=== PATIENT | female | born 1965 | race Caucasian/White ===

== ENCOUNTER 2018-06-30 05:01 | Inpatient (IN) ==
--- NOTE | 2018-06-30 05:09 | Emergency Department Note ---
Disposition Clinical Impression: DKA (diabetic ketoacidoses) Qualifiers: Diabetes mellitus type: type 2 Diabetes mellitus complication detail: without coma Qualified Code(s): E11.10 - Type 2 diabetes mellitus with ketoacidosis without coma Leukocytosis Qualifiers: Leukocytosis type: unspecified Qualified Code(s): D72.829 - Elevated white blood cell count, unspecified Altered mental status Qualifiers: Altered mental status type: unspecified Qualified Code(s): R41.82 - Altered mental status, unspecified Disposition: Admitted As Inpatient Condition: Critical Referrals: NONE,PCP [Primary Care Provider] - Forms: ED Satisfaction Letter Time of Disposition: 06:54 General Adult HPI - General Chief complaint: ED Altered Mental Status Stated complaint: altered mental status Time Seen by Provider: 06/30/18 05:06 Source: patient, EMS Mode of arrival: EMS Limitations: no limitations Nursing Notes Reviewed: Yes Vital Signs Reviewed: Yes - History of Present Illness HPI Narrative: Patient is a change, unknown per day and unknown age. She arrives via EMS with concern for altered mental status and DKA. Patient was from home, has a history of developmental delay and diabetes, lives with her elderly mother. Mother stated to EMS that the patient had been altered but unknown for how long. Unknown what her insulin regimen is a home where she has any other comorbidities. EMS states that they performed a blood glucose and it was registered as high. They also state that her initial O2 sat was 84% and the place her on a nonrebreather. They state that she has been combative while in route. They were unable to get any history from her or have her follow any commands. Patient altered, moaning, tachypnic and tachycardic on presentation. Unable to obtain ROS. Unable to follow commands. - Related Data Allergies Allergy/AdvReac Type Severity Reaction Status Date / Time pseudoephedrine Allergy Rash Verified 06/30/18 06:48 [From Sudafed] Limitations: ROS unobtainable due to patients medical condition Past Medical History - Past Medical History Source: unable to obtain Physical Exam - General Limitations: altered mental status General appearance: other (mouth breathing, moaning, lethargic) - Head Head exam: atraumatic, normocephalic, normal inspection - Eye Eye exam: Present: PERRL, EOMI, miosis - ENT ENT exam: mucous membranes dry - Neck Neck exam: Present: normal inspection, full ROM, trachea midline - Chest Chest inspection: Present: normal inspection, symmetric chest wall rise - Respiratory Respiratory exam: Present: normal lung sounds bilaterally - Cardiovascular Cardiovascular exam: Present: normal rhythm, tachycardia, normal heart sounds - Abdominal Exam Abdominal exam: Present: soft, Non-Tender. Absent: tenderness, distention, guarding, rebound, rigidity - Extremities Exam Extremities exam: Present: normal inspection, full ROM. Absent: tenderness, pedal edema - Neurological Exam Neurological exam: Present: other (lethargic, moaning, not following commands, not answering questions. ) - Skin Skin exam: Present: warm, dry, intact, normal color Course Course Narrative: Patient has developmental delay but unsure of her baseline mental status. She is tachycardic and tachypneic on presentation, dry mucous membranes, moaning, in conference was held, not answering any questions or following commands. She had a reported high glucose readings have had a repeated high glucose reading here on arrival. Currently concern for DKA. Patient was initially on a no nrebreather, I transitioned her over to 2 L nasal cannula oxygen as she is still satting in the upper 90s. Did not intubate on arrival due to concern for not being able to keep up with patient's respiratory rate with current concern for DKA. Family is supposed to be arriving shortly but no one is available at bedside to confirm her baseline mental status with history of developmental delay. We will go ahead and perform CT the head, chest x-ray, urinalysis to assess for signs of infection. Also obtain lactic acid and blood cultures. Also obtain DKA labs including beta hydroxybutyric acid, glucose, ABG. We will go ahead and give the patient 2 L normal saline bolus. We will go ahead and prepare insulin drip and then start once we get potassium back. EK06/30/2018 at 05:09. Sinus tachycardia. Heart rate 147. NC 130. QRS 91. QTC 402. Normal axis. No acute ST elevation or depression. Concern for possible peaked T waves in V2, V3. 06:28 labs show leukocytosis, acidosis of 7.18. Glucose of 999. Gap of 36. Bicarbonate less than 4. She also had elevated lactic acid level was 6.3. Elevated beta hydroxybutyric acid level. Urinalysis negative for bacteria. Chest x-ray negative for any acute cardio pulmonary process. Head CT negative for any acute intracranial abnormality. Currently concern DKA. Patient is maintaining her airway. Her blood pressure is 105 systolic. She has ultrasound peripheral line. Good access. Her heart rate is still in the 130s. 2 L normal saline bolus was ordered along with an insulin drip. Potassium 5.3. Waiting for family to arrive at bedside. The bread icer paged for ICU admission. 06:52 no bread icer call back. I talked with hospitalist instead who has accepted the patient to ICU for admission. Patient's heart rate and tachypnea is slowly improving. Still maintaining her airway. Insulin drip was started. Mother is now present and states that the patient was feeling unwell yesterday has not glucose in the 300s and had some nausea and vomiting and then progressively worsened. Patient does not have a source of infection at this time. Think by and Zosyn was started empirically in the beginning of the workup due to little history and patient being a poor historian. I do not feel that patient needs LP or meningitis workup as she has a reasonable source for altered mental status secondary to DKA at this time. Chest X-Ray 06/30/18 05:06 IMPRESSION: Negative low lung volume study D/ / Chapincito Walker MD / Chapincito Walker MD Interpreting Provider: Chapincito Walker MD Head CT 06/30/18 05:08 IMPRESSION: No acute intracranial abnormality. Mild paranasal sinus disease D/ / Chapincito Walker MD / Chapincito Walker MD Interpreting Provider: Chapincito Walker MD Vital Signs Temperature 97.9 F 06/30/18 05:10 Pulse Rate 145 06/30/18 05:10 Respiratory Rate 44 06/30/18 05:10 Blood Pressure 123/57 06/30/18 05:10 O2 Sat by Pulse Oximetry 100 06/30/18 05:10 Temperature 97.9 F 06/30/18 05:10 Pulse Rate 134 06/30/18 06:25 Respiratory Rate 32 06/30/18 06:25 Blood Pressure 102/64 06/30/18 06:25 O2 Sat by Pulse Oximetry 100 06/30/18 06:25 Oxygen Delivery Oxygen Delivery Nasal Cannula Medical Decision Making - [facility] Narrative Medical decision making narrative: Patient has developmental delay but unsure of her baseline mental status. She is tachycardic and tachypneic on presentation, dry mucous membranes, moaning, in conference was held, not answering any questions or following commands. She had a reported high glucose readings have had a repeated high glucose reading here on arrival. Currently concern for DKA. Patient was initially on a nonrebreather, I transitioned her over to 2 L nasal cannula oxygen as she is still satting in the upper 90s. Did not intubate on arrival due to concern for not being able to keep up with patient's respiratory rate with current concern for DKA. Family is supposed to be arriving shortly but no one is available at bedside to confirm her baseline mental status with history of developmental delay. We will go ahead and perform CT the head, chest x-ray, urinalysis to assess for signs of infection. Also obtain lactic acid and blood cultures. A lso obtain DKA labs including beta hydroxybutyric acid, glucose, ABG. We will go ahead and give the patient 2 L normal saline bolus. We will go ahead and prepare insulin drip and then start once we get potassium back. EK06/30/2018 at 05:09. Sinus tachycardia. Heart rate 147. NC 130. QRS 91. QTC 402. Normal axis. No acute ST elevation or depression. Concern for possible peaked T waves in V2, V3. 06:28 labs show leukocytosis, acidosis of 7.18. Glucose of 999. Gap of 36. Bicarbonate less than 4. She also had elevated lactic acid level was 6.3. Elevated beta hydroxybutyric acid level. Urinalysis negative for bacteria. Chest x-ray negative for any acute cardio pulmonary process. Head CT negative for any acute intracranial abnormality. Currently concern DKA. Patient is maintaining her airway. Her blood pressure is 105 systolic. She has ultrasound peripheral line. Good access. Her heart rate is still in the 130s. 2 L normal saline bolus was ordered along with an insulin drip. Potassium 5.3. Waiting for family to arrive at bedside. The bread icer paged for ICU admission. 06:52 no bread icer call back. I talked with hospitalist instead who has accepted the patient to ICU for admission. Patient's heart rate and tachypnea is slowly improving. Still maintaining her airway. Insulin drip was started. Mother is now present and states that the patient was feeling unwell yesterday has not glucose in the 300s and had some nausea and vomiting and then progressively worsened. Patient does not have a source of infection at this time. Think by and Zosyn was started empirically in the beginning of the workup due to little history and patient being a poor historian. I do not feel that patient needs LP or meningitis workup as she has a reasonable source for altered mental status secondary to DKA at this time. - Medical Records Medical records reviewed: Yes I reviewed the patient's medical records. - Lab Data Lab results reviewed: Yes I reviewed the patient's lab results. Result diagrams: 06/30/18 05:15 06/30/18 05:15 Lab Results 06/30/18 06/30/18 06/30/18 Range/Units 05:09 05:15 05:15 WBC 22.2 H (4.3-11.1) K/mcL RBC 3.54 L (3.82-4.97) M/mcL Hgb 12.1 (11.5-15.4) g/dL Hct 39.8 (35.3-44.9) % MCV 112.4 H (83.0-100.0) fL MCH 34.2 H (28.0-33.3) pg MCHC 30.4 L (31.6-35.5) g/dL RDW 12.5 (11.5-14.5) % Plt Count 308 (140-400) K/mcL MPV 11.6 (9.4-12.4) fL Immature Gran % 0.7 (0-4) % Seg Neutrophils % 78.3 % Lymphocytes % 10.8 % Monocytes % 9.9 % Eosinophils % 0.0 % Basophils % 0.3 % Neutrophils # 17.4 H (1.6-8.9) K/mcL Lymphocytes # 2.4 (0.6-4.6) K/mcL Monocytes # 2.2 H (0.0-1.3) K/mcL Eosinophils # 0.0 (0.0-0.6) K/mcL Basophils # 0.1 (0.0-0.2) K/mcL Platelet Estimate Normal (Normal) Macrocytosis Present A (Not Present) Sample Site L Radial ABG pH 7.18 L* (7.32-7.45) pH Units ABG pCO2 < 13 L* (35-45) mmHg ABG pO2 138 H (85-104) mmHg ABG HCO3 TNP ABG Total CO2 TNP ABG O2 Saturation TNP ABG Base Excess TNP Chay Test N/A O2 Delivery Device Cannula Inspired O2 28.0 (1-15=lpm [id number]=%) Sodium 130 L (136-145) mEq/L Potassium 5.3 H (3.5-5.1) mEq/L Chloride 90 L (98-107) mEq/L Carbon Dioxide < 4 L* (23-29) mEq/L BUN 31 H (8-23) mg/dL Creatinine 1.54 H (0.60-1.20) mg/dL Est GFR ( Amer) 36 L (> 60) Est GFR (Non-Af Amer) 30 L (> 60) BUN/Creatinine Ratio 20 (6-26) Glucose 999 H* (70-105) mg/dL Calculated Osmolality 327 H (280-300) Lactic Acid (0.5-2.2) mmol/L Calcium 9.6 (8.6-10.3) mg/dL Phosphorus 7.6 H (2.7-4.5) mg/dL Magnesium 2.2 (1.6-2.6) mg/dL Troponin I < 0.03 (< 0.04) ng/mL Beta-Hydroxybutyric Acd (0.02-0.27) mmol/L Urine Color (Yellow) Urine Clarity (Clear) Urine pH (5.0-8.0) pH Units Ur Specific Joshua (1.010-1.025) Urine Protein (Neg-Trace) mg/dL Urine Glucose (UA) (Normal) mg/dL Urine Ketones (Negative) mg/dL Urine Blood (Negative) Urine Nitrite (Negative) Urine Bilirubin (Negative) Urine Urobilinogen (Normal) mg/dL Ur Leukocyte Esterase (Negative) Urine Microscopic RBC (0-3) per hpf Urine Microscopic WBC (0-3) per hpf Ur Squamous Epith Cells (None-Few) per lpf Urine Bacteria (None-Few) per hpf Hyaline Casts (None-Few) per lpf Ur Culture Indicated? (NO) Salicylates < 2.5 L (15.0-30.0) mg/dL Person Notif of Crit DAPHNE 06/30/18 06/30/18 06/30/18 Range/Units 05:15 05:15 05:43 WBC (4.3-11.1) K/mcL RBC (3.82-4.97) M/mcL Hgb (11.5-15.4) g/dL Hct (35.3-44.9) % MCV (83.0-100.0) fL MCH (28.0-33.3) pg MCHC (31.6-35.5) g/dL RDW (11.5-14.5) % Plt Count (140-400) K/mcL MPV (9.4-12.4) fL Immature Gran % (0-4) % Seg Neutrophils % % Lymphocytes % % Monocytes % % Eosinophils % % Basophils % % Neutrophils # (1.6-8.9) K/mcL Lymphocytes # (0.6-4.6) K/mcL Monocytes # (0.0-1.3) K/mcL Eosinophils # (0.0-0.6) K/mcL Basophils # (0.0-0.2) K/mcL Platelet Estimate (Normal) Macrocytosis (Not Present) Sample Site ABG pH (7.32-7.45) pH Units ABG pCO2 (35-45) mmHg ABG pO2 (85-104) mmHg ABG HCO3 ABG Total CO2 ABG O2 Saturation ABG Base Excess Chay Test O2 Delivery Device Inspired O2 (1-15=lpm [id number]=%) Sodium (136-145) mEq/L Potassium (3.5-5.1) mEq/L Chloride (98-107) mEq/L Carbon Dioxide (23-29) mEq/L BUN (8-23) mg/dL Creatinine (0.60-1.20) mg/dL Est GFR ( Amer) (> 60) Est GFR (Non-Af Amer) (> 60) BUN/Creatinine Ratio (6-26) Glucose (70-105) mg/dL Calculated Osmolality (280-300) Lactic Acid 6.3 H* (0.5-2.2) mmol/L Calcium (8.6-10.3) mg/dL Phosphorus (2.7-4.5) mg/dL Magnesium (1.6-2.6) mg/dL Troponin I (< 0.04) ng/mL Beta-Hydroxybutyric Acd > 2.00 H (0.02-0.27) mmol/L Urine Color Yellow (Yellow) Urine Clarity Clear (Clear) Urine pH 6.0 (5.0-8.0) pH Units Ur Specific Joshua 1.025 (1.010-1.025) Urine Protein 30 H (Neg-Trace) mg/dL Urine Glucose (UA) >=1000 H (Normal) mg/dL Urine Ketones 80 H (Negative) mg/dL Urine Blood Negative (Negative) Urine Nitrite Negative (Negative) Urine Bilirubin Large H (Negative) Urine Urobilinogen Normal (Normal) mg/dL Ur Leukocyte Esterase Negative (Negative) Urine Microscopic RBC 5-15 H (0-3) per hpf Urine Microscopic WBC 3-5 H (0-3) per hpf Ur Squamous Epith Cells Many H (None-Few) per lpf Urine Bacteria None Seen (None-Few) per hpf Hyaline Casts None Seen (None-Few) per lpf Ur Culture Indicated? NO (NO) Salicylates (15.0-30.0) mg/dL Person Notif of Crit - Radiology Data Radiology results reviewed: Yes I reviewed the patient's radiology results. Chest X-Ray 06/30/18 05:06 IMPRESSION: Negative low lung volume study D/ / Chapincito Walker MD / Chapincito Walker MD Interpreting Provider: Chapincito Walker MD Head CT 06/30/18 05:08 IMPRESSION: No acute intracranial abnormality. Mild paranasal sinus disease D/ / Chapincito Walker MD / Chapincito Walker MD Interpreting Provider: Chapincito Walker MD - EKG Data EKG #1 EKG attestation: Yes I reviewed and interpreted this EKG. Paola Bennett.B.A.R. Situation: Demographics, MOA Background: Presenting Complaint, Relevant PMH, Meds, & Allergies Assessment: Vital Signs, Course and respsone to treatment, Exam Concerns, Patient/Family Expectation, Pertinant Lab Results Recommendation: Barrier(s) to disposition, Recommendation based on pending studies, treatments, or consults Paola Report Given to: Dr. Milana Guevara Repor Time: 06:54 Attestation Statement - Attestation Attestation: I have seen this patient with the resident physician, I have personally evaluated this patient. I had reviewed the chart and document dictation by the resident physician and aM in agreement with the information documented by the resident physician. Please see documentation by the resident physician for complete chart including past medical history, family medical history, review of systems, current history and physical and laboratory and imaging studies. I was present for all procedures, provided direct supervision for all procedures, was present for the entirety of all procedures and provided direct guidance during the procedures. Please see documentation by the resident physician for any procedures performed.
[2018-06-30] MEDS ORDERED: *HR* Dextrose 50 % in Water (Syg) 50 ML SYRINGE IVP PRN ×3 (05:12→17:08)
[2018-06-30 05:14] LABS: ABG PCO2 < 13 mmHg (35-45); ABG PH 7.18 pH Units (7.32-7.45); ABG PO2 138 mmHg (85-104)
[2018-06-30] MEDS ORDERED: 0.9 % Sodium Chloride 1,000 ML ONE ×2 (05:14→05:54)
[2018-06-30] MEDS ORDERED: Insulin Human Regular 100 UNIT in 0.9 % Sodium Chloride 100 ML IVC SCH ×2 (05:15→17:15)
[2018-06-30 05:30] LABS: Basophils # 0.1 K/mcL (0.0-0.2); Basophils % 0.3 %; Hematocrit 39.8 % (35.3-44.9); Hemoglobin 12.1 g/dL (11.5-15.4); Immature Granulocytes % 0.7 % (0-4); Lymphocytes # 2.4 K/mcL (0.6-4.6); Lymphocytes % 10.8 %; Mean Corpuscular HGB Conc 30.4 g/dL (31.6-35.5); Mean Corpuscular Hemoglobin 34.2 pg (28.0-33.3); Mean Corpuscular Volume 112.4 fL (83.0-100.0); Mean Platelet Volume 11.6 fL (9.4-12.4); Monocytes # 2.2 K/mcL (0.0-1.3); Monocytes % 9.9 %; Neutrophils # 17.4 K/mcL (1.6-8.9); Platelet Count 308 K/mcL (140-400); Red Blood Count 3.54 M/mcL (3.82-4.97); Red Cell Distribution Width 12.5 % (11.5-14.5); Segmented Neutrophils % 78.3 %
[2018-06-30] MEDS: 0.9 % Sodium Chloride 1,000 ML IVC SCH ×20 (05:45→20:47)
[2018-06-30 05:56] LABS: Macrocytosis Present (Not Present)
[2018-06-30 05:57] LABS: Bilirubin,Urine Large (Negative); Blood,Urine Negative (Negative); Clarity,Urine Clear (Clear); Color,Urine Yellow (Yellow); Glucose,Urine (UA) >=1000 mg/dL (Normal); Ketones,Urine 80 mg/dL (Negative); Leukocyte Esterase,Urine Negative (Negative); Nitrite,Urine Negative (Negative); Protein,Urine 30 mg/dL (Neg-Trace); Specific Gravity,Urine 1.025 (1.010-1.025); Urobilinogen,Urine Normal (Normal)
[2018-06-30 05:57] LABS: Platelet Estimate Normal (Normal)
[2018-06-30 05:58] LABS: Bacteria,Urine None Seen per hpf (None-Few); Hyaline Casts,Urine None Seen per lpf (None-Few); Squamous Epithelial Cell,Urine Many per lpf (None-Few)
[2018-06-30 06:01] LABS: BUN/Creatinine Ratio 20 (6-26); Blood Urea Nitrogen 31 mg/dL (8-23); Calcium 9.6 mg/dL (8.6-10.3); Chloride 90 mEq/L (98-107); Magnesium 2.2 mg/dL (1.6-2.6); Phosphorous 7.6 mg/dL (2.7-4.5); Potassium 5.3 mEq/L (3.5-5.1); Sodium 130 mEq/L (136-145); Troponin I < 0.03 ng/mL (< 0.04); eGFR For Non-African Americans 30 (> 60)
[2018-06-30] MEDS ORDERED: Piperacillin/Tazobactam 3.375 GM in 0.9 % Sodium Chloride Mini Bag 100 ML IVPB ONE (06:06)
[2018-06-30 06:08] LABS: Glucose 999 mg/dL (70-105); Osmolality,Calculated 327 (280-300)
[2018-06-30 06:22] LABS: Carbon Dioxide < 4 mEq/L (23-29)
--- NOTE | 2018-06-30 06:42 | Emergency Department Note ---
Disposition Clinical Impression: DKA (diabetic ketoacidoses) Qualifiers: Diabetes mellitus type: type 2 Diabetes mellitus complication detail: without coma Qualified Code(s): E11.10 - Type 2 diabetes mellitus with ketoacidosis without coma Leukocytosis Qualifiers: Leukocytosis type: unspecified Qualified Code(s): D72.829 - Elevated white blood cell count, unspecified Altered mental status Qualifiers: Altered mental status type: unspecified Qualified Code(s): R41.82 - Altered mental status, unspecified Disposition: Admitted As Inpatient Condition: Critical Forms: ED Satisfaction Letter General Adult HPI - General Chief complaint: ED Altered Mental Status Stated complaint: altered mental status Time Seen by Provider: 06/30/18 05:06 Source: patient, EMS Mode of arrival: EMS Limitations: altered mental status - History of Present Illness Pain Scale: 0 - Related Data Allergies Allergy/AdvReac Type Severity Reaction Status Date / Time Unable to Assess Allergy Unverified 06/30/18 05:44 Past Medical History - Past Medical History Medical history: Reports: no medical history - Social History Smoking Status: Unknown if ever smoked Physical Exam - General Limitations: altered mental status General appearance: other (mouth breathing, moaning, lethargic) Course Vital Signs Temperature 97.9 F 06/30/18 05:10 Pulse Rate 145 06/30/18 05:10 Respiratory Rate 44 06/30/18 05:10 Blood Pressure 123/57 06/30/18 05:10 O2 Sat by Pulse Oximetry 100 06/30/18 05:10 Temperature 97.9 F 06/30/18 05:10 Pulse Rate 134 06/30/18 06:25 Respiratory Rate 32 06/30/18 06:25 Blood Pressure 102/64 06/30/18 06:25 O2 Sat by Pulse Oximetry 100 06/30/18 06:25 Oxygen Delivery Oxygen Delivery Nasal Cannula Medical Decision Making - Lab Data Result diagrams: 06/30/18 05:15 06/30/18 05:15 Lab Results 06/30/18 06/30/18 06/30/18 Range/Units 05:09 05:15 05:15 WBC 22.2 H (4.3-11.1) K/mcL RBC 3.54 L (3.82-4.97) M/mcL Hgb 12.1 (11.5-15.4) g/dL Hct 39.8 (35.3-44.9) % MCV 112.4 H (83.0-100.0) fL MCH 34.2 H (28.0-33.3) pg MCHC 30.4 L (31.6-35.5) g/dL RDW 12.5 (11.5-14.5) % Plt Count 308 (140-400) K/mcL MPV 11.6 (9.4-12.4) fL Immature Gran % 0.7 (0-4) % Seg Neutrophils % 78.3 % Lymphocytes % 10.8 % Monocytes % 9.9 % Eosinophils % 0.0 % Basophils % 0.3 % Neutrophils # 17.4 H (1.6-8.9) K/mcL Lymphocytes # 2.4 (0.6-4.6) K/mcL Monocytes # 2.2 H (0.0-1.3) K/mcL Eosinophils # 0.0 (0.0-0.6) K/mcL Basophils # 0.1 (0.0-0.2) K/mcL Platelet Estimate Normal (Normal) Macrocytosis Present A (Not Present) Sample Site L Radial ABG pH 7.18 L* (7.32-7.45) pH Units ABG pCO2 < 13 L* (35-45) mmHg ABG pO2 138 H (85-104) mmHg ABG HCO3 TNP ABG Total CO2 TNP ABG O2 Saturation TNP ABG Base Excess TNP Chay Test N/A O2 Delivery Device Cannula Inspired O2 28.0 (1-15=lpm [id number]=%) Sodium 130 L (136-145) mEq/L Potassium 5.3 H (3.5-5.1) mEq/L Chloride 90 L (98-107) mEq/L Carbon Dioxide < 4 L* (23-29) mEq/L BUN 31 H (8-23) mg/dL Creatinine 1.54 H (0.60-1.20) mg/dL Est GFR ( Amer) 36 L (> 60) Est GFR (Non-Af Amer) 30 L (> 60) BUN/Creatinine Ratio 20 (6-26) Glucose 999 H* (70-105) mg/dL Calculated Osmolality 327 H (280-300) Lactic Acid (0.5-2.2) mmol/L Calcium 9.6 (8.6-10.3) mg/dL Phosphorus 7.6 H (2.7-4.5) mg/dL Magnesium 2.2 (1.6-2.6) mg/dL Troponin I < 0.03 (< 0.04) ng/mL Beta-Hydroxybutyric Acd (0.02-0.27) mmol/L Urine Color (Yellow) Urine Clarity (Clear) Urine pH (5.0-8.0) pH Units Ur Specific [place] (1.010-1.025) Urine Protein (Neg-Trace) mg/dL Urine Glucose (UA) (Normal) mg/dL Urine Ketones (Negative) mg/dL Urine Blood (Negative) Urine Nitrite (Negative) Urine Bilirubin (Negative) Urine Urobilinogen (Normal) mg/dL Ur Leukocyte Esterase (Negative) Urine Microscopic RBC (0-3) per hpf Urine Microscopic WBC (0-3) per hpf Ur Squamous Epith Cells (None-Few) per lpf Urine Bacteria (None-Few) per hpf Hyaline Casts (None-Few) per lpf Ur Culture Indicated? (NO) Person Notif of Crit DAPHNE 06/30/18 06/30/18 06/30/18 Range/Units 05:15 05:15 05:43 WBC (4.3-11.1) K/mcL RBC (3.82-4.97) M/mcL Hgb (11.5-15.4) g/dL Hct (35.3-44.9) % MCV (83.0-100.0) fL MCH (28.0-33.3) pg MCHC (31.6-35.5) g/dL RDW (11.5-14.5) % Plt Count (140-400) K/mcL MPV (9.4-12.4) fL Immature Gran % (0-4) % Seg Neutrophils % % Lymphocytes % % Monocytes % % Eosinophils % % Basophils % % Neutrophils # (1.6-8.9) K/mcL Lymphocytes # (0.6-4.6) K/mcL Monocytes # (0.0-1.3) K/mcL Eosinophils # (0.0-0.6) K/mcL Basophils # (0.0-0.2) K/mcL Platelet Estimate (Normal) Macrocytosis (Not Present) Sample Site ABG pH (7.32-7.45) pH Units ABG pCO2 (35-45) mmHg ABG pO2 (85-104) mmHg ABG HCO3 ABG Total CO2 ABG O2 Saturation ABG Base Excess Chay Test O2 Delivery Device Inspired O2 (1-15=lpm [id number]=%) Sodium (136-145) mEq/L Potassium (3.5-5.1) mEq/L Chloride (98-107) mEq/L Carbon Dioxide (23-29) mEq/L BUN (8-23) mg/dL Creatinine (0.60-1.20) mg/dL Est GFR ( Amer) (> 60) Est GFR (Non-Af Amer) (> 60) BUN/Creatinine Ratio (6-26) Glucose (70-105) mg/dL Calculated Osmolality (280-300) Lactic Acid 6.3 H* (0.5-2.2) mmol/L Calcium (8.6-10.3) mg/dL Phosphorus (2.7-4.5) mg/dL Magnesium (1.6-2.6) mg/dL Troponin I (< 0.04) ng/mL Beta-Hydroxybutyric Acd > 2.00 H (0.02-0.27) mmol/L Urine Color Yellow (Yellow) Urine Clarity Clear (Clear) Urine pH 6.0 (5.0-8.0) pH Units Ur Specific [place] 1.025 (1.010-1.025) Urine Protein 30 H (Neg-Trace) mg/dL Urine Glucose (UA) >=1000 H (Normal) mg/dL Urine Ketones 80 H (Negative) mg/dL Urine Blood Negative (Negative) Urine Nitrite Negative (Negative) Urine Bilirubin Large H (Negative) Urine Urobilinogen Normal (Normal) mg/dL Ur Leukocyte Esterase Negative (Negative) Urine Microscopic RBC 5-15 H (0-3) per hpf Urine Microscopic WBC 3-5 H (0-3) per hpf Ur Squamous Epith Cells Many H (None-Few) per lpf Urine Bacteria None Seen (None-Few) per hpf Hyaline Casts None Seen (None-Few) per lpf Ur Culture Indicated? NO (NO) Person Notif of Crit Attestation Statement - Attestation Attestation: I have seen this patient with the resident physician, I have personally evaluated this patient. I had reviewed the chart and document dictation by the resident physician and aM in agreement with the information documented by the resident physician. Please see documentation by the resident physician for complete chart including past medical history, family medical history, review of systems, current history and physical and laboratory and imaging studies. I was present for all procedures, provided direct supervision for all procedures, was present for the entirety of all procedures and provided direct guidance during the procedures. Please see documentation by the resident physician for any procedures performed. Patient was brought in for altered mental status and high blood sugar from the paramedics. No further history was really available upon arrival the paramedics and they were called for altered mental status and elevated blood sugar, they report upon their arrival patient was breathing very fast, low sugar was critical high in the transported the patient to the emergency department. Eventually the patient's mother was able to make it to the emergency department was able to provide further history although at the beginning history was not available. The mother states that the patient was not feeling well starting Thursday night just feeling tired and all throughout the day yesterday was not feeling well generally weak with some intermittent nausea vomiting with some fluctuations in her blood sugar but the highest they got was in the 300s. When the mother came home from work at the patient seemed tired but was talking and asked for water, she gave her a glass of water then went back to check on her about half an hour later she requested more water but then patient started becoming less responsive. The mother states that the patient has been in DKA multiple times in the past, and in fact has been much worse than today and has required intubation. Upon arrival the patient the patient had a decreased level of consciousness, she was without purposeful response apart from withdrawal to pain she did make incomprehensible sounds spontaneously and her eyes worse but his open although she was not talking, was unable to follow any commands. Blood sugar was found to be critical high. Pupils were slightly small and reactive, oropharynx was very dry appearing lungs were clear heart was tachycardic but regular, significant tachypnea was noted rectal temp was normal. Abdomen was soft and nondistended. No rash or petechiae. Patient was moving her neck spontaneously without difficulty but unable to assess for true meningeal sign, as she is unable to cooperate with exam. IVs were established, large bolus of IV fluids was initiated, insulin drip per DKA was initiated. A ABG was obtained, which demonstrated a pH of 7.18, PCO2 was less than 13 saturation within acceptable limits. This was on nasal cannula oxygen of 2 L. CBC showed leukocytosis of 22,000 no other acute findings. Renal panel showed slightly elevated creatinine of 1.5 blood sugar of 999 bicarbonate was less than 4 potassium was 5.3. Lactate elevated at 6.3. Urinalysis within acceptable limits. Significant elevated ketones. Elevated phosphorus magnesium within acceptable limits. Chest x-ray as interpreted by radiology showed no acute abnormality. Head CT showed no acute findings as interpreted by radiology as were for altered mental status, with no history available upon arrival the patient. Patient did have persistent significant tachypnea, improvement of heart rate. EKG was a sinus rhythm sinus tachycardia no acute ischemia no other acute findings as interpreted by myself. Secondary to patient with significant compensation for her metabolic acidosis with significant tachypnea, was felt that intubation was not indicated, as she is maintaining her airway, pH is greater than 7.1, and she is compensating for her profound metabolic acidosis with a respiratory alkalosis, but we will continue to monitor very closely for need for respiratory support but maintaining respiratory rates as fast as this patient is breathing would be very difficult to maintain with mechanical ventilation, and she continues to maintain her airway. The mother states that she is actually way more responsive now than she was at home and that she has seen the patient much worse in the past. Secondary to tachypnea or tachycardia elevated lactate and leukocytosis blood cultures were ordered and patient was given IV antibiotics, however I am highly suspicious that this is all related to diabetic ketoacidosis at this time. The mother states that she had not complaining of any headache or neck pain over the last day or so, and was talking to her before this all started, I am not suspicious of meningitis at this time. Patient will be admitted to the ICU for further management. Total critical care time as provided by myself excluding any procedures performed was 65 minutes.
[2018-06-30 06:43] LABS: Salicylate < 2.5 mg/dL (15.0-30.0)
[2018-06-30] MEDS ORDERED: D5% in 0.45% NACL w KCl 20 MEQ/1,000 ML MLS IVC PRN (07:13)
[2018-06-30] MEDS ORDERED: Insulin Regular, Human 100 UNIT/ML IV PRN (07:13)
[2018-06-30] MEDS ORDERED: Naloxone 0.4 MG/ML INJ IVP PRN (07:13)
[2018-06-30] MEDS ORDERED: D5% in 0.45% NACL 1,000 ML IVC PRN (07:13)
[2018-06-30] MEDS ORDERED: Aminoglycoside Consult 1 EACH MC ONE (07:28)
[2018-06-30 07:47] LABS: VBG HCO3 4 mEq/L (21-27); VBG PCO2 24 mmHg (41-51); VBG PH 6.85 pH Units (7.32-7.42); VBG PO2 100 mmHg (25-50)
[2018-06-30 08:03] LABS: Amphetamine Screen,Urine Negative ng/mL (Cutoff=1000); Barbiturate Screen,Urine Negative ng/mL (Cutoff=200); Benzodiazepines Screen,Urine Negative ng/mL (Cutoff=200); Cannabinoid Screen,Urine Negative ng/mL (Cutoff = 50); Cocaine Screen,Urine Negative ng/mL (Cutoff= 300); Opiate Screen,Urine Negative ng/mL (Cutoff=300); Phencyclidine Screen,Urine Negative ng/mL (Cutoff=25)
[2018-06-30 08:10] LABS: Mean Corpuscular HGB Conc 29.8 g/dL (31.6-35.5)
[2018-06-30 08:11] LABS: Hematocrit 41.6 % (35.3-44.9); Hemoglobin 12.4 g/dL (11.5-15.4); Mean Corpuscular Hemoglobin 34.5 pg (28.0-33.3); Mean Corpuscular Volume 115.9 fL (83.0-100.0); Mean Platelet Volume 11.4 fL (9.4-12.4); Platelet Count 282 K/mcL (140-400); Red Blood Count 3.59 M/mcL (3.82-4.97); Red Cell Distribution Width 12.4 % (11.5-14.5)
[2018-06-30 08:12] LABS: Nucleated Red Blood Cells 0.1 /100 WBC (0)
[2018-06-30] MEDS ORDERED: Sodium Bicarbonate 50 MEQ/50 ML VIAL IVP ONE (08:31)
[2018-06-30 08:35] LABS: Calcium 9.1 mg/dL (8.6-10.3); Magnesium 2.1 mg/dL (1.6-2.6); Phosphorous 7.7 mg/dL (2.7-4.5); Potassium 4.7 mEq/L (3.5-5.1)
--- NOTE | 2018-06-30 08:38 | Internal Med History&Physical ---
Date of Encounter: 06/30/18 Time of Encounter: 07:00 Internal Medicine - H&P: HPI Admitted From: Home Plans for Post Hospital Care: Home History of present illness: Ms. Shay is a 52 year old female with history of insulin-dependent diabetes and multiple DKA admissions, hypothyroidism and hyperlipidemia presented to the emergency department with altered mental status and elevated blood glucose. History is limited as patient is unable to provide much history. As per patient his mother she does administer her own insulin when asked from the patient had much insulin if she administers long-acting insulin to herself she is unsure. She reports that she covers her glucose levels with sliding scale insulin. When asked to recall her medication list she is unable to name her medications however her mother provided us with her medication list. As per her mother she had multiple episodes of DKA's they were unable to recall them was the last time she had DKA. As per patient her blood glucose has been running high for a few days and she is been trying to covered with her insulin at home. Her mother insisted that she will come to the emergency department for further evaluation and management of her elevated blood glucose levels. Patient denies dysuria, cough, fever, chills, nausea, vomiting or diarrhea. Has had no chest pain, no palpitations or shortness of breath. Past Med Surg Social Fam HX - Past Medical History Medical history: diabetes, thyroid disease, other Additional medical history: "something about her heart" - Social History Smoking Status: Unknown if ever smoked Smokeless Tobacco Status: No Alcohol use: none - Family History Mother Living Status: Still Living Brother Living Status: Still Living Hx Family Genitourinary Disorders: Yes (dialysis) Hx Family Endocrine Disorder: Yes (diabetes) Internal Medicine - H&P: Meds Aspirin 03/26/17 [History] Cholestyramine 03/26/17 [History] Cyclobenzaprine [Flexeril] 10 mg PO TID #20 tablet 03/26/17 [Rx] Ferrous Gluconate 03/26/17 [History] Furosemide 03/26/17 [History] Gabapentin 03/26/17 [History] Gabapentin [Neurontin] 300 mg PO TID #20 capsule 03/26/17 [Rx] Hydrocodone/Acetaminophen 03/26/17 [History] Levothyroxine 03/26/17 [History] Lisinopril 03/26/17 [History] Meloxicam 15 mg PO DAILY #10 tablet 03/26/17 [Rx] Multivitamins 03/26/17 [History] Novolog 03/26/17 [History] Rosuvastatin 03/26/17 [History] Sertraline 03/26/17 [History] Tresiba Flextouch U-100 03/26/17 [History] Dicyclomine 05/11/18 [History] Meclizine 05/11/18 [History] Naproxen [Naprosyn] 500 mg PO BID PRN #20 tablet 05/11/18 [Rx] Ranitidine HCl 05/11/18 [History] Simvastatin 05/11/18 [History] Allergy/AdvReac Type Severity Reaction Status Date / Time pseudoephedrine Allergy Rash Verified 06/30/18 07:59 [From [facility]] All Systems PM: A 10-system review of systems was performed and is negative for pertinent findings except as documented above in the HPI. - Constitutional Vitals: Temp Pulse Resp BP Pulse Ox 97.9 F 135 26 140/83 100 06/30/18 05:10 06/30/18 08:10 06/30/18 08:10 06/30/18 08:10 06/30/18 08:10 Exam: General: Patient is alert, oriented, in moderate distress, tachypneic, Head: atraumatic, normocephalic, Eye: normal appearance, PERRL, no scleral icterus, no conjunctival injection ENT: mucous membranes extremely dry, normal external ear exam Neck: normal inspection, trachea midline, full ROM, Chest: normal inspection, symmetric chest rise Respiratory: Good respiratory effort. Tachypneic, Bilateral breath sounds are clear without wheezing, crackles, or rhonchi. Cardiovascular: Tachycardic s1 and s2 No clicks, rubs, gallops, or murmors. Abdomen: Bowel sounds present normoactive x-4 quadrants. Abdomen is soft, no ndistended. no Epigastric tenderness. No guarding or rebound. No organomegaly noted, obese musculoskeletal: Spontaneously moving all extremities. no edema, no calf tenderness, no ulcers bilateral feet Skin: warm, dry, intact. Neuro: Alert and oriented x3, no focal deficits Psych: Patient's affect is normal Internal Med - H&P Results - Labs CBC & Chem 7: 06/30/18 07:57 06/30/18 09:34 Labs: Short CBC 06/30/18 06/30/18 Range/Units 05:15 07:57 WBC 22.2 H 25.7 H (4.3-11.1) K/mcL Hgb 12.1 12.4 (11.5-15.4) g/dL Hct 39.8 41.6 (35.3-44.9) % Plt Count 308 282 (140-400) K/mcL Neutrophils # 17.4 H (1.6-8.9) K/mcL BMP 06/30/18 05:15 Sodium 130 L Potassium 5.3 H Chloride 90 L Carbon Dioxide < 4 L* BUN 31 H Creatinine 1.54 H Glucose 999 H* Calcium 9.6 Cardiac Enzymes 06/30/18 Range/Units 05:15 Troponin I < 0.03 (< 0.04) ng/mL Urine 06/30/18 Range/Units 05:43 Urine Color Yellow (Yellow) Urine Clarity Clear (Clear) Urine pH 6.0 (5.0-8.0) pH Units Ur Specific [place] 1.025 (1.010-1.025) Urine Protein 30 H (Neg-Trace) mg/dL Urine Glucose (UA) >=1000 H (Normal) mg/dL - ABG Interpretation ABG results: 06/30/18 06/30/18 05:09 07:40 ABG pH 7.18 L* ABG pCO2 < 13 L* ABG pO2 138 H ABG HCO3 TNP ABG Total CO2 TNP ABG O2 Saturation TNP ABG Base Excess TNP VBG pH 6.85 L* VBG pCO2 24 L VBG pO2 100 H VBG HCO3 4 L - EKG Data -: EKG Interpreted by Myself (Sinus tachycardia, QTC of 432) - EKG Data Prior EKG available for review: no - Impressions ITS Impressions Chest X-Ray 06/30/18 05:06 IMPRESSION: Negative low lung volume study D/ / Chapincito Walker MD / Chapincito aWlker MD Interpreting Provider: Chapincito Walker MD Head CT 05/01/19 05:08 IMPRESSION: No acute intracranial abnormality. Mild paranasal sinus disease D/ / Chap[place]ito Walker MD / Chap[place]ito Walker MD Interpreting Provider: Chap[place]ito Walker MD - Assessment and Plan (1) DKA (diabetic ketoacidoses) Current Visit: Yes Status: Acute Assessment and plan: Diabetic ketoacidosis most likely secondary to poor compliance to insulin rule out infection DKA protocol- admit to ICU ( follow labs if she continues to worsen will consult ICU team and consider further imaging) Beta hydroxybutyrate > 2 BMP/VBG q4h [place] Q1H, call MD if FS less than 250, can start D5 1/2 NS Start Insulin drip stat at 0.1 unit/kg/hr then taper accordingly recieved 1 L of fluid bolus in the ED start IVF NS 2000 bolus stat and continue then with 200 ml/ hr Add potassium to IVF once below 5.2 as per protocol follow magnesium and phosphorus Zofran for Nausea and vomiting prn bicarb 50 meq once UTOX, A1c IV accesss team consulted for midline placement as she had poor IV access in the ED and requires aggressive IV hydration Vitals as nursing protocol Activity: Strict Bed Rest Standard precaution Prognosis: Guarded. Diet NPO x now DVT prophylaxis heparin subcutaneous Qualifiers: Diabetes mellitus type: type 2 Diabetes mellitus complication detail: without coma Qualified Code(s): E11.10 - Type 2 diabetes mellitus with ketoacidosis without coma (2) DM w/ hyperosmolarity Current Visit: Yes Status: Acute Assessment and plan: hyperosmolar state secondary to DKA serum osmolality of 343 management as above (3) Acute encephalopathy Current Visit: Yes Status: Acute Assessment and plan: acute metabolic encephalopathy secondary to DKA rule out other etiologies CT head: IMPRESSION:No acute intracranial abnormality.Mild paranasal sinus disease neurochecks Q4H fall,seizure and aspiration precautions (4) Leukocytosis Current Visit: Yes Status: Acute Assessment and plan: Most likely secondary to DKA and severe dehydration doubt infectious etiology but will rule out Chest x-ray negative low lung volume study UA: Negative for UTI Was started on vancomycin and Zosyn empirically we will continue however we will consider discontinuing once infection has been ruled out. Pro-calcitonin Continue to follow lactic acid Blood cultures ordered Qualifiers: Leukocytosis type: unspecified Qualified Code(s): D72.829 - Elevated white blood cell count, unspecified (5) Lactic acidosis Current Visit: Yes Status: Acute Assessment and plan: Most likely secondary to severe dehydration CPK and drug screen stat Continue to follow lactic acid every 3 hours Continue with IV fluids Antibiotics as above (6) Acute renal failure (ARF) Current Visit: Yes Status: Acute Assessment and plan: Most likely secondary to severe dehydration unsure as to what baseline creatinine/kidney function is- suspect has CKD due to uncontrolled DM also hyperphosphatemia on labs. Continue with IV fluids Renal ultrasound to rule out hydronephrosis Strict intake and output Qualifiers: Acute renal failure type: unspecified Qualified Code(s): N17.9 - Acute kidney failure, unspecified (7) Hypothyroidism Current Visit: Yes Status: Acute Assessment and plan: continue home medications TSH in AM Qualifiers: Hypothyroidism type: acquired Qualified Code(s): E03.9 - Hypothyroidism, unspecified (8) DVT prophylaxis Current Visit: Yes Status: Acute Assessment and plan: heparin sc - Time Spent With Patient Total time spent is greater than 50% in coordination of care (as documented) at patient's floor/unit and/or counseling patient:
[2018-06-30 08:54] LABS: Macrocytosis Present (Not Present); Monocytes # 2.1 K/mcL (0.0-1.3); Neutrophils # 22.6 K/mcL (1.6-8.9); Platelet Estimate Normal (Normal)
[2018-06-30] MEDS: 0.9 % Sodium Chloride w KCl 20 MEQ/1,000 ML MLS IVC SCH ×10 (09:42→20:46)
[2018-06-30] MEDS: *HR* Heparin 5,000 UNIT/ML VIAL SQ SCH ×3 (09:47→20:17)
[2018-06-30 09:54] LABS: Estimated Average Glucose 232 mg/dl; Hemoglobin A1C 9.7 %
[2018-06-30 09:59] LABS: VBG HCO3 5 mEq/L (21-27); VBG PCO2 19 mmHg (41-51); VBG PH 7.03 pH Units (7.32-7.42); VBG PO2 159 mmHg (25-50)
[2018-06-30 10:09] LABS: Calcium 9.1 mg/dL (8.6-10.3); Magnesium 2.1 mg/dL (1.6-2.6); Phosphorous 5.9 mg/dL (2.7-4.5); Potassium 4.3 mEq/L (3.5-5.1)
[2018-06-30] MEDS ORDERED: *HR* HYDROcodone/Acet 5/325 mg TABLET PO PRN (12:32)
[2018-06-30 13:18] LABS: VBG HCO3 13 mEq/L (21-27); VBG PCO2 25 mmHg (41-51); VBG PO2 107 mmHg (25-50)
[2018-06-30] MEDS ORDERED: Ondansetron 4 MG/2 ML VIAL IVP PRN (13:39)
[2018-06-30 13:47] LABS: Calcium 7.9 mg/dL (8.6-10.3)
--- NOTE | 2018-06-30 14:19 | Electrocardiograph Report ---
[address] [place], [place] [address] Test Date: 2018-06-30 Pat Name: Sujata Shay Department: [id number] Room: [facility] Gender: F [employer] Chief: : 1965 Requested By: Lazaro Epperson Order Number: [id number] Reading MD: Jovani Alvarado Measurements Intervals [place] Rate: 147 P: 73 IN: 130 QRS: 49 QRSD: 91 T: 23 QT: 276 QTc: 432 Interpretive Statements Supraventricular tachycardia Electronically Signed On 06-30-2018 14:17:16 EDT by Jovani Alvarado
[2018-06-30] MEDS: Piperacillin/Tazobactam 3.375 GM in 0.9 % Sodium Chloride Mini Bag 100 ML IVPB SCH ×2 (15:17→23:05)
[2018-06-30] MEDS: Gabapentin 400 MG CAPSULE PO SCH ×2 (15:18→20:17)
[2018-06-30 15:50] LABS: VBG HCO3 8 mEq/L (21-27); VBG PCO2 21 mmHg (41-51); VBG PH 7.19 pH Units (7.32-7.42); VBG PO2 98 mmHg (25-50)
[2018-06-30 15:59] LABS: Calcium 7.9 mg/dL (8.6-10.3); Magnesium 1.7 mg/dL (1.6-2.6); Phosphorous 2.1 mg/dL (2.7-4.5); Potassium 4.2 mEq/L (3.5-5.1)
[2018-06-30] MEDS: 0.45 % Sodium Chloride w/KCl 20 MEQ/1,000 ML MLS IVC SCH ×15 (17:38→20:47)
[2018-06-30] MEDS: D5% in 0.45% NACL w KCl 20 MEQ/1,000 ML MLS IVC PRN ×2 (17:44→21:30)
[2018-06-30] MEDS: Famotidine 20 MG TABLET PO SCH (20:17)
[2018-06-30 20:26] LABS: VBG HCO3 12 mEq/L (21-27); VBG PCO2 28 mmHg (41-51); VBG PH 7.25 pH Units (7.32-7.42); VBG PO2 105 mmHg (25-50)
[2018-06-30 20:49] LABS: Calcium 7.8 mg/dL (8.6-10.3); Magnesium 1.7 mg/dL (1.6-2.6); Phosphorous 1.6 mg/dL (2.7-4.5)
[2018-06-30] MEDS ORDERED: Thiamine (B-1) 100 MG in D5% in Water 50 ML IVPB ONE (22:13)
[2018-07-01 00:08] LABS: ABG Base Excess -7 mEq/L (-2 to 3); ABG HCO3 17 mEq/L (21-27); ABG Oxygen Saturation 98 % (95-98); ABG PCO2 30 mmHg (35-45); ABG PH 7.36 pH Units (7.32-7.45); ABG PO2 99 mmHg (85-104); ABG TCO2 18 mEq/L (20-26)
[2018-07-01 00:24] LABS: BUN/Creatinine Ratio 22 (6-26); Blood Urea Nitrogen 22 mg/dL (6-20); Calcium 7.4 mg/dL (8.6-10.3); Carbon Dioxide 17 mEq/L (23-29); Chloride 119 mEq/L (98-107); Glucose 108 mg/dL (70-105); Osmolality,Calculated 302 (280-300); Potassium 3.6 mEq/L (3.5-5.1); Sodium 144 mEq/L (136-145); eGFR For Non-African Americans 59 (> 60)
[2018-07-01] MEDS ORDERED: Dextrose Gel 15 GM/37.5 ML TUBE PO PRN ×4 (00:59→16:57)
[2018-07-01] MEDS ORDERED: *HR* Dextrose 50 % in Water (Syg) 50 ML SYRINGE IVP PRN ×2 (00:59→16:57)
[2018-07-01] MEDS ORDERED: D5% in Water 1,000 ML IVC PRN ×2 (00:59→16:57)
[2018-07-01] MEDS: 0.9 % Sodium Chloride w KCl 20 MEQ/1,000 ML MLS IVC SCH ×2 (01:23→05:37)
[2018-07-01 01:43] LABS: Magnesium 1.6 mg/dL (1.6-2.6)
[2018-07-01 04:46] LABS: Albumin 2.7 g/dL (3.5-5.7); Albumin/Globulin Ratio 1.1 (1.1-2.2); Bilirubin,Direct 0.1 mg/dL (0.0-0.2); Bilirubin,Indirect 0.2 mg/dL (0.0-1.2); Bilirubin,Total 0.3 mg/dL (0.3-1.0); Chol/HDL Ratio 3.9 (0-4.9); Globulin 2.4 g/dL (2.4-3.5); Total Protein 5.1 g/dL (6.4-8.9)
[2018-07-01 04:52] LABS: Estimated Average Glucose 229 mg/dl; Hemoglobin A1C 9.6 %
[2018-07-01 04:59] LABS: Thyroid Stimulating Hormone 0.264 mcIU/mL (0.340-5.600)
[2018-07-01 05:01] LABS: Triiodothyronine (T3) Free 3.04 pg/mL (2.50-3.90)
[2018-07-01 05:10] LABS: Hemoglobin 9.9 g/dL (11.5-15.4); Mean Corpuscular Hemoglobin 34.3 pg (28.0-33.3); Mean Corpuscular Volume 103.8 fL (83.0-100.0); Mean Platelet Volume 11.2 fL (9.4-12.4); Platelet Count 154 K/mcL (140-400); Red Blood Count 2.89 M/mcL (3.82-4.97); Red Cell Distribution Width 12.2 % (11.5-14.5)
[2018-07-01 05:24] LABS: BUN/Creatinine Ratio 22 (6-26); Blood Urea Nitrogen 20 mg/dL (6-20); Calcium 7.5 mg/dL (8.6-10.3); Carbon Dioxide 15 mEq/L (23-29); Chloride 118 mEq/L (98-107); Glucose 358 mg/dL (70-105); Magnesium 1.6 mg/dL (1.6-2.6); Osmolality,Calculated 313 (280-300); Phosphorous 2.9 mg/dL (2.7-4.5); Sodium 143 mEq/L (136-145); eGFR For Non-African Americans > 60 (> 60)
[2018-07-01] MEDS: Insulin LISPRO 300 UNITS/3 ML VIAL SQ SCH ×6 (05:31→23:52)
[2018-07-01] MEDS: *HR* Heparin 5,000 UNIT/ML VIAL SQ SCH ×3 (05:36→20:39)
--- NOTE | 2018-07-01 07:24 | Internal Med Progress Note ---
<Mendez Mohamud S - Last Filed: 07/01/18 11:55> Hospitalist Progress Note - Encounter Date of Encounter: 07/01/18 Time of Encounter: 09:45 - Subjective Interval History: Pt is seen at bedside. She was admitted yesterday for DKA. She is very sleepy this morning. No acute complaints or concerns. - Exam Vitals: Temp Pulse Resp BP Pulse Ox 98.6 F 90 18 135/90 100 07/01/18 04:00 07/01/18 06:00 07/01/18 06:00 07/01/18 06:00 07/01/18 06:00 Exam: General: Patient is alert, oriented, in no distress, Head: atraumatic, normocephalic, Eye: normal appearance, PERRL, no scleral icterus, no conjunctival injection ENT: mucous membranes extremely dry, Neck: normal inspection, trachea midline, full ROM, Chest: normal inspection, symmetric chest rise Respiratory: Good respiratory effort. Bilateral breath sounds are clear without wheezing, crackles, or rhonchi. Cardiovascular: Tachycardic s1 and s2 No clicks, rubs, gallops, or murmors. Abdomen: Bowel sounds present normoactive x-4 quadrants. Abdomen is soft, nondistended. no Epigastric tenderness. No guarding or rebound. No organomegaly noted, obese musculoskeletal: Spontaneously moving all extremities. no edema, no calf tenderness, no ulcers bilateral feet Skin: warm, dry, intact. Neuro: Alert and oriented x3, no focal deficits Psych: Patient's affect is normal - Assessment and Plan (1) DKA (diabetic ketoacidoses) Current Visit: Yes Status: Acute Assessment and Plan: DKA most likely secondary to compliance vs infectious vs pancreatitis - pt was admitted to the ICU on 06/30/18, has had multiple episodes of DKA - pt takes 20 U lantus at home in AM and follows ISS for meals Beta hydroxybutyrate >2 Procalcitonoin 7 UDS negative UA negative, did show >1000 glucose with large bilirubin HbA1c 9.6% Last BG 142 Plan: - fluids per DKA protocol have been dc received fluid bolus of 1 L in the ER and was given 50mEq of bicarb once IVF NS 200cc/hr K added to fluid once K<5.2 per protocol D5 1/2 NS when BG<250 - maintenance fluids 150cc/hr D5 in 0.45 NS - VS per nursing protocol - continue telemetry [facility] - continue to check bmp q4h - insulin drip d/c, given 20U SQ levemir this AM - plan to add 15 U levemir BID starting tonight - zofran prn nausea - FEN: NPO, IV fluids per protocol - dispo: close gap, move off floor, stabilize BG, to be d/c home after next BMP, will move to [address] [place] [address] floor if labs are ok, gap is closed, HCO3>18 (2) Pancreatitis Current Visit: Yes Status: Acute Assessment and Plan: Lipase 280 with evidence of pancreatitis on CT scan from admission - pt denies epigastric pain and tenderness Plan: - continue IVF - NPO (3) CARL (acute kidney injury) Current Visit: Yes Status: Resolved Assessment and Plan: Resolved. Was likely pre-renal in the setting of DKA and dehydration. Admission creatinine 1.23, improved to 0.96 with IVF. Renal ultrasound pending. CT scan negative for hydronephrosis. (4) Acute encephalopathy Current Visit: Yes Status: Acute Assessment and Plan: Likely secondary to DKA and hyperosmolality. CT head negative. Fall, seizure, aspiration precautions. (5) Lactic acidosis Current Visit: Yes Status: Resolved Assessment and Plan: Elevated on admission, now 1.8, was likely secondary to severe dehydration and DKA. (6) Hypothyroidism Current Visit: Yes Status: Acute Assessment and Plan: con't synthroid (7) DVT prophylaxis Current Visit: Yes Status: Acute Assessment and Plan: sq heparin (8) Leukocytosis Current Visit: Yes Status: Acute Assessment and Plan: Most likely secondary to DKA and severe dehydration vs pancreatitis - Chest x-ray negative low lung volume study - UA: Negative for UTI - CT chestabd+pelvis negative for PNA (+) for inflammatory changes around pancreatitis; colonic wall thickening - pro-calcitonin 7.51 Plan: - d/c vancomycin - continuezosyn day 2 - blood cx pending - stool panel pending (9) Colitis Current Visit: Yes Status: Suspected Assessment and Plan: Suspected. See above for leukocytosis. DVT Prophylaxis: sq heparin - Time Spent with Patient Total time spent is greater than 50% in coordination of care (as documented) at patient's floor/unit and/or counseling patient: less than 15 minutes Plan of Care Discussed with: nurse Internal Medicine: Result - Labs CBC & Chem 7: 07/01/18 04:00 07/01/18 08:32 Labs: Short CBC 06/30/18 07/01/18 Range/Units 07:57 04:00 WBC 25.7 H 7.9 D (4.3-11.1) K/mcL Hgb 12.4 9.9 L D (11.5-15.4) g/dL Hct 41.6 30.0 L (35.3-44.9) % Plt Count 282 154 (140-400) K/mcL Neutrophils # 22.6 H (1.6-8.9) K/mcL BMP 06/30/18 06/30/18 06/30/18 07:26 09:34 12:55 Sodium 135 L 136 139 Potassium 4.7 4.3 5.0 Chloride 97 L 103 110 H Carbon Dioxide 4 L* 5 L* 13 L BUN 32 H 30 H 27 H Creatinine 1.58 H 1.64 H 1.23 H Glucose 839 H* 518 H* 377 H Calcium 9.1 9.1 7.9 L 06/30/18 06/30/18 06/30/18 15:23 20:15 23:14 Sodium 141 142 144 Potassium 4.2 4.0 3.6 Chloride 110 H 116 H 119 H Carbon Dioxide 9 L* 13 L 17 L BUN 29 H 25 H 22 H Creatinine 1.27 H 1.16 1.00 Glucose 359 H 288 H 108 H Calcium 7.9 L 7.8 L 7.4 L 07/01/18 04:00 Sodium 143 Potassium 4.0 Chloride 118 H Carbon Dioxide 15 L BUN 20 Creatinine 0.91 Glucose 358 H Calcium 7.5 L Liver Function 07/01/18 Range/Units 04:00 Total Bilirubin 0.3 (0.3-1.0) mg/dL Direct Bilirubin 0.1 (0.0-0.2) mg/dL AST 54 H (13-39) Units/L ALT 32 (7-52) Units/L Alkaline Phosphatase 151 H (34-104) Units/L Albumin 2.7 L (3.5-5.7) g/dL - ABG Interpretation ABG results: ABG ABG pH 7.36 pH Units (7.32-7.45) 07/01/18 00:04 ABG pCO2 30 mmHg (35-45) L 07/01/18 00:04 ABG pO2 99 mmHg (85-104) 07/01/18 00:04 ABG O2 Saturation 98 % (95-98) 07/01/18 00:04 - Impressions Impressions Chest X-Ray 06/30/18 05:06 IMPRESSION: Negative low lung volume study D/ / Chapincito Walker MD / Chapincito Walker MD Interpreting Provider: Chapincito Walker MD Head CT 06/30/18 05:08 IMPRESSION: No acute intracranial abnormality. Mild paranasal sinus disease D/ / Chapincito Walker MD / Chapincito Walker MD Interpreting Provider: Chapincito Walekr MD Abdomen/Pelvis CT 06/30/18 21:00 IMPRESSION: Mild mosaic attenuation at the lung bases suggesting small airways disease or air trapping. No pneumonia. Inflammatory changes seen surrounding the pancreas suggesting pancreatitis. Scattered areas of colonic wall thickening are seen, likely due to the contracted state of the colon in the absence of clinical signs of colitis. Trace free fluid in the pelvis. D/ / Chapincito Walker MD / Chapincito Walker MD Interpreting Provider: Chapincito Walker MD Chest CT 06/30/18 21:00 IMPRESSION: Mild mosaic attenuation at the lung bases suggesting small airways disease or air trapping. No pneumonia. Inflammatory changes seen surrounding the pancreas suggesting pancreatitis. Scattered areas of colonic wall thickening are seen, likely due to the contracted state of the colon in the absence of clinical signs of colitis. Trace free fluid in the pelvis. D/ / Chapincito Walker MD / Chapincito Walker MD Interpreting Provider: Chapincito Walker MD Consult Discharge Plan - Plan Referrals: NONE,PCP [Primary Care Provider] - <Christine Echavarria - Last Filed: 07/01/18 13:18> Hospitalist Progress Note - Encounter Date of Encounter: 07/01/18 - Exam Vitals: Temp Pulse Resp BP Pulse Ox 98.6 F 97 19 120/60 97 07/01/18 11:30 07/01/18 12:00 07/01/18 12:00 07/01/18 12:00 07/01/18 12:00 - Assessment and Plan (1) DKA (diabetic ketoacidoses) Current Visit: Yes Status: Acute (2) Leukocytosis Current Visit: Yes Status: Acute (3) Acute encephalopathy Current Visit: Yes Status: Acute (4) DM w/ hyperosmolarity Current Visit: Yes Status: Acute (5) Lactic acidosis Current Visit: Yes Status: Resolved (6) Hypothyroidism Current Visit: Yes Status: Acute (7) DVT prophylaxis Current Visit: Yes Status: Acute (8) Acute renal failure (ARF) Current Visit: Yes Status: Acute - Time Spent with Patient Total time spent is greater than 50% in coordination of care (as documented) at patient's floor/unit and/or counseling patient: Internal Medicine: Result - Labs CBC & Chem 7: 07/01/18 04:00 07/01/18 12:34 Labs: Short CBC 07/01/18 Range/Units 04:00 WBC 7.9 D (4.3-11.1) K/mcL Hgb 9.9 L D (11.5-15.4) g/dL Hct 30.0 L (35.3-44.9) % Plt Count 154 (140-400) K/mcL BMP 06/30/18 06/30/18 06/30/18 12:55 15:23 20:15 Sodium 139 141 142 Potassium 5.0 4.2 4.0 Chloride 110 H 110 H 116 H Carbon Dioxide 13 L 9 L* 13 L BUN 27 H 29 H 25 H Creatinine 1.23 H 1.27 H 1.16 Glucose 377 H 359 H 288 H Calcium 7.9 L 7.9 L 7.8 L 06/30/18 07/01/18 07/01/18 23:14 04:00 08:32 Sodium 144 143 148 H Potassium 3.6 4.0 3.3 L Chloride 119 H 118 H 119 H Carbon Dioxide 17 L 15 L 15 L BUN 22 H 20 20 Creatinine 1.00 0.91 0.96 Glucose 108 H 358 H 158 H Calcium 7.4 L 7.5 L 7.5 L Liver Function 07/01/18 Range/Units 04:00 Total Bilirubin 0.3 (0.3-1.0) mg/dL Direct Bilirubin 0.1 (0.0-0.2) mg/dL AST 54 H (13-39) Units/L ALT 32 (7-52) Units/L Alkaline Phosphatase 151 H (34-104) Units/L Albumin 2.7 L (3.5-5.7) g/dL - ABG Interpretation ABG results: ABG ABG pH 7.36 pH Units (7.32-7.45) 07/01/18 00:04 ABG pCO2 30 mmHg (35-45) L 07/01/18 00:04 ABG pO2 99 mmHg (85-104) 07/01/18 00:04 ABG O2 Saturation 98 % (95-98) 07/01/18 00:04 - Impressions Impressions Abdomen/Pelvis CT 06/30/18 21:00 IMPRESSION: Mild mosaic attenuation at the lung bases suggesting small airways disease or air trapping. No pneumonia. Inflammatory changes seen surrounding the pancreas suggesting pancreatitis. Scattered areas of colonic wall thickening are seen, likely due to the contracted state of the colon in the absence of clinical signs of colitis. Trace free fluid in the pelvis. D/ / Chapincito Walker MD / Chapincito Walker MD Interpreting Provider: Chapincito Walker MD Chest CT 06/30/18 21:00 IMPRESSION: Mild mosaic attenuation at the lung bases suggesting small airways disease or air trapping. No pneumonia. Inflammatory changes seen surrounding the pancreas suggesting pancreatitis. Scattered areas of colonic wall thickening are seen, likely due to the contracted state of the colon in the absence of clinical signs of colitis. Trace free fluid in the pelvis. D/ / Chapincito Walker MD / Chapincito Walker MD Interpreting Provider: Chapincito Walker MD - Attending Attestation I examined this patient and my medical decision-making was reviewed with the Resident Physician Dr Mohamud. I agree with the documented findings, disposition and treatment plan as described except to the extent set forth below. Ms Shay is admitted for DKA. awake, pleasant, no confusion or lethargy today. she denies fevers, though notes chills. no abd pain, continued diarrhea. She believes she first noted it yesterday morning. no associated n/v. No blood in diarrhea. Denies any cough, congestion, sob. No rashes. Denies dysuria, or change in freq of urination and denies bladder pain. Insists she is always compliant with her insulin regimen. gen- alert, awake,appears stated age eyes- pupils equal round cv- reg rate and rhythm, normal s1,s2, no murmurs appreciated, no le edema lungs- ctabl, no wheezing, rhonchi or crackles, normal resp effort on room air abd- soft, non tender, non distended, + bs, rectal tube with about 200cc brown loose neuro- AAOx3, CN grossly intact, no focal deficits DKA Possible non compliance, cannot rule out infectious precipitating factor Uncontrolled DM, A1C 9.6 Gap closed early this morning and she was started on sliding scale but no basal insulin given Morning BMP with gap 14, blood sugars upper 300s by morning when our team came on -cont IVFs, npo, serial bmps, levemir 20 units given based off insulin gtt requirements, will monitor bmps and glucose throughout day, tentative plan to begin BID levemir this evening Sepsis with HR >90, elevated lactate and WBC in 20s Elevated procalcitonin While some of these findings were likely related to DKA infectious work up shows CT evidence of pancreatitis and possible colitis -cont IVFs, lactate now normal, dc vanc and cont zosyn given suspected gi source -c diff neg, send full stool culture Colitis- treatment/ work up as above Pancreatitis- npo, IVFs, trend lipase CARL prerenal 2/2 dehydration- resolved with ivfs Hypothyroidism- tsh low but free t3 and t4 wnl-cont home med, and rec for outpt repeat level when not in acutely ill setting for possible dosing adjustment further diagnoses and plan as noted by resident <Mendez Mohamud S - Last Filed: 07/01/18 11:55> (1) DKA (diabetic ketoacidoses) Qualifiers: Diabetes mellitus type: type 2 Diabetes mellitus complication detail: without coma Qualified Code(s): E11.10 - Type 2 diabetes mellitus with ketoacidosis without coma (2) Pancreatitis Qualifiers: Chronicity: acute Pancreatitis type: unspecified pancreatitis type Acute pancreatitis complication: unspecified Qualified Code(s): K85.90 - Acute pancreatitis without necrosis or infection, unspecified (6) Hypothyroidism Qualifiers: Hypothyroidism type: acquired Qualified Code(s): E03.9 - Hypothyroidism, unspecified (8) Leukocytosis Qualifiers: Leukocytosis type: unspecified Qualified Code(s): D72.829 - Elevated white blood cell count, unspecified <Christine Echavarria M - Last Filed: 07/01/18 13:18> (1) DKA (diabetic ketoacidoses) Qualifiers: Diabetes mellitus type: type 2 Diabetes mellitus complication detail: without coma Qualified Code(s): E11.10 - Type 2 diabetes mellitus with ketoacidosis without coma (2) Leukocytosis Qualifiers: Leukocytosis type: unspecified Qualified Code(s): D72.829 - Elevated white blood cell count, unspecified (6) Hypothyroidism Qualifiers: Hypothyroidism type: acquired Qualified Code(s): E03.9 - Hypothyroidism, unspecified (8) Acute renal failure (ARF) Qualifiers: Acute renal failure type: unspecified Qualified Code(s): N17.9 - Acute kidney failure, unspecified
[2018-07-01] MEDS ORDERED: Insulin DETEMIR 100 UNIT/ML X5UNITS SQ ONE (07:37)
[2018-07-01] MEDS ORDERED: Insulin LISPRO 300 UNITS/3 ML VIAL SQ SCH (07:38)
[2018-07-01] MEDS: Piperacillin/Tazobactam 3.375 GM in 0.9 % Sodium Chloride Mini Bag 100 ML IVPB SCH ×3 (08:34→22:57)
[2018-07-01] MEDS: Gabapentin 400 MG CAPSULE PO SCH ×3 (08:38→20:39)
[2018-07-01] MEDS: Famotidine 20 MG TABLET PO SCH ×2 (08:38→20:39)
[2018-07-01] MEDS ORDERED: D5% in 0.45% NACL 1,000 ML IVC SCH (08:45)
[2018-07-01] MEDS ORDERED: Folic Acid 1 MG TABLET PO SCH (09:00)
[2018-07-01] MEDS ORDERED: Aspirin 81 MG TAB.CHEW PO SCH (09:00)
[2018-07-01 09:05] LABS: BUN/Creatinine Ratio 21 (6-26); Blood Urea Nitrogen 20 mg/dL (6-20); Calcium 7.5 mg/dL (8.6-10.3); Carbon Dioxide 15 mEq/L (23-29); Chloride 119 mEq/L (98-107); Glucose 158 mg/dL (70-105); Magnesium 1.6 mg/dL (1.6-2.6); Osmolality,Calculated 312 (280-300); Potassium 3.3 mEq/L (3.5-5.1); Sodium 148 mEq/L (136-145); eGFR For Non-African Americans > 60 (> 60)
[2018-07-01] MEDS ORDERED: D5% in 0.45% NACL 1,000 ML IVC PRN (09:39)
[2018-07-01] MEDS ORDERED: D5% in 0.45% NACL w KCl 20 MEQ/1,000 ML MLS IVC PRN (09:39)
[2018-07-01] MEDS ORDERED: 0.45 % Sodium Chloride w/KCl 20 MEQ/1,000 ML MLS IVC SCH (09:45)
[2018-07-01] MEDS ORDERED: Potassium Chloride Elixir 20 MEQ/15 ML UDC PO ONE (10:07)
[2018-07-01] MEDS: D5% in 0.45% NACL 1,000 ML IVC SCH ×4 (11:25→23:52)
[2018-07-01 13:15] LABS: BUN/Creatinine Ratio 20 (6-26); Blood Urea Nitrogen 17 mg/dL (6-20); Calcium 7.3 mg/dL (8.6-10.3); Carbon Dioxide 17 mEq/L (23-29); Chloride 120 mEq/L (98-107); Glucose 203 mg/dL (70-105); Magnesium 1.6 mg/dL (1.6-2.6); Osmolality,Calculated 307 (280-300); Phosphorous 2.2 mg/dL (2.7-4.5); Potassium 4.1 mEq/L (3.5-5.1); Sodium 145 mEq/L (136-145); eGFR For Non-African Americans > 60 (> 60)
[2018-07-01] MEDS ORDERED: *HR* LORazepam 2 MG/ML VIAL IVP PRN ×6 (14:07→16:57)
[2018-07-01] MEDS ORDERED: Potassium Phosphate 44 MEQ in 0.9 % Sodium Chloride 250 ML IVPB ONE (14:09)
[2018-07-01 16:00] LABS: VBG HCO3 17 mEq/L (21-27); VBG PCO2 35 mmHg (41-51); VBG PO2 110 mmHg (25-50)
[2018-07-01 16:14] LABS: Adenovirus F 40/41 PCR Not detected (Not detect); Astrovirus PCR Not detected (Not detect); C.difficile Toxin A/B Gene PCR Not detected (Not detect); Campylobacter by PCR Not detected (Not detect); Cryptosporidium by PCR Not detected (Not detect); Cyclospora cayetanensis PCR Not detected (Not detect); E. coli O157 by PCR Not detected (Not detect); Entamoeba histolytica PCR Not detected (Not detect); Enteroaggregative E.coli(EAEC) Not detected (Not detect); Enteropathogenic E.coli(EPEC) Not detected (Not detect); Enterotoxigenic E.coli (ETEC) Not detected (Not detect); Giardia lamblia PCR Not detected (Not detect); Norovirus GI/GII PCR Not detected (Not detect); Plesiomonas shigelloides PCR Not detected (Not detect); Rotavirus A PCR Not detected (Not detect); Salmonella PCR Not detected (Not detect); Sapovirus PCR Not detected (Not detect); Shig/EnteroinvasiveE coli EIEC Not detected (Not detect); Shigalike tox-prod E coli STEC Not detected (Not detect); Vibrio PCR Not detected (Not detect); Vibrio cholerae PCR Not detected (Not detect); Yersinia enterocolitica PCR Not detected (Not detect)
[2018-07-01 16:14] LABS: BUN/Creatinine Ratio 19 (6-26); Blood Urea Nitrogen 15 mg/dL (6-20); Calcium 7.5 mg/dL (8.6-10.3); Carbon Dioxide 20 mEq/L (23-29); Chloride 119 mEq/L (98-107); Glucose 129 mg/dL (70-105); Osmolality,Calculated 307 (280-300); Potassium 3.7 mEq/L (3.5-5.1); Sodium 147 mEq/L (136-145); eGFR For Non-African Americans > 60 (> 60)
[2018-07-01] MEDS ORDERED: *HR* HYDROcodone/Acet 5/325 mg TABLET PO PRN (16:57)
[2018-07-01] MEDS ORDERED: Naloxone 0.4 MG/ML INJ IVP PRN (16:57)
[2018-07-01] MEDS ORDERED: Ondansetron 4 MG/2 ML VIAL IVP PRN (16:57)
[2018-07-01 20:52] LABS: BUN/Creatinine Ratio 17 (6-26); Blood Urea Nitrogen 13 mg/dL (6-20); Calcium 7.6 mg/dL (8.6-10.3); Carbon Dioxide 20 mEq/L (23-29); Chloride 117 mEq/L (98-107); Glucose 118 mg/dL (70-105); Osmolality,Calculated 301 (280-300); Potassium 3.8 mEq/L (3.5-5.1); Sodium 145 mEq/L (136-145); eGFR For Non-African Americans > 60 (> 60)
[2018-07-01] MEDS ORDERED: Insulin DETEMIR 100 UNIT/ML X5UNITS SQ SCH (21:00)
[2018-07-01] MEDS: Insulin DETEMIR 100 UNIT/ML X5UNITS SQ SCH (21:17)
[2018-07-02] MEDS: Insulin LISPRO 300 UNITS/3 ML VIAL SQ SCH ×5 (04:47→19:49)
[2018-07-02] MEDS: D5% in 0.45% NACL 1,000 ML IVC SCH ×3 (05:44→13:46)
[2018-07-02] MEDS: *HR* Heparin 5,000 UNIT/ML VIAL SQ SCH ×3 (05:49→20:24)
--- NOTE | 2018-07-02 07:58 | Internal Med Progress Note ---
<Christine Echavarria - Last Filed: 07/02/18 10:09> Hospitalist Progress Note - Encounter Date of Encounter: 07/02/18 - Exam Vitals: Temp Pulse Resp BP Pulse Ox 98.1 F 70 18 138/88 99 07/02/18 07:18 07/02/18 08:00 07/02/18 07:18 07/02/18 07:18 07/02/18 07:18 - Assessment and Plan (1) DKA (diabetic ketoacidoses) Current Visit: Yes Status: Acute (2) Leukocytosis Current Visit: Yes Status: Acute (3) Acute encephalopathy Current Visit: Yes Status: Resolved (4) DM w/ hyperosmolarity Current Visit: Yes Status: Acute (5) Lactic acidosis Current Visit: Yes Status: Resolved (6) Hypothyroidism Current Visit: Yes Status: Acute (7) DVT prophylaxis Current Visit: Yes Status: Acute (8) Acute renal failure (ARF) Current Visit: Yes Status: Acute - Time Spent with Patient Total time spent is greater than 50% in coordination of care (as documented) at patient's floor/unit and/or counseling patient: Internal Medicine: Result - Labs CBC & Chem 7: 07/02/18 08:39 07/02/18 07:29 Labs: Short CBC 07/02/18 Range/Units 08:39 WBC 4.5 (4.3-11.1) K/mcL Hgb 9.6 L (11.5-15.4) g/dL Hct 29.3 L (35.3-44.9) % Plt Count 123 L (140-400) K/mcL Neutrophils # 2.3 (1.6-8.9) K/mcL BMP 07/01/18 07/01/18 07/01/18 12:34 15:40 20:13 Sodium 145 147 H 145 Potassium 4.1 3.7 3.8 Chloride 120 H 119 H 117 H Carbon Dioxide 17 L 20 L 20 L BUN 17 15 13 Creatinine 0.87 0.79 0.76 Glucose 203 H 129 H 118 H Calcium 7.3 L 7.5 L 7.6 L 07/02/18 07:29 Sodium 141 Potassium 3.3 L Chloride 117 H Carbon Dioxide 18 L BUN 11 Creatinine 0.60 Glucose 103 Calcium 7.7 L - ABG Interpretation ABG results: ABG ABG pH 7.36 pH Units (7.32-7.45) 07/01/18 00:04 ABG pCO2 30 mmHg (35-45) L 07/01/18 00:04 ABG pO2 99 mmHg (85-104) 07/01/18 00:04 ABG O2 Saturation 98 % (95-98) 07/01/18 00:04 Consult Discharge Plan - Plan Referrals: Sunday Mcneil MD [Non-Partnered Physician] - 07/14/18 1:45 pm - Attending Attestation I examined this patient and my medical decision-making was reviewed with the Resident Physician Dr Mohamud. I agree with the documented findings, disposition and treatment plan as described except to the extent set forth below. Ms Shay is admitted for DKA. awake, pleasant, feeling muc h better. improved energy. no fevers, chills, abd pain, n/v. hungry. diarrhea slowing down. gen- alert, awake,appears stated age cv- reg rate and rhythm, normal s1,s2, lungs- ctabl, no wheezing, rhonchi or crackles, normal resp effort on room air abd- soft, non tender, non distended, + bs, neuro- AAOx3 DKA Possible non compliance, have not identified infection Uncontrolled DM, A1C 9.6 Gap remains closed hypoglycemia 5/3 am, resolved with oral intake -advance diet to clears pending lipase result, BID levemir and will adjust HS dose for tonight, prn hypoglycemics Sepsis with HR >90, elevated lactate and WBC in 20s, now suspected to have been related to DKA, and pancreatitis, and possible colitis resolved CT evidence of pancreatitis and possible colitis -decrease IVFs pending lipase result, cont zosyn given suspected gi source -c diff neg,stool cx negative Colitis- treatment/ work up as above Pancreatitis- advance to clears and decrease IVFs, pending am lipase result, trend lipase Hypothyroidism- tsh low but free t3 and t4 wnl-cont home med T3, home synthroid dose 400 mcg?, will confirm with pharmacy, and rec for outpt repeat level when not in acutely ill setting for possible dosing adjustment further diagnoses and plan as noted by resident <Mendez Mohamud - Last Filed: 07/02/18 11:30> Hospitalist Progress Note - Encounter Date of Encounter: 07/02/18 Time of Encounter: 09:55 - Subjective Interval History: Pt seen at bedside. She is without complaint or concern. She denies epigastric abdominal pain, chest pain, N/V/D or SOB. - Exam Vitals: Temp Pulse Resp BP Pulse Ox 98.1 F 70 18 138/88 99 07/02/18 07:18 07/02/18 07:18 07/02/18 07:18 07/02/18 07:18 07/02/18 07:18 Exam: General: Patient is alert, oriented, in no distress, Head: atraumatic, normocephalic, Eye: normal appearance, PERRL, no scleral icterus, no conjunctival injection ENT: mucous membranes extremely dry, Neck: normal inspection, trachea midline, full ROM, Chest: normal inspection, symmetric chest rise Respiratory: Good respiratory effort. Bilateral breath sounds are clear without wheezing, crackles, or rhonchi. Cardiovascular: Tachycardic s1 and s2 No clicks, rubs, gallops, or murmors. Abdomen: Bowel sounds present normoactive x-4 quadrants. Abdomen is soft, nondistended. no Epigastric tenderness. No guarding or rebound. No organomeg love noted, obese musculoskeletal: Spontaneously moving all extremities. no edema, no calf tenderness, no ulcers bilateral feet Skin: warm, dry, intact. Neuro: Alert and oriented x3, no focal deficits Psych: Patient's affect is normal - Assessment and Plan (1) DKA (diabetic ketoacidoses) Current Visit: Yes Status: Acute Assessment and Plan: DKA most likely secondary to compliance vs infectious vs pancreatitis - pt was admitted to the ICU on 06/30/18, has had multiple episodes of DKA - pt takes 20 U lantus at home in AM and follows ISS for meals Beta hydroxybutyrate >2 Procalcitonoin 7 UDS negative UA negative, did show >1000 glucose with large bilirubin HbA1c 9.6% Plan: - fluids per DKA protocol have been dc - maintenance fluids 200cc/hr D5 in 0.45 NS decreased to 125cc - VS per nursing protocol - continue telemetry montiroing - 15U levemir given this AM, will plan to calculate sliding scale dose for insulin AM hold levemir tonight , pt had hypoglycemic event overnight - zofran prn nausea - FEN: NPO, IV fluids as above - dispo: improvement of pancreatitis, continue IVF, correction of electrolyte abnomralities; will be home-going (2) Pancreatitis Current Visit: Yes Status: Acute Assessment and Plan: Lipase 280 with evidence of pancreatitis on CT scan from admission - pt denies epigastric pain and tenderness Plan: - continue IVF decreased to 125cc as above - NPO, plan to CLD today (3) CARL (acute kidney injury) Current Visit: Yes Status: Resolved Assessment and Plan: Resolved. Was likely pre-renal in the setting of DKA and dehydration. Admission creatinine 1.23, improved to 0.[address] scan negative for hydronephrosis. (4) Acute encephalopathy Current Visit: Yes Status: Resolved Assessment and Plan: Resolved. Likely secondary to DKA and hyperosmolality. CT head negative. Fall, seizure, aspiration precautions. (5) Lactic acidosis Current Visit: Yes Status: Resolved Assessment and Plan: Elevated on admission, now 1.8, was likely secondary to severe dehydration and DKA. (6) Hypothyroidism Current Visit: Yes Status: Acute Assessment and Plan: con't synthroid (7) DVT prophylaxis Current Visit: Yes Status: Acute Assessment and Plan: sq heparin (8) Leukocytosis Current Visit: Yes Status: Acute Assessment and Plan: Most likely secondary to DKA and severe dehydration vs pancreatitis - Chest x-ray negative low lung volume study - UA: Negative for UTI - CT chestabd+pelvis negative for PNA (+) for inflammatory changes around pancreatitis; colonic wall thickening - pro-calcitonin 7.51 - stool panel negative Plan: - d/c vancomycin - continuezosyn day 3 - blood cx pending (9) Colitis Current Visit: Yes Status: Suspected Assessment and Plan: Suspected. See above for leukocytosis. DVT Prophylaxis: sq heparin - Time Spent with Patient Total time spent is greater than 50% in coordination of care (as documented) at patient's floor/unit and/or counseling patient: less than 15 minutes Plan of Care Discussed with: patient Internal Medicine: Result - Labs CBC & Chem 7: 07/02/18 08:39 07/02/18 07:29 Labs: BMP 07/01/18 07/01/18 07/01/18 08:32 12:34 15:40 Sodium 148 H 145 147 H Potassium 3.3 L 4.1 3.7 Chloride 119 H 120 H 119 H Carbon Dioxide 15 L 17 L 20 L BUN 20 17 15 Creatinine 0.96 0.87 0.79 Glucose 158 H 203 H 129 H Calcium 7.5 L 7.3 L 7.5 L 07/01/18 20:13 Sodium 145 Potassium 3.8 Chloride 117 H Carbon Dioxide 20 L BUN 13 Creatinine 0.76 Glucose 118 H Calcium 7.6 L - ABG Interpretation ABG results: ABG ABG pH 7.36 pH Units (7.32-7.45) 07/01/18 00:04 ABG pCO2 30 mmHg (35-45) L 07/01/18 00:04 ABG pO2 99 mmHg (85-104) 07/01/18 00:04 ABG O2 Saturation 98 % (95-98) 07/01/18 00:04 <Christine Echavarria M - Last Filed: 07/02/18 10:09> (1) DKA (diabetic ketoacidoses) Qualifiers: Diabetes mellitus type: type 2 Diabetes mellitus complication detail: without coma Qualified Code(s): E11.10 - Type 2 diabetes mellitus with ketoacidosis without coma (2) Leukocytosis Qualifiers: Leukocytosis type: unspecified Qualified Code(s): D72.829 - Elevated white blood cell count, unspecified (6) Hypothyroidism Qualifiers: Hypothyroidism type: acquired Qualified Code(s): E03.9 - Hypothyroidism, unspecified (8) Acute renal failure (ARF) Qualifiers: Acute renal failure type: unspecified Qualified Code(s): N17.9 - Acute kidney failure, unspecified <Mendez Mohamud S - Last Filed: 07/02/18 11:30> (1) DKA (diabetic ketoacidoses) Qualifiers: Diabetes mellitus type: type 2 Diabetes mellitus complication detail: without coma Qualified Code(s): E11.10 - Type 2 diabetes mellitus with ketoacidosis without coma (2) Pancreatitis Qualifiers: Chronicity: acute Pancreatitis type: unspecified pancreatitis type Acute pancreatitis complication: unspecified Qualified Code(s): K85.90 - Acute pancreatitis without necrosis or infection, unspecified (6) Hypothyroidism Qualifiers: Hypothyroidism type: acquired Qualified Code(s): E03.9 - Hypothyroidism, unspecified (8) Leukocytosis Qualifiers: Leukocytosis type: unspecified Qualified Code(s): D72.829 - Elevated white blood cell count, unspecified
[2018-07-02 08:05] LABS: BUN/Creatinine Ratio 18 (6-26); Blood Urea Nitrogen 11 mg/dL (6-20); Calcium 7.7 mg/dL (8.6-10.3); Carbon Dioxide 18 mEq/L (23-29); Chloride 117 mEq/L (98-107); Glucose 103 mg/dL (70-105); Osmolality,Calculated 292 (280-300); Potassium 3.3 mEq/L (3.5-5.1); Sodium 141 mEq/L (136-145); eGFR For Non-African Americans > 60 (> 60)
[2018-07-02 08:22] LABS: Phosphorous 2.6 mg/dL (2.7-4.5)
[2018-07-02] MEDS: Gabapentin 400 MG CAPSULE PO SCH ×3 (08:24→20:24)
[2018-07-02] MEDS: Famotidine 20 MG TABLET PO SCH ×2 (08:24→20:24)
[2018-07-02] MEDS: Aspirin 81 MG TAB.CHEW PO SCH (08:25)
[2018-07-02] MEDS: Piperacillin/Tazobactam 3.375 GM in 0.9 % Sodium Chloride Mini Bag 100 ML IVPB SCH ×2 (08:25→16:57)
[2018-07-02] MEDS: Folic Acid 1 MG TABLET PO SCH (08:25)
[2018-07-02] MEDS: Insulin DETEMIR 100 UNIT/ML X5UNITS SQ SCH (08:40)
[2018-07-02] MEDS ORDERED: Potassium Phosphate 44 MEQ in 0.9 % Sodium Chloride 250 ML IVPB ONE (08:42)
[2018-07-02] MEDS ORDERED: Potassium Chloride Elixir 20 MEQ/15 ML UDC PO ONE (08:42)
[2018-07-02 08:52] LABS: Basophils % 0.7 %; Eosinophils # 0.2 K/mcL (0.0-0.6); Eosinophils % 3.3 %; Hematocrit 29.3 % (35.3-44.9); Hemoglobin 9.6 g/dL (11.5-15.4); Immature Granulocytes % 0.2 % (0-4); Lymphocytes # 1.7 K/mcL (0.6-4.6); Lymphocytes % 36.7 %; Mean Corpuscular HGB Conc 32.8 g/dL (31.6-35.5); Mean Corpuscular Volume 103.9 fL (83.0-100.0); Mean Platelet Volume 10.8 fL (9.4-12.4); Monocytes # 0.4 K/mcL (0.0-1.3); Monocytes % 8.4 %; Neutrophils # 2.3 K/mcL (1.6-8.9); Platelet Count 123 K/mcL (140-400); Red Blood Count 2.82 M/mcL (3.82-4.97); Red Cell Distribution Width 12.5 % (11.5-14.5); Segmented Neutrophils % 50.7 %
[2018-07-02] MEDS ORDERED: LEVOTHYROXINE SODIUM PO SCH (09:00)
[2018-07-02 18:39] LABS: BUN/Creatinine Ratio 14 (6-26); Blood Urea Nitrogen 8 mg/dL (6-20); Calcium 8.1 mg/dL (8.6-10.3); Carbon Dioxide 18 mEq/L (23-29); Chloride 115 mEq/L (98-107); Glucose 65 mg/dL (70-105); Osmolality,Calculated 286 (280-300); Potassium 4.1 mEq/L (3.5-5.1); Sodium 140 mEq/L (136-145); eGFR For Non-African Americans > 60 (> 60)
[2018-07-02 22:25] LABS: Hematocrit RBC Folate 28.8 %
[2018-07-03] MEDS: Insulin LISPRO 300 UNITS/3 ML VIAL SQ SCH ×7 (00:32→23:48)
[2018-07-03] MEDS: Piperacillin/Tazobactam 3.375 GM in 0.9 % Sodium Chloride Mini Bag 100 ML IVPB SCH ×4 (00:32→23:32)
[2018-07-03] MEDS: *HR* Heparin 5,000 UNIT/ML VIAL SQ SCH (05:39)
[2018-07-03] MEDS: D5% in 0.45% NACL 1,000 ML IVC SCH ×3 (07:01→20:43)
[2018-07-03] MEDS: Gabapentin 400 MG CAPSULE PO SCH ×3 (08:42→20:42)
[2018-07-03] MEDS: Famotidine 20 MG TABLET PO SCH ×2 (08:42→20:42)
[2018-07-03] MEDS: Folic Acid 1 MG TABLET PO SCH (08:43)
[2018-07-03] MEDS: Aspirin 81 MG TAB.CHEW PO SCH (08:43)
--- NOTE | 2018-07-03 08:49 | Internal Med Progress Note ---
<Mendez Mohamud S - Last Filed: 07/03/18 11:22> Hospitalist Progress Note - Encounter Date of Encounter: 07/03/18 Time of Encounter: 08:47 - Subjective Interval History: Pt seen at bedside. She is feeling much better. She is tolerating CLD. No acute complaints or concerns. - Exam Vitals: Temp Pulse Resp BP Pulse Ox 97.8 F 67 18 148/85 99 07/03/18 07:24 07/03/18 07:24 07/03/18 07:24 07/03/18 07:24 07/03/18 07:24 Exam: General: Patient is alert, oriented, in no distress, Head: atraumatic, normocephalic, Eye: normal appearance, PERRL, no scleral icterus, no conjunctival injection Neck: normal inspection, trachea midline, full ROM, Chest: normal inspection, symmetric chest rise Respiratory: Good respiratory effort. Bilateral breath sounds are clear without wheezing, crackles, or rhonchi. Cardiovascular: RRR s1 and s2 No clicks, rubs, gallops, or murmors. Abdomen: Bowel sounds present normoactive x-4 quadrants. Abdomen is soft, nondistended. no Epigastric tenderness. No guarding or rebound. No organomegaly noted, obese musculoskeletal: Spontaneously moving all extremities. no edema, no calf tenderness, no ulcers bilateral feet Skin: warm, dry, intact. Neuro: Alert and oriented x3, no focal deficits Psych: Patient's affect is normal - Assessment and Plan (1) DKA (diabetic ketoacidoses) Current Visit: Yes Status: Acute Assessment and Plan: DKA most likely secondary to compliance vs infectious vs pancreatitis - pt was admitted to the ICU on 06/30/18, has had multiple episodes of DKA - pt takes 20 U lantus at home in AM and follows ISS for meals Beta hydroxybutyrate >2 Procalcitonoin 7 UDS negative UA negative, did show >1000 glucose with large bilirubin HbA1c 9.6% Plan: - fluids per DKA protocol have been dc - maintenance fluids 75cc D5 in 1/2 NS - VS per nursing protocol - continue telemetry montiroing - 15 U levemir this AM, plan to calculate how much the pt needs for tomorrow this afternoon - zofran prn nausea - pt is on zosyn day 4 as detailed below; will plan on sending the pt on PO abx when discharged to complete for suspected colitis - FEN: advance to full liquid diet - dispo: advance diet, continue IVF, likely to be d/c in 1-2 days; will be home- going diabetic education will be set up for the pt on an outpatient basis (2) Pancreatitis Current Visit: Yes Status: Acute Assessment and Plan: Lipase 280 with evidence of pancreatitis on CT scan from admission ---> repeat lipase 58 - pt denies epigastric pain and tenderness Plan: - continue IVF 75cc as above - advance to full liquid diet (3) CARL (acute kidney injury) Current Visit: Yes Status: Resolved Assessment and Plan: Resolved. Was likely pre-renal in the setting of DKA and dehydration. Admission creatinine 1.23, improved to 0.[address] scan negative for hydronephrosis. (4) Acute encephalopathy Current Visit: Yes Status: Resolved Assessment and Plan: Resolved. Likely secondary to DKA and hyperosmolality. CT head negative. Fall, seizure, aspiration precautions. (5) Lactic acidosis Current Visit: Yes Status: Resolved Assessment and Plan: Elevated on admission, now 1.8, was likely secondary to severe dehydration and DKA. (6) Hypothyroidism Current Visit: Yes Status: Acute Assessment and Plan: con't synthroid (7) DVT prophylaxis Current Visit: Yes Status: Acute Assessment and Plan: sq heparin (8) Leukocytosis Current Visit: Yes Status: Acute Assessment and Plan: Most likely secondary to DKA and severe dehydration vs pancreatitis - Chest x-ray negative low lung volume study - UA: Negative for UTI - CT chestabd+pelvis negative for PNA (+) for inflammatory changes around pancreatitis; colonic wall thickening - pro-calcitonin 7.51 - stool panel negative Plan: - d/c vancomycin - continuezosyn day 4, plan to de-escalate and send home on oral abx - blood cx pending ngtd (9) Colitis Current Visit: Yes Status: Suspected Assessment and Plan: Suspected. See above for leukocytosis. DVT Prophylaxis: sq heparin - Time Spent with Patient Total time spent is greater than 50% in coordination of care (as documented) at patient's floor/unit and/or counseling patient: less than 15 minutes Plan of Care Discussed with: patient Internal Medicine: Result - Labs CBC & Chem 7: 07/03/18 09:02 07/03/18 09:02 Labs: Short CBC 07/02/18 Range/Units 08:39 WBC 4.5 (4.3-11.1) K/mcL Hgb 9.6 L (11.5-15.4) g/dL Hct 29.3 L (35.3-44.9) % Plt Count 123 L (140-400) K/mcL Neutrophils # 2.3 (1.6-8.9) K/mcL BMP 07/02/18 17:21 Sodium 140 Potassium 4.1 Chloride 115 H Carbon Dioxide 18 L BUN 8 Creatinine 0.56 L Glucose 65 L Calcium 8.1 L - ABG Interpretation ABG results: ABG ABG pH 7.36 pH Units (7.32-7.45) 07/01/18 00:04 ABG pCO2 30 mmHg (35-45) L 07/01/18 00:04 ABG pO2 99 mmHg (85-104) 07/01/18 00:04 ABG O2 Saturation 98 % (95-98) 07/01/18 00:04 Consult Discharge Plan - Plan Referrals: Sunday Mcneil MD [Non-Partnered Physician] - 07/14/18 1:45 pm <Christine Echavarria - Last Filed: 07/03/18 13:36> Hospitalist Progress Note - Encounter Date of Encounter: 07/03/18 - Exam Vitals: Temp Pulse Resp BP Pulse Ox 97.6 F 66 18 138/81 99 07/03/18 11:17 07/03/18 11:17 07/03/18 11:17 07/03/18 11:17 07/03/18 11:17 - Assessment and Plan (1) DKA (diabetic ketoacidoses) Current Visit: Yes Status: Acute (2) Leukocytosis Current Visit: Yes Status: Acute (3) Acute encephalopathy Current Visit: Yes Status: Resolved (4) DM w/ hyperosmolarity Current Visit: Yes Status: Acute (5) Lactic acidosis Current Visit: Yes Status: Resolved (6) Hypothyroidism Current Visit: Yes Status: Acute (7) DVT prophylaxis Current Visit: Yes Status: Acute (8) Acute renal failure (ARF) Current Visit: Yes Status: Acute - Time Spent with Patient Total time spent is greater than 50% in coordination of care (as documented) at patient's floor/unit and/or counseling patient: Internal Medicine: Result - Labs CBC & Chem 7: 07/03/18 09:02 07/03/18 09:02 Labs: Short CBC 07/03/18 Range/Units 09:02 WBC 3.3 L (4.3-11.1) K/mcL Hgb 9.5 L (11.5-15.4) g/dL Hct 28.7 L (35.3-44.9) % Plt Count 77 L (140-400) K/mcL BMP 07/02/18 07/03/18 17:21 09:02 Sodium 140 136 Potassium 4.1 4.4 Chloride 115 H 113 H Carbon Dioxide 18 L 16 L BUN 8 6 Creatinine 0.56 L 0.54 L Glucose 65 L 254 H Calcium 8.1 L 7.8 L - ABG Interpretation ABG results: ABG ABG pH 7.36 pH Units (7.32-7.45) 07/01/18 00:04 ABG pCO2 30 mmHg (35-45) L 07/01/18 00:04 ABG pO2 99 mmHg (85-104) 07/01/18 00:04 ABG O2 Saturation 98 % (95-98) 07/01/18 00:04 - Attending Attestation I examined this patient and my medical decision-making was reviewed with the Resident Physician Dr Mohamud. I agree with the documented findings, disposition and treatment plan as described except to the extent set forth below. Ms Shay is admitted for DKA. awake, tolerated liquids without any problem, no n/v/ad pain. diarrhea nearly resolved. no abd pain. denies fevers or chills gen- alert, awake,appears stated age cv- reg rate and rhythm, normal s1,s2, lungs- ctabl, normal resp effort on room air abd- soft, non tender, non distended, + bs, neuro- AAOx3 DKA, resolved Possible non compliance + infection Uncontrolled DM, A1C 9.6 Gap remains closed -advance diet to ADA fulls, cont daily levemir, will monitor ssi requirements today and adjust for next dose tomorrow Sepsis with HR >90, elevated lactate and WBC in 20s, now suspected to have been related to DKA, and pancreatitis, and possible colitis resolved CT evidence of pancreatitis and possible colitis -decrease IVFs cont zosyn given suspected gi source -c diff neg,stool cx negative Colitis- treatment/ work up as above Pancreatitis- advance to fulls, lipase nml, decrease ivfs, if sxs with intake will recheck lipase at that time Hypothyroidism- tsh low but free t3 and t4 wnl-cont home med T3, home synthroid dose 400 mcg after d/w pharmacy, rec for outpt repeat level when not in acutely ill setting for possible dosing adjustment Thrombocytopenia- no active bleeding, dc sqh and start scds for vte ppx, cont to monitor further diagnoses and plan as noted by resident <Mendez Mohamud S - Last Filed: 07/03/18 11:22> (1) DKA (diabetic ketoacidoses) Qualifiers: Diabetes mellitus type: type 2 Diabetes mellitus complication detail: without coma Qualified Code(s): E11.10 - Type 2 diabetes mellitus with ketoacidosis without coma (2) Pancreatitis Qualifiers: Chronicity: acute Pancreatitis type: unspecified pancreatitis type Acute pancreatitis complication: unspecified Qualified Code(s): K85.90 - Acute pancreatitis without necrosis or infection, unspecified (6) Hypothyroidism Qualifiers: Hypothyroidism type: acquired Qualified Code(s): E03.9 - Hypothyroidism, unspecified (8) Leukocytosis Qualifiers: Leukocytosis type: unspecified Qualified Code(s): D72.829 - Elevated white blood cell count, unspecified <Christine Echavarria M - Last Filed: 07/03/18 13:36> (1) DKA (diabetic ketoacidoses) Qualifiers: Diabetes mellitus type: type 2 Diabetes mellitus complication detail: without coma Qualified Code(s): E11.10 - Type 2 diabetes mellitus with ketoacidosis without coma (2) Leukocytosis Qualifiers: Leukocytosis type: unspecified Qualified Code(s): D72.829 - Elevated white blood cell count, unspecified (6) Hypothyroidism Qualifiers: Hypothyroidism type: acquired Qualified Code(s): E03.9 - Hypothyroidism, unspecified (8) Acute renal failure (ARF) Qualifiers: Acute renal failure type: unspecified Qualified Code(s): N17.9 - Acute kidney failure, unspecified
[2018-07-03] MEDS ORDERED: Insulin DETEMIR 100 UNIT/ML X5UNITS SQ ONE (09:00)
[2018-07-03 09:30] LABS: Hemoglobin 9.5 g/dL (11.5-15.4)
[2018-07-03 09:32] LABS: Hematocrit 28.7 % (35.3-44.9); Immature Platelets 9.9 % (1.1-6.1); Mean Corpuscular HGB Conc 33.1 g/dL (31.6-35.5); Mean Corpuscular Hemoglobin 33.7 pg (28.0-33.3); Mean Corpuscular Volume 101.8 fL (83.0-100.0); Mean Platelet Volume 11.7 fL (9.4-12.4); Red Blood Count 2.82 M/mcL (3.82-4.97)
[2018-07-03 09:42] LABS: BUN/Creatinine Ratio 11 (6-26); Blood Urea Nitrogen 6 mg/dL (6-20); Calcium 7.8 mg/dL (8.6-10.3); Carbon Dioxide 16 mEq/L (23-29); Chloride 113 mEq/L (98-107); Glucose 254 mg/dL (70-105); Magnesium 1.9 mg/dL (1.6-2.6); Osmolality,Calculated 288 (280-300); Phosphorous 2.8 mg/dL (2.7-4.5); Potassium 4.4 mEq/L (3.5-5.1); Sodium 136 mEq/L (136-145); eGFR For Non-African Americans > 60 (> 60)
[2018-07-03] MEDS ORDERED: D5% in 0.45% NACL 1,000 ML IVC SCH (10:25)
[2018-07-03] MEDS: 0.45 % Sodium Chloride w/KCl 20 MEQ/1,000 ML MLS IVC SCH ×3 (19:38→19:39)
[2018-07-03] MEDS: 0.9 % Sodium Chloride 1,000 ML IVC SCH ×2 (19:38→19:39)
[2018-07-03] MEDS: 0.9 % Sodium Chloride w KCl 20 MEQ/1,000 ML MLS IVC SCH (19:39)
[2018-07-03] MEDS ORDERED: Dextrose Gel 15 GM/37.5 ML TUBE PO PRN ×2 (20:04)
[2018-07-03] MEDS ORDERED: *HR* LORazepam 2 MG/ML VIAL IVP PRN ×3 (20:04)
[2018-07-03] MEDS ORDERED: Ondansetron 4 MG/2 ML VIAL IVP PRN (20:04)
[2018-07-03] MEDS ORDERED: *HR* Dextrose 50 % in Water (Syg) 50 ML SYRINGE IVP PRN (20:04)
[2018-07-03] MEDS ORDERED: D5% in Water 1,000 ML IVC PRN (20:04)
[2018-07-03] MEDS ORDERED: *HR* HYDROcodone/Acet 5/325 mg TABLET PO PRN (20:04)
[2018-07-03] MEDS ORDERED: Naloxone 0.4 MG/ML INJ IVP PRN (20:04)
[2018-07-04 03:05] LABS: Hematocrit 28.3 % (35.3-44.9); Hemoglobin 9.4 g/dL (11.5-15.4); Mean Corpuscular HGB Conc 33.2 g/dL (31.6-35.5); Mean Corpuscular Hemoglobin 33.9 pg (28.0-33.3); Mean Corpuscular Volume 102.2 fL (83.0-100.0); Mean Platelet Volume 11.6 fL (9.4-12.4); Platelet Count 115 K/mcL (140-400); Red Blood Count 2.77 M/mcL (3.82-4.97); Red Cell Distribution Width 11.9 % (11.5-14.5)
[2018-07-04] MEDS: D5% in 0.45% NACL 1,000 ML IVC SCH (03:07)
[2018-07-04 03:23] LABS: BUN/Creatinine Ratio 13 (6-26); Blood Urea Nitrogen 7 mg/dL (6-20); Calcium 8.3 mg/dL (8.6-10.3); Carbon Dioxide 20 mEq/L (23-29); Chloride 112 mEq/L (98-107); Glucose 158 mg/dL (70-105); Osmolality,Calculated 289 (280-300); Potassium 3.9 mEq/L (3.5-5.1); Sodium 139 mEq/L (136-145); eGFR For Non-African Americans > 60 (> 60)
[2018-07-04] MEDS: Insulin LISPRO 300 UNITS/3 ML VIAL SQ SCH ×6 (05:12→23:51)
[2018-07-04] MEDS: Gabapentin 400 MG CAPSULE PO SCH ×3 (08:53→21:24)
[2018-07-04] MEDS: Famotidine 20 MG TABLET PO SCH ×2 (08:54→21:24)
[2018-07-04] MEDS: Folic Acid 1 MG TABLET PO SCH (08:54)
[2018-07-04] MEDS: Aspirin 81 MG TAB.CHEW PO SCH (08:54)
[2018-07-04] MEDS: Piperacillin/Tazobactam 3.375 GM in 0.9 % Sodium Chloride Mini Bag 100 ML IVPB SCH ×3 (08:55→23:53)
[2018-07-04] MEDS ORDERED: Insulin DETEMIR 100 UNIT/ML X5UNITS SQ ONE (09:00)
--- NOTE | 2018-07-04 09:11 | Internal Med Progress Note ---
<Christine Echavarria - Last Filed: 07/04/18 11:20> Hospitalist Progress Note - Encounter Date of Encounter: 07/04/18 - Exam Vitals: Temp Pulse Resp BP Pulse Ox 97.9 F 75 15 127/84 100 07/04/18 10:10 07/04/18 10:10 07/04/18 10:10 07/04/18 10:10 07/04/18 10:10 - Assessment and Plan (1) DKA (diabetic ketoacidoses) Current Visit: Yes Status: Acute (2) Leukocytosis Current Visit: Yes Status: Acute (3) Acute encephalopathy Current Visit: Yes Status: Resolved (4) DM w/ hyperosmolarity Current Visit: Yes Status: Acute (5) Lactic acidosis Current Visit: Yes Status: Resolved (6) Hypothyroidism Current Visit: Yes Status: Acute (7) DVT prophylaxis Current Visit: Yes Status: Acute (8) Acute renal failure (ARF) Current Visit: Yes Status: Acute - Time Spent with Patient Total time spent is greater than 50% in coordination of care (as documented) at patient's floor/unit and/or counseling patient: Internal Medicine: Result - Labs CBC & Chem 7: 07/04/18 02:26 07/04/18 02:26 Labs: Short CBC 07/04/18 Range/Units 02:26 WBC 4.0 L (4.3-11.1) K/mcL Hgb 9.4 L (11.5-15.4) g/dL Hct 28.3 L (35.3-44.9) % Plt Count 115 L (140-400) K/mcL BMP 07/04/18 02:26 Sodium 139 Potassium 3.9 Chloride 112 H Carbon Dioxide 20 L BUN 7 Creatinine 0.55 L Glucose 158 H Calcium 8.3 L - ABG Interpretation ABG results: ABG ABG pH 7.36 pH Units (7.32-7.45) 07/01/18 00:04 ABG pCO2 30 mmHg (35-45) L 07/01/18 00:04 ABG pO2 99 mmHg (85-104) 07/01/18 00:04 ABG O2 Saturation 98 % (95-98) 07/01/18 00:04 Consult Discharge Plan - Plan Referrals: Sunday Mcneil MD [Non-Partnered Physician] - 07/14/18 1:45 pm - Attending Attestation I examined this patient and my medical decision-making was reviewed with the Resident Physician Dr Mohamud. I agree with the documented findings, disposition and treatment plan as described except to the extent set forth below. Ms Shay is admitted for DKA. awake, tolerated current diet, no n/v/ad pain. denies diarrhea. will notify staff of changes with regular diet gen- alert, awake,appears stated age cv- reg rate and rhythm, normal s1,s2, no le edema lungs- ctabl, normal resp effort on room air abd- soft, non tender, non distended, + bs, neuro- AAOx3 DKA, resolved Possible non compliance + infection Uncontrolled DM, A1C 9.6 Gap remains closed -advance diet to ADA regular, new dose levemir this am, monitor SSI requirements and will adjust as needed with full diet in am Sepsis with HR >90, elevated lactate and WBC in 20s, now suspected to have been related to DKA, and pancreatitis, and possible colitis resolved CT evidence of pancreatitis and possible colitis -stop ivfs, cont zosyn given suspected gi source -c diff neg,stool cx negative Colitis- treatment/ work up as above Pancreatitis- advance to regular diet, if sxs with intake will recheck lipase at that time Hypothyroidism- tsh low but free t3 and t4 wnl-cont home med T3, home synthroid dose 400 mcg after d/w pharmacy, rec for outpt repeat level when not in acutely ill setting for possible dosing adjustment Thrombocytopenia, improving- no active bleeding, cont to monitor further diagnoses and plan as noted by resident <Mendez Mohamud S - Last Filed: 07/04/18 12:06> Hospitalist Progress Note - Encounter Date of Encounter: 07/04/18 Time of Encounter: 09:09 - Subjective Interval History: Pt seen at bedside. She has no acute complaints or concerns. Tolerating diet. - Exam Vitals: Temp Pulse Resp BP Pulse Ox 97.6 F 65 15 134/71 100 07/04/18 07:41 07/04/18 07:41 07/04/18 07:41 07/04/18 07:41 07/04/18 07:41 Exam: General: Patient is alert, oriented, in no distress, Head: atraumatic, normocephalic, Eye: normal appearance, PERRL, no scleral icterus, no conjunctival injection Neck: normal inspection, trachea midline, full ROM, Chest: normal inspection, symmetric chest rise Respiratory: Good respiratory effort. Bilateral breath sounds are clear without wheezing, crackles, or rhonchi. Cardiovascular: RRR s1 and s2 No clicks, rubs, gallops, or murmors. Abdomen: Bowel sounds present normoactive x-4 quadrants. Abdomen is soft, nondistended. no Epigastric tenderness. No guarding or rebound. No organomegaly noted, obese musculoskeletal: Spontaneously moving all extremities. no edema, no calf tenderness, no ulcers bilateral feet Skin: warm, dry, intact. Neuro: Alert and oriented x3, no focal deficits Psych: Patient's affect is normal - Assessment and Plan (1) DKA (diabetic ketoacidoses) Current Visit: Yes Status: Acute Assessment and Plan: Resolved. DKA most likely secondary to compliance vs infectious vs pancreatitis - pt was admitted to the ICU on 06/30/18, has had multiple episodes of DKA - pt takes 40U long acting at home in AM and follows ISS for meals Beta hydroxybutyrate >2 Procalcitonoin 7 UDS negative UA negative, did show >1000 glucose with large bilirubin HbA1c 9.6% Plan: - fluids per DKA protocol have been dc - discontinue maintenance fluids 75cc D5 in 1/2 NS - VS per nursing protocol - continue telemetry [facility] - 18 U levemir this AM, plan to calculate how much the pt needs for tomorrow this afternoon - zofran prn nausea - pt is on zosyn day 5 as detailed below; will plan on sending the pt on PO abx when discharged to complete for suspected colitis - FEN: advance to ADA diet - dispo: advance diet, discontinue IVF, likely to be d/c tomorrow; will be home- going diabetic education will be set up for the pt on an outpatient basis (2) Pancreatitis Current Visit: Yes Status: Acute Assessment and Plan: Lipase 280 with evidence of pancreatitis on CT scan from admission ---> repeat lipase 58 - pt denies epigastric pain and tenderness Resolved. Plan: - discontinue IVF 75cc as above - advance to ADA (3) CARL (acute kidney injury) Current Visit: Yes Status: Resolved Assessment and Plan: Resolved. Was likely pre-renal in the setting of DKA and dehydration. Admission creatinine 1.23, improved to 0.[address] scan negative for hydronephrosis. (4) Acute encephalopathy Current Visit: Yes Status: Resolved Assessment and Plan: Resolved. Likely secondary to DKA and hyperosmolality. CT head negative. Fall, seizure, aspiration precautions. (5) Lactic acidosis Current Visit: Yes Status: Resolved Assessment and Plan: Elevated on admission, now 1.8, was likely secondary to severe dehydration and DKA. (6) Hypothyroidism Current Visit: Yes Status: Acute Assessment and Plan: con't synthroid will need outpatient workup for this, TSH continues to be low on maxed out reigmen of T3 and snthoird. (7) DVT prophylaxis Current Visit: Yes Status: Acute Assessment and Plan: scd (8) Leukocytosis Current Visit: Yes Status: Acute Assessment and Plan: Most likely secondary to DKA and severe dehydration vs pancreatitis - Chest x-ray negative low lung volume study - UA: Negative for UTI - CT chestabd+pelvis negative for PNA (+) for inflammatory changes around pancreatitis; colonic wall thickening - pro-calcitonin 7.51 - stool panel negative Plan: - d/c vancomycin - continuezosyn day 5, plan to de-escalate and send home on oral abx - blood cx pending ngtd (9) Colitis Current Visit: Yes Status: Suspected Assessment and Plan: Suspected. See above for leukocytosis. DVT Prophylaxis: scd - Time Spent with Patient Total time spent is greater than 50% in coordination of care (as documented) at patient's floor/unit and/or counseling patient: less than 15 minutes Plan of Care Discussed with: patient Internal Medicine: Result - Labs CBC & Chem 7: 07/04/18 02:26 07/04/18 02:26 Labs: Short CBC 07/03/18 07/04/18 Range/Units 09:02 02:26 WBC 3.3 L 4.0 L (4.3-11.1) K/mcL Hgb 9.5 L 9.4 L (11.5-15.4) g/dL Hct 28.7 L 28.3 L (35.3-44.9) % Plt Count 77 L 115 L (140-400) K/mcL BMP 07/03/18 07/04/18 09:02 02:26 Sodium 136 139 Potassium 4.4 3.9 Chloride 113 H 112 H Carbon Dioxide 16 L 20 L BUN 6 7 Creatinine 0.54 L 0.55 L Glucose 254 H 158 H Calcium 7.8 L 8.3 L - ABG Interpretation ABG results: ABG ABG pH 7.36 pH Units (7.32-7.45) 07/01/18 00:04 ABG pCO2 30 mmHg (35-45) L 07/01/18 00:04 ABG pO2 99 mmHg (85-104) 07/01/18 00:04 ABG O2 Saturation 98 % (95-98) 07/01/18 00:04 <Christine Echavarria M - Last Filed: 07/04/18 11:20> (1) DKA (diabetic ketoacidoses) Qualifiers: Diabetes mellitus type: type 2 Diabetes mellitus complication detail: without coma Qualified Code(s): E11.10 - Type 2 diabetes mellitus with ketoacidosis without coma (2) Leukocytosis Qualifiers: Leukocytosis type: unspecified Qualified Code(s): D72.829 - Elevated white blood cell count, unspecified (6) Hypothyroidism Qualifiers: Hypothyroidism type: acquired Qualified Code(s): E03.9 - Hypothyroidism, unspecified (8) Acute renal failure (ARF) Qualifiers: Acute renal failure type: unspecified Qualified Code(s): N17.9 - Acute kidney failure, unspecified <Mendez Mohamud S - Last Filed: 07/04/18 12:06> (1) DKA (diabetic ketoacidoses) Qualifiers: Diabetes mellitus type: type 2 Diabetes mellitus complication detail: without coma Qualified Code(s): E11.10 - Type 2 diabetes mellitus with ketoacidosis without coma (2) Pancreatitis Qualifiers: Chronicity: acute Pancreatitis type: unspecified pancreatitis type Acute p ancreatitis complication: unspecified Qualified Code(s): K85.90 - Acute pancreatitis without necrosis or infection, unspecified (6) Hypothyroidism Qualifiers: Hypothyroidism type: acquired Qualified Code(s): E03.9 - Hypothyroidism, unspecified (8) Leukocytosis Qualifiers: Leukocytosis type: unspecified Qualified Code(s): D72.829 - Elevated white blood cell count, unspecified
[2018-07-05] MEDS: Insulin LISPRO 300 UNITS/3 ML VIAL SQ SCH ×5 (04:17→20:37)
[2018-07-05 06:06] LABS: Hematocrit 28.1 % (35.3-44.9); Hemoglobin 9.6 g/dL (11.5-15.4); Mean Corpuscular HGB Conc 34.2 g/dL (31.6-35.5); Mean Corpuscular Hemoglobin 33.8 pg (28.0-33.3); Mean Corpuscular Volume 98.9 fL (83.0-100.0); Mean Platelet Volume 11.8 fL (9.4-12.4); Platelet Count 123 K/mcL (140-400); Red Blood Count 2.84 M/mcL (3.82-4.97); Red Cell Distribution Width 11.8 % (11.5-14.5)
[2018-07-05 06:20] LABS: BUN/Creatinine Ratio 20 (6-26); Blood Urea Nitrogen 10 mg/dL (6-20); Calcium 8.6 mg/dL (8.6-10.3); Carbon Dioxide 19 mEq/L (23-29); Chloride 111 mEq/L (98-107); Glucose 176 mg/dL (70-105); Osmolality,Calculated 295 (280-300); Potassium 4.7 mEq/L (3.5-5.1); Sodium 141 mEq/L (136-145); eGFR For Non-African Americans > 60 (> 60)
[2018-07-05] MEDS: Gabapentin 400 MG CAPSULE PO SCH ×3 (08:06→20:41)
[2018-07-05] MEDS: Folic Acid 1 MG TABLET PO SCH (08:06)
[2018-07-05] MEDS: Famotidine 20 MG TABLET PO SCH ×2 (08:06→20:41)
[2018-07-05] MEDS: Piperacillin/Tazobactam 3.375 GM in 0.9 % Sodium Chloride Mini Bag 100 ML IVPB SCH (08:07)
[2018-07-05] MEDS: Aspirin 81 MG TAB.CHEW PO SCH (08:07)
--- NOTE | 2018-07-05 08:36 | Internal Med Progress Note ---
<Christine Echavarria - Last Filed: 07/05/18 15:19> Hospitalist Progress Note - Encounter Date of Encounter: 07/05/18 - Exam Vitals: Temp Pulse Resp BP Pulse Ox 98.0 F 74 16 123/73 98 07/05/18 14:35 07/05/18 14:35 07/05/18 14:35 07/05/18 14:35 07/05/18 14:35 - Assessment and Plan (1) DKA (diabetic ketoacidoses) Current Visit: Yes Status: Acute (2) Leukocytosis Current Visit: Yes Status: Acute (3) Acute encephalopathy Current Visit: Yes Status: Resolved (4) DM w/ hyperosmolarity Current Visit: Yes Status: Acute (5) Lactic acidosis Current Visit: Yes Status: Resolved (6) Hypothyroidism Current Visit: Yes Status: Acute (7) DVT prophylaxis Current Visit: Yes Status: Acute (8) Acute renal failure (ARF) Current Visit: Yes Status: Acute - Time Spent with Patient Total time spent is greater than 50% in coordination of care (as documented) at patient's floor/unit and/or counseling patient: Internal Medicine: Result - Labs CBC & Chem 7: 07/05/18 04:00 07/05/18 05:53 Labs: Short CBC 07/05/18 Range/Units 04:00 WBC 4.0 L (4.3-11.1) K/mcL Hgb 9.6 L (11.5-15.4) g/dL Hct 28.1 L (35.3-44.9) % Plt Count 123 L (140-400) K/mcL BMP 07/05/18 05:53 Sodium 141 Potassium 4.7 Chloride 111 H Carbon Dioxide 19 L BUN 10 Creatinine 0.51 L Glucose 176 H Calcium 8.6 - ABG Interpretation ABG results: ABG ABG pH 7.36 pH Units (7.32-7.45) 07/01/18 00:04 ABG pCO2 30 mmHg (35-45) L 07/01/18 00:04 ABG pO2 99 mmHg (85-104) 07/01/18 00:04 ABG O2 Saturation 98 % (95-98) 07/01/18 00:04 Consult Discharge Plan - Plan Referrals: Sunday Mcneil MD [Non-Partnered Physician] - 07/14/18 1:45 pm - Attending Attestation I examined this patient and my medical decision-making was reviewed with the Resident Physician Dr Greenberg. I agree with the documented findings, disposition and treatment plan as described except to the extent set forth below. Ms Shay is admitted for DKA, acute pancreatitis and colitis awake, having some mild epigastric pain. does not seem to be worse with her breakfast. started overnight, constant and aching. no n/v/d or fevers or chills. checked lipase and 150s. epigastric pain present this afternoon. gen- alert, awake,appears stated age cv- reg rate and rhythm, normal s1,s2 lungs- ctabl, normal resp effort on room air abd- soft, + epigastric tenderness, non distended, + bs, neuro- AAOx3 DKA, resolved Possible non compliance + infection Uncontrolled DM, A1C 9.6 Gap remains closed -stable with current levemir regimen. -her U-100 is equivalnt dosing to levemir as d/w pharmacy- will dc on her home U-100 at current inpt dose of levemir -her home SSI appears FAR too high for her--will dc on the current SSI she is receiving but with her home aspart Sepsis with HR >90, elevated lactate and WBC in 20s, now suspected to have been related to DKA, and pancreatitis, and possible colitis resolved CT evidence of pancreatitis and possible colitis c diff and stool cx neg -s/p zosyn Colitis- treatment/ work up as above- no bacterial etiology requiring abx Pancreatitis- failed advancement to reg diet, reduce diet,IVF bolus and MIVF, repeat lipase in am Hypothyroidism- tsh low but free t3 and t4 wnl-cont home med T3, home synthroid dose 400 mcg after d/w pharmacy, rec for outpt repeat level when not in acutely ill setting for possible dosing adjustment Thrombocytopenia, improving- no active bleeding, cont to monitor pancytopenia- improving- follow up with pcp for further work up further diagnoses and plan as noted by resident <Manuel Greenberg - Last Filed: 07/05/18 17:24> Hospitalist Progress Note - Encounter Date of Encounter: 07/05/18 Time of Encounter: 09:23 - Subjective Interval History: Patient seen and examined at bedside this morning. She states overall she is doing well but is having some abdominal pain this morning. No pain is located in the epigastric and suprapubic region. She is tolerating her diet well without any complaints of nausea, vomiting. No other concerns at this time. - Exam Vitals: Temp Pulse Resp BP Pulse Ox 97.8 F 71 14 147/76 99 07/05/18 07:14 07/05/18 07:14 07/05/18 07:14 07/05/18 07:14 07/05/18 07:14 Exam: Gen.: Vitals noted. No acute distress. AAOx3, resting comfortably in bed. HEENT: PERRL/EOMI, oropharynx clear, Normocephalic, atraumatic, MMM Cardiac: RRR, no murmur, +S1/S2, No BLE edema Pulmonary: CTA bilaterally, no wheezes, rales or rhonchi, equal chest expansion, unlabored breathing Abdomen: soft, moderately tender to epigastric and suprapubic region, no rebound tenderness., BS noted, no guarding, no palpable HSM Skin: warm and dry, no visible lesions. MSK: ROM intact, no joint swelling noted, gait no assessed while in bed. Non tender calf or clubbing Neuro: A&Ox3, moves all extremities, no focal deficits, sensation intact Psych: Appropriate mood and behavior, AOx3 - Assessment and Plan (1) DKA (diabetic ketoacidoses) Current Visit: Yes Status: Acute Assessment and Plan: Resolved. Anion gap closed DKA most likely secondary to compliance vs infectious vs pancreatitis - pt was admitted to the ICU on 06/30/18, has had multiple episodes of DKA - pt takes 40U long acting at home in AM and follows ISS for meals Beta hydroxybutyrate >2 Procalcitonoin 7 UDS negative UA negative, did show >1000 glucose with large bilirubin HbA1c 9.6% Plan: - VS per nursing protocol - continue telemetry montiroing - 27 U levemir this AM, will monitor on current dose - BS have been 180-200s - zofran prn nausea - Patient's suspected pancreatitis as below is delaying discharge, will restart fluids and decrease diet. (2) Pancreatitis Current Visit: Yes Status: Acute Assessment and Plan: - As demonstrated by both CT findings as well as elevated lipase of 153 - Patient having increased abdominal discomfort this morning - Patient initially treated with fluids and did attempt to tolerate advanced to diabetic diet, however patient reports increasing pain. - Diet de-escalate to full liquid - 500 milliliter normal saline bolus ordered, followed by 125 mL per hour maintenance fluids - We will repeat lipase in the morning (3) Leukocytosis Current Visit: Yes Status: Acute Assessment and Plan: Most likely secondary to DKA versus pancreatitis Chest x-ray negative low lung volume study UA: Negative for UTI Completed 5 day course of Zosyn for possible colitis etiology Blood cultures negative for growth final 2 Continue treatment as elsewhere documented (4) Acute encephalopathy Current Visit: Yes Status: Resolved Assessment and Plan: Resolved Secondary to DKA as above (5) Hypothyroidism Current Visit: Yes Status: Acute Assessment and Plan: continue home medications TSH low at 0.264, however free T4 and T3 within normal limits (6) Acute renal failure (ARF) Current Visit: Yes Status: Acute Assessment and Plan: Most likely secondary to severe dehydration Creatinine on presentation of 1.54 Has resolved with most recent creatinine of 0.51 after fluid resuscitation We will continue monitor renal function and avoid nephrotoxins as able (7) DVT prophylaxis Current Visit: Yes Status: Acute Assessment and Plan: heparin sc - Time Spent with Patient Total time spent is greater than 50% in coordination of care (as documented) at patient's floor/unit and/or counseling patient: Internal Medicine: Result - Labs CBC & Chem 7: 07/05/18 04:00 07/05/18 05:53 Labs: Short CBC 07/05/18 Range/Units 04:00 WBC 4.0 L (4.3-11.1) K/mcL Hgb 9.6 L (11.5-15.4) g/dL Hct 28.1 L (35.3-44.9) % Plt Count 123 L (140-400) K/mcL BMP 07/05/18 05:53 Sodium 141 Potassium 4.7 Chloride 111 H Carbon Dioxide 19 L BUN 10 Creatinine 0.51 L Glucose 176 H Calcium 8.6 - ABG Interpretation ABG results: ABG ABG pH 7.36 pH Units (7.32-7.45) 07/01/18 00:04 ABG pCO2 30 mmHg (35-45) L 07/01/18 00:04 ABG pO2 99 mmHg (85-104) 07/01/18 00:04 ABG O2 Saturation 98 % (95-98) 07/01/18 00:04 <Christine Echavarria - Last Filed: 07/05/18 15:19> (1) DKA (diabetic ketoacidoses) Qualifiers: Diabetes mellitus type: type 2 Diabetes mellitus complication detail: without coma Qualified Code(s): E11.10 - Type 2 diabetes mellitus with ketoacidosis without coma (2) Leukocytosis Qualifiers: Leukocytosis type: unspecified Qualified Code(s): D72.829 - Elevated white blood cell count, unspecified (6) Hypothyroidism Qualifiers: Hypothyroidism type: acquired Qualified Code(s): E03.9 - Hypothyroidism, unspecified (8) Acute renal failure (ARF) Qualifiers: Acute renal failure type: unspecified Qualified Code(s): N17.9 - Acute kidney failure, unspecified <Manuel Greenberg - Last Filed: 07/05/18 17:24> (1) DKA (diabetic ketoacidoses) Qualifiers: Diabetes mellitus type: type 2 Diabetes mellitus complication detail: without coma Qualified Code(s): E11.10 - Type 2 diabetes mellitus with ketoacidosis without coma (2) Pancreatitis Qualifiers: Chronicity: acute Pancreatitis type: unspecified pancreatitis type Acute pa ncreatitis complication: unspecified Qualified Code(s): K85.90 - Acute pancreatitis without necrosis or infection, unspecified (3) Leukocytosis Qualifiers: Leukocytosis type: unspecified Qualified Code(s): D72.829 - Elevated white blood cell count, unspecified (5) Hypothyroidism Qualifiers: Hypothyroidism type: acquired Qualified Code(s): E03.9 - Hypothyroidism, unspecified (6) Acute renal failure (ARF) Qualifiers: Acute renal failure type: unspecified Qualified Code(s): N17.9 - Acute kidney failure, unspecified
[2018-07-05] MEDS ORDERED: Insulin DETEMIR 100 UNIT/ML X5UNITS SQ ONE (09:00)
[2018-07-05 09:56] LABS: Lipase 153 Units/L (11-82)
[2018-07-05] MEDS ORDERED: 0.9 % Sodium Chloride 500 ML IVC ONE (11:33)
[2018-07-05] MEDS: 0.9 % Sodium Chloride 1,000 ML IVC SCH (17:39)
[2018-07-06] MEDS: 0.9 % Sodium Chloride 1,000 ML IVC SCH ×3 (01:12→20:32)
[2018-07-06 06:48] LABS: Basophils % 0.5 %; Eosinophils # 0.3 K/mcL (0.0-0.6); Eosinophils % 6.5 %; Hematocrit 26.7 % (35.3-44.9); Hemoglobin 8.8 g/dL (11.5-15.4); Immature Granulocytes % 0.5 % (0-4); Lymphocytes # 1.3 K/mcL (0.6-4.6); Lymphocytes % 33.9 %; Mean Corpuscular Hemoglobin 33.5 pg (28.0-33.3); Mean Corpuscular Volume 101.5 fL (83.0-100.0); Mean Platelet Volume 11.7 fL (9.4-12.4); Monocytes # 0.4 K/mcL (0.0-1.3); Monocytes % 10.2 %; Neutrophils # 1.9 K/mcL (1.6-8.9); Platelet Count 158 K/mcL (140-400); Red Blood Count 2.63 M/mcL (3.82-4.97); Segmented Neutrophils % 48.4 %
[2018-07-06 07:31] LABS: BUN/Creatinine Ratio 23 (6-26); Blood Urea Nitrogen 10 mg/dL (6-20); Calcium 8.3 mg/dL (8.6-10.3); Carbon Dioxide 24 mEq/L (23-29); Chloride 109 mEq/L (98-107); Glucose 262 mg/dL (70-105); Lipase 251 Units/L (11-82); Osmolality,Calculated 298 (280-300); Potassium 3.8 mEq/L (3.5-5.1); Sodium 140 mEq/L (136-145); eGFR For Non-African Americans > 60 (> 60)
[2018-07-06] MEDS: Folic Acid 1 MG TABLET PO SCH (08:20)
[2018-07-06] MEDS: Famotidine 20 MG TABLET PO SCH ×2 (08:20→20:29)
[2018-07-06] MEDS: Gabapentin 400 MG CAPSULE PO SCH ×3 (08:20→20:29)
[2018-07-06] MEDS: Aspirin 81 MG TAB.CHEW PO SCH (08:20)
[2018-07-06] MEDS: Insulin LISPRO 300 UNITS/3 ML VIAL SQ SCH ×4 (08:21→20:31)
--- NOTE | 2018-07-06 09:50 | Internal Med Progress Note ---
<Manuel Greenberg - Last Filed: 07/06/18 14:34> Hospitalist Progress Note - Encounter Date of Encounter: 07/06/18 Time of Encounter: 09:15 - Subjective Interval History: Patient seen and examined at bedside this morning. She states that overall she does feel improved from yesterday but is still having some mild epigastric ab dominal pain. She states she tolerated dinner last night well which consists of soup. She denies any symptoms of nausea, vomiting, fevers, chills, shortness of breath. - Exam Vitals: Temp Pulse Resp BP Pulse Ox 98.2 F 83 14 125/65 99 07/06/18 04:07/06/18 04:07/06/18 04:07/06/18 04:07/06/18 04:09 Exam: Gen.: Vitals noted. No acute distress. AAOx3, resting comfortably in bed. HEENT: PERRL/EOMI, oropharynx clear, Normocephalic, atraumatic, MMM Cardiac: RRR, no murmur, +S1/S2, No BLE edema Pulmonary: CTA bilaterally, no wheezes, rales or rhonchi, equal chest expansion, unlabored breathing Abdomen: soft, mildly tender to epigastric and suprapubic region, no rebound tenderness., BS noted, no guarding, no palpable HSM Skin: warm and dry, no visible lesions. MSK: ROM intact, no joint swelling noted, gait no assessed while in bed. Non tender calf or clubbing Neuro: A&Ox3, moves all extremities, no focal deficits, sensation intact Psych: Appropriate mood and behavior, AOx3 - Assessment and Plan (1) DKA (diabetic ketoacidoses) Current Visit: Yes Status: Acute Assessment and Plan: Resolved. Anion gap closed DKA most likely secondary to compliance vs infectious vs pancreatitis - pt was admitted to the ICU on 06/30/18, has had multiple episodes of DKA - pt takes 40U long acting at home in AM and follows ISS for meals Beta hydroxybutyrate >2 Procalcitonoin 7 UDS negative UA negative, did show >1000 glucose with large bilirubin HbA1c 9.6% Plan: - VS per nursing protocol - continue telemetry [facility] --> When sugars have been fluctuating over the last couple days as diet fluctuates. Range of 50s to 200s overnight. We will hold basal insulin and continue sliding scale coverage as she has been changed to nothing by mouth for pancreatitis as below. - zofran prn nausea (2) Pancreatitis Current Visit: Yes Status: Acute Assessment and Plan: - As demonstrated by both CT findings as well as elevated lipase of 153 - Repeat lipase this morning of 251 - Patient continuing to have abdominal discomfort this morning - Patient initially treated with fluids and did attempt to tolerate advanced to diabetic diet, however patient reports increasing pain. - Diet de-escalate to nothing by mouth except ice chips - 500 milliliter normal saline bolus ordered, followed by 125 mL per hour maintenance fluids - We will repeat lipase in the morning (3) Leukocytosis Current Visit: Yes Status: Resolved Assessment and Plan: Most likely secondary to DKA versus pancreatitis White count 6.4 this morning Chest x-ray negative low lung volume study UA: Negative for UTI Completed 5 day course of Zosyn for possible colitis etiology Blood cultures negative for growth final 2 Continue treatment as elsewhere documented (4) Acute encephalopathy Current Visit: Yes Status: Resolved Assessment and Plan: Resolved Secondary to DKA as above (5) Hypothyroidism Current Visit: Yes Status: Chronic Assessment and Plan: continue home medications TSH low at 0.264, however free T4 and T3 within normal limits (6) Acute renal failure (ARF) Current Visit: Yes Status: Resolved Assessment and Plan: Most likely secondary to severe dehydration Creatinine on presentation of 1.54 Has resolved with most recent creatinine of 0.44 after fluid resuscitation We will continue monitor renal function and avoid nephrotoxins as able (7) DVT prophylaxis Current Visit: Yes Status: Acute Assessment and Plan: heparin sc (8) Anemia Current Visit: Yes Status: Chronic Assessment and Plan: - As noted on labs this morning with most recent hemoglobin of 8.8 - Has down trended from 12 from admission - Upon further interview, patient states that she has a chronic history of anemia but is unsure of her baseline levels - She does take iron supplementation at home - Suspect that this drop is secondary to fluid resuscitation and setting of pancreatitis as well as DKA - No signs or symptoms of bleeding at this time - We will continue monitor and suspected drop with morning labs given continue fluids - We will not restart home iron due to anchor tightest and GI irritability - Time Spent with Patient Total time spent is greater than 50% in coordination of care (as documented) at patient's floor/unit and/or counseling patient: Internal Medicine: Result - Labs CBC & Chem 7: 07/06/18 05:01 07/06/18 05:01 Labs: Short CBC 07/06/18 Range/Units 05:01 WBC 3.8 L (4.3-11.1) K/mcL Hgb 8.8 L (11.5-15.4) g/dL Hct 26.7 L (35.3-44.9) % Plt Count 158 (140-400) K/mcL Neutrophils # 1.9 (1.6-8.9) K/mcL BMP 07/06/18 05:01 Sodium 140 Potassium 3.8 Chloride 109 H Carbon Dioxide 24 BUN 10 Creatinine 0.44 L Glucose 262 H Calcium 8.3 L - ABG Interpretation ABG results: ABG ABG pH 7.36 pH Units (7.32-7.45) 07/01/18 00:04 ABG pCO2 30 mmHg (35-45) L 07/01/18 00:04 ABG pO2 99 mmHg (85-104) 07/01/18 00:04 ABG O2 Saturation 98 % (95-98) 07/01/18 00:04 Consult Discharge Plan - Plan Referrals: Sunday Mcneil MD [Non-Partnered Physician] - 07/14/18 1:45 pm <Christine Echavarria - Last Filed: 07/06/18 15:15> Hospitalist Progress Note - Encounter Date of Encounter: 07/06/18 - Exam Vitals: Temp Pulse Resp BP Pulse Ox 97.9 F 72 16 117/63 100 07/06/18 12:18 07/06/18 12:18 07/06/18 12:18 07/06/18 12:18 07/06/18 12:18 - Assessment and Plan (1) DKA (diabetic ketoacidoses) Current Visit: Yes Status: Acute (2) Leukocytosis Current Visit: Yes Status: Resolved (3) Acute encephalopathy Current Visit: Yes Status: Resolved (4) Hypothyroidism Current Visit: Yes Status: Chronic (5) DVT prophylaxis Current Visit: Yes Status: Acute (6) Acute renal failure (ARF) Current Visit: Yes Status: Resolved (7) Pancreatitis Current Visit: Yes Status: Acute (8) Anemia Current Visit: Yes Status: Chronic - Time Spent with Patient Total time spent is greater than 50% in coordination of care (as documented) at patient's floor/unit and/or counseling patient: Internal Medicine: Result - Labs CBC & Chem 7: 07/06/18 05:01 07/06/18 05:01 Labs: Short CBC 07/06/18 Range/Units 05:01 WBC 3.8 L (4.3-11.1) K/mcL Hgb 8.8 L (11.5-15.4) g/dL Hct 26.7 L (35.3-44.9) % Plt Count 158 (140-400) K/mcL Neutrophils # 1.9 (1.6-8.9) K/mcL BMP 07/06/18 05:01 Sodium 140 Potassium 3.8 Chloride 109 H Carbon Dioxide 24 BUN 10 Creatinine 0.44 L Glucose 262 H Calcium 8.3 L - ABG Interpretation ABG results: ABG ABG pH 7.36 pH Units (7.32-7.45) 07/01/18 00:04 ABG pCO2 30 mmHg (35-45) L 07/01/18 00:04 ABG pO2 99 mmHg (85-104) 07/01/18 00:04 ABG O2 Saturation 98 % (95-98) 07/01/18 00:04 - Attending Attestation I examined this patient and my medical decision-making was reviewed with the Resident Physician Dr Greenberg. I agree with the documented findings, disposition and treatment plan as described except to the extent set forth below. Ms Shay is admitted for DKA, acute pancreatitis and colitis awake, cont epigastric pain, overall improving but present. no n/v/d. no fevers or chills. gen- alert, awake,appears stated age cv- reg rate and rhythm, normal s1,s2 lungs- ctabl, normal resp effort on room air abd- soft, + epigastric tenderness, no guarding or rebound, non distended, + bs, neuro- AAOx3 DKA, resolved Possible non compliance + infection Uncontrolled DM, A1C 9.6 -variable glucose levels with change in diet over last 24hs, ssi only at this time and npo -her U-100 is equivalnt dosing to levemir as d/w pharmacy- will dc on her home U-100 at whatever dose deemed appropriate at time of dc -her home SSI appears FAR too high for her--will dc on the current SSI she is receiving but with her home aspart Sepsis with HR >90, elevated lactate and WBC in 20s, now suspected to have been related to DKA, and pancreatitis, and possible colitis resolved CT evidence of pancreatitis and possible colitis c diff and stool cx neg -s/p zosyn Colitis- treatment/ work up as above- no bacterial etiology requiring abx Pancreatitis- failed advancement to reg diet, npo IVF bolus and MIVF, repeat lipase in am Hypothyroidism- tsh low but free t3 and t4 wnl-cont home med T3, home synthroid dose 400 mcg after d/w pharmacy, rec for outpt repeat level when not in acutely ill setting for possible dosing adjustment Thrombocytopenia,resolved Follow up with pcp for known chronic anemia and leukopenia once out of the acutely ill setting further diagnoses and plan as noted by resident <Manuel Greenberg - Last Filed: 07/06/18 14:34> (1) DKA (diabetic ketoacidoses) Qualifiers: Diabetes mellitus type: type 2 Diabetes mellitus complication detail: without coma Qualified Code(s): E11.10 - Type 2 diabetes mellitus with ketoacidosis w ithout coma (2) Pancreatitis Qualifiers: Chronicity: acute Pancreatitis type: unspecified pancreatitis type Acute pancreatitis complication: unspecified Qualified Code(s): K85.90 - Acute panc reatitis without necrosis or infection, unspecified (3) Leukocytosis Qualifiers: Leukocytosis type: unspecified Qualified Code(s): D72.829 - Elevated white blood cell count, unspecified (5) Hypothyroidism Qualifiers: Hypothyroidism type: acquired Qualified Code(s): E03.9 - Hypothyroidism, unspecified (6) Acute renal failure (ARF) Qualifiers: Acute renal failure type: unspecified Qualified Code(s): N17.9 - Acute kidney failure, unspecified (8) Anemia Qualifiers: Anemia type: iron deficiency Iron deficiency anemia type: unspecified iron deficiency Qualified Code(s): D50.9 - Iron deficiency anemia, unspecified <Christine Echavarria - Last Filed: 07/06/18 15:15> (1) DKA (diabetic ketoacidoses) Qualifiers: Diabetes mellitus type: type 2 Diabetes mellitus complication detail: without coma Qualified Code(s): E11.10 - Type 2 diabetes mellitus with ketoacidosis without coma (2) Leukocytosis Qualifiers: Leukocytosis type: unspecified Qualified Code(s): D72.829 - Elevated white bl ood cell count, unspecified (4) Hypothyroidism Qualifiers: Hypothyroidism type: acquired Qualified Code(s): E03.9 - Hypothyroidism, unspecified (6) Acute renal failure (ARF) Qualifiers: Acute renal failure type: unspecified Qualified Code(s): N17.9 - Acute kidney failure, unspecified (7) Pancreatitis Qualifiers: Chronicity: acute Pancreatitis type: unspecified pancreatitis type Acute pancreatitis complication: unspecified Qualified Code(s): K85.90 - Acute pancreatitis without necrosis or infection, unspecified (8) Anemia Qualifiers: Anemia type: iron deficiency Iron deficiency anemia type: unspecified iron deficiency Qualified Code(s): D50.9 - Iron deficiency anemia, unspecified
[2018-07-06] MEDS ORDERED: 0.9 % Sodium Chloride 500 ML IVC ONE (13:06)
[2018-07-07] MEDS: Insulin LISPRO 300 UNITS/3 ML VIAL SQ SCH ×4 (00:23→17:22)
[2018-07-07] MEDS: 0.9 % Sodium Chloride 1,000 ML IVC SCH ×2 (05:18→15:12)
[2018-07-07] MEDS: Folic Acid 1 MG TABLET PO SCH (07:36)
[2018-07-07] MEDS: Aspirin 81 MG TAB.CHEW PO SCH (07:36)
[2018-07-07] MEDS: Famotidine 20 MG TABLET PO SCH ×2 (07:36→21:24)
[2018-07-07] MEDS: Gabapentin 400 MG CAPSULE PO SCH ×3 (07:36→21:24)
[2018-07-07 08:03] LABS: Basophils % 0.7 %; Eosinophils # 0.3 K/mcL (0.0-0.6); Hematocrit 29.7 % (35.3-44.9); Hemoglobin 9.6 g/dL (11.5-15.4); Immature Granulocytes % 0.2 % (0-4); Lymphocytes # 1.3 K/mcL (0.6-4.6); Lymphocytes % 31.3 %; Mean Corpuscular HGB Conc 32.3 g/dL (31.6-35.5); Mean Corpuscular Hemoglobin 33.6 pg (28.0-33.3); Mean Corpuscular Volume 103.8 fL (83.0-100.0); Mean Platelet Volume 11.2 fL (9.4-12.4); Monocytes # 0.5 K/mcL (0.0-1.3); Monocytes % 11.2 %; Platelet Count 173 K/mcL (140-400); Red Blood Count 2.86 M/mcL (3.82-4.97); Segmented Neutrophils % 49.6 %
--- NOTE | 2018-07-07 10:16 | Discharge Summary ---
Date of Encounter: 07/07/18 - Discharge Diagnosis (1) DKA (diabetic ketoacidoses) Status: Acute Qualifiers: Diabetes mellitus type: type 2 Diabetes mellitus complication detail: without coma Qualified Code(s): E11.10 - Type 2 diabetes mellitus with ketoacidosis without coma (2) Pancreatitis Status: Acute Qualifiers: Chronicity: acute Pancreatitis type: unspecified pancreatitis type Acute pancreatitis complication: unspecified Qualified Code(s): K85.90 - Acute pancr eatitis without necrosis or infection, unspecified (3) Leukocytosis Status: Resolved Qualifiers: Leukocytosis type: unspecified Qualified Code(s): D72.829 - Elevated white blood cell count, unspecified (4) Acute encephalopathy Status: Resolved (5) Hypothyroidism Status: Chronic Qualifiers: Hypothyroidism type: acquired Qualified Code(s): E03.9 - Hypothyroidism, unspecified (6) Acute renal failure (ARF) Status: Resolved Qualifiers: Acute renal failure type: unspecified Qualified Code(s): N17.9 - Acute kidney failure, unspecified (7) Anemia Status: Chronic Qualifiers: Anemia type: iron deficiency Iron deficiency anemia type: unspecified iron deficiency Qualified Code(s): D50.9 - Iron deficiency anemia, unspecified (8) DVT prophylaxis Status: Acute Hospital course: Ms. Shay is a 52 year old female - Time Spent with Patient Total time spent providing and/or coordinating discharge services: - Discharge Medications Prescriptions: No Action Liothyronine Sodium 25 mcg PO QAM Simvastatin [Zocor] 40 mg PO DAILY Sertraline [Zoloft] 25 mg PO DAILY raNITIdine HCl [Zantac] 150 mg PO BID Meclizine HCl [Wal-Dram 2] 25 mg PO TID Lisinopril [Zestril] 5 mg PO DAILY Levothyroxine Sodium [Synthroid] 400 mcg PO QAM Insulin Degludec [Tresiba Flextouch U-100] 40 unit SQ QAM Insulin ASPART [NovoLOG] 0 unit SQ TID Hydrocodone/Acetaminophen [Hydrocodon-Acetaminophen 5-325] 1 tab PO BID PRN PRN Reason: Pain Gabapentin [Neurontin] 400 mg PO TID Dicyclomine Hcl [Bentyl] 20 mg PO BID Home Medications: Dicyclomine Hcl [Bentyl] 20 mg PO BID 06/30/18 [History] Gabapentin [Neurontin] 400 mg PO TID 06/30/18 [History] Hydrocodone/Acetaminophen [Hydrocodon-Acetaminophen 5-325] 1 tab PO BID PRN 06/30/18 [History] Insulin ASPART [NovoLOG] 0 unit SQ TID 06/30/18 [History] Insulin Degludec [Tresiba Flextouch U-100] 40 unit SQ QAM 06/30/18 [History] Levothyroxine Sodium [Synthroid] 400 mcg PO QAM 06/30/18 [History] Liothyronine Sodium 25 mcg PO QAM 06/30/18 [History] Lisinopril [Zestril] 5 mg PO DAILY 06/30/18 [History] Meclizine HCl [Wal-Dram 2] 25 mg PO TID 06/30/18 [History] Sertraline [Zoloft] 25 mg PO DAILY 06/30/18 [History] Simvastatin [Zocor] 40 mg PO DAILY 06/30/18 [History] raNITIdine HCl [Zantac] 150 mg PO BID 06/30/18 [History] Allergies/Adverse Reactions: Allergy/AdvReac Type Severity Reaction Status Date / Time pseudoephedrine Allergy Rash Verified 06/30/18 07:59 [From [facility]] Date of admission: 06/30/18 11:31 Primary care physician: PCP NONE Consults: 06/30/18 08:30 PICC LINE [Consult to Invasive Line Access Team] [CONS] Stat Reason for Consult: poor IV accesss Line Type: Midline 06/30/18 09:51 Consult to Nutrition [CONS] Routine Comment: Consulting Provider: NUTRITION Reason for Dietary Consult: Other Other:: loss of appetitie Consult to Pastoral Services [CONS] Routine Comment: Consult to Foreign Language Professor [CONS] Routine Reason for SW Consult: court date today with juvenile court, need help getting information to court. - Constitutional Vitals: Temp Pulse Resp BP Pulse Ox 98.2 F 85 16 134/67 96 07/07/18 06:53 07/07/18 06:53 07/07/18 06:53 07/07/18 06:53 07/07/18 06:53 - Patient Status Condition: Critical - Discharge Instructions Follow Up With: Sunday Mcneil MD [Non-Partnered Physician] - 07/14/18 1:45 pm
--- NOTE | 2018-07-07 10:29 | Internal Med Progress Note ---
<Christine Echavarria - Last Filed: 07/07/18 16:39> Hospitalist Progress Note - Encounter Date of Encounter: 07/07/18 - Exam Vitals: Temp Pulse Resp BP Pulse Ox 98.0 F 82 16 126/69 98 07/07/18 15:58 07/07/18 15:58 07/07/18 15:58 07/07/18 15:58 07/07/18 15:58 - Assessment and Plan (1) DKA (diabetic ketoacidoses) Current Visit: Yes Status: Resolved (2) Leukocytosis Current Visit: Yes Status: Resolved (3) Acute encephalopathy Current Visit: Yes Status: Resolved (4) Hypothyroidism Current Visit: Yes Status: Chronic (5) DVT prophylaxis Current Visit: Yes Status: Acute (6) Acute renal failure (ARF) Current Visit: Yes Status: Resolved (7) Pancreatitis Current Visit: Yes Status: Acute (8) Anemia Current Visit: Yes Status: Chronic - Time Spent with Patient Total time spent is greater than 50% in coordination of care (as documented) at patient's floor/unit and/or counseling patient: Internal Medicine: Result - Labs CBC & Chem 7: 07/07/18 07:34 07/06/18 05:01 Labs: Short CBC 07/07/18 Range/Units 07:34 WBC 4.1 L (4.3-11.1) K/mcL Hgb 9.6 L (11.5-15.4) g/dL Hct 29.7 L (35.3-44.9) % Plt Count 173 (140-400) K/mcL Neutrophils # 2.0 (1.6-8.9) K/mcL - ABG Interpretation ABG results: ABG ABG pH 7.36 pH Units (7.32-7.45) 07/01/18 00:04 ABG pCO2 30 mmHg (35-45) L 07/01/18 00:04 ABG pO2 99 mmHg (85-104) 07/01/18 00:04 ABG O2 Saturation 98 % (95-98) 07/01/18 00:04 Consult Discharge Plan - Plan Referrals: Sunday Mcneil MD [Non-Partnered Physician] - 07/14/18 1:45 pm - Attending Attestation I examined this patient and my medical decision-making was reviewed with the Resident Physician Dr Greenberg. I agree with the documented findings, disposition and treatment plan as described except to the extent set forth below. Ms Shay is admitted for DKA, acute pancreatitis and colitis awake, cont epigastric pain but greatly improved and barely there, no n/v/d. no fevers or chills. diet advanced to fullsand she will report sxs gen- alert, awake,appears stated age cv- reg rate and rhythm, normal s1,s2 lungs- ctabl, normal resp effort on room air abd- soft, non tender no guardingnon distended, + bs, neuro- AAOx3 DKA, resolved Possible non compliance + infection Uncontrolled DM, A1C 9.6 now again, with any advancement in diet elevated bs- 400s this morning -variable glucose levels with change in diet over last 24hs, -d/w pharmacy and all requirements reviewed--we will cont flull liquid diet and plan to dc on fulls with slow advancement outpt of her diet --therefore trial 5units insulin TID AC today + 20 units of Levemir HS tonight -her U-100 is equivalnt dosing to levemir as d/w pharmacy- will dc on her home U-100 at whatever dose deemed appropriate at time of dc -her home SSI appears FAR too high for her--will dc on the current SSI she is receiving but with her home aspart -if blood glucose stable on current trial regimen today may dc to home tomorrow Sepsis with HR >90, elevated lactate and WBC in 20s, now suspected to have been related to DKA, and pancreatitis, and possible colitis resolved CT evidence of pancreatitis and possible colitis c diff and stool cx neg -s/p zosyn Colitis- treatment/ work up as above- no bacterial etiology requiring abx Pancreatitis- failed advancement to reg diet, nrepeat lipase now normal again, will do full liquids and plan to dc on this diet with slow advancement as above outpt Hypothyroidism- tsh low but free t3 and t4 wnl-cont home med T3, home synthroid dose 400 mcg after d/w pharmacy, rec for outpt repeat level when not in acutely ill setting for possible dosing adjustment Thrombocytopenia,resolved Follow up with pcp for known chronic anemia and leukopenia once out of the acutely ill setting further diagnoses and plan as noted by resident <Manuel Greenberg - Last Filed: 07/07/18 17:33> Hospitalist Progress Note - Encounter Date of Encounter: 07/07/18 Time of Encounter: 08:11 - Subjective Interval History: Patient was seen and examined at bedside this morning. She states that overall she is feeling better and is continuing to have some mild epigastric abdominal pain. She has been tolerating ice chips throughout the day yesterday with no additional discomfort. Denies any symptoms of nausea, vomiting, fevers, chills. Overall improving. Of note, she has been refusing some insulin throughout the night and evening. - Exam Vitals: Temp Pulse Resp BP Pulse Ox 98.2 F 85 16 134/67 96 07/07/18 06:53 07/07/18 06:53 07/07/18 06:53 07/07/18 06:53 07/07/18 06:53 Exam: Gen.: Vitals noted. No acute distress. AAOx3, resting comfortably in bed. HEENT: PERRL/EOMI, oropharynx clear, Normocephalic, atraumatic, MMM Cardiac: RRR, no murmur, +S1/S2, No BLE edema Pulmonary: CTA bilaterally, no wheezes, rales or rhonchi, equal chest expansion, unlabored breathing Abdomen: soft, mildly tender to epigastric and suprapubic region, no rebound tenderness., BS noted, no guarding, no palpable HSM Skin: warm and dry, no visible lesions. MSK: ROM intact, no joint swelling noted, gait no assessed while in bed. Non tender calf or clubbing Neuro: A&Ox3, moves all extremities, no focal deficits, sensation intact Psych: Appropriate mood and behavior, AOx3 - Assessment and Plan (1) DKA (diabetic ketoacidoses) Current Visit: Yes Status: Resolved Assessment and Plan: Resolved. Anion gap closed DKA most likely secondary to compliance vs pancreatitis- less likely infection - pt was admitted to the ICU on 06/30/18, has had multiple episodes of DKA - pt takes 40U long acting at home in AM and follows ISS for meals Beta hydroxybutyrate >2 Procalcitonoin 7 UDS negative UA negative, did show >1000 glucose with large bilirubin HbA1c 9.6% Plan: - VS per nursing protocol - continue telemetry montiroing - Sugars have been fluctuating over the last couple days as diet fluctuates. Range of 50s to 400s. - Started on full liquid diet today. Will start 5 units prandial of lispro and start basal back at 20 units QHS. This was discussed with pharmacy - Anticipate that when she is discharged, will recommend discharge on full liquid/soft diet. Insulin coverage will be based on BS today on same diet. 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 - zofran prn nausea (2) Pancreatitis Current Visit: Yes Status: Acute Assessment and Plan: - As demonstrated by both CT findings as well as elevated lipase of 251 yesterday - Repeat lipase this morning of 77. - Patient continuing to have abdominal discomfort this morning, but improved. - NPO yesterday - Diet advanced to full liquid after clears for breakfast. - Fluids stopped. Will monitor and advance diet very slowly. (3) Leukocytosis Current Visit: Yes Status: Resolved Assessment and Plan: Most likely secondary to DKA versus pancreatitis White count 4 this morning Chest x-ray negative low lung volume study UA: Negative for UTI Completed 5 day course of Zosyn for possible colitis etiology Blood cultures negative for growth final 2 Continue treatment as elsewhere documented (4) Acute encephalopathy Current Visit: Yes Status: Resolved Assessment and Plan: Resolved Secondary to DKA as above (5) Hypothyroidism Current Visit: Yes Status: Chronic Assessment and Plan: continue home medications TSH low at 0.264, however free T4 and T3 within normal limits (6) Acute renal failure (ARF) Current Visit: Yes Status: Resolved Assessment and Plan: Most likely secondary to severe dehydration Creatinine on presentation of 1.54 Has resolved with most recent creatinine of 0.44 after fluid resuscitation We will continue monitor renal function and avoid nephrotoxins as able (7) Anemia Current Visit: Yes Status: Chronic Assessment and Plan: - As noted on labs this morning with most recent hemoglobin of 9.6 from 8.8 - Has down trended from 12 from admission - Upon further interview, patient states that she has a chronic history of anemia but is unsure of her baseline levels - She does take iron supplementation at home - Suspect that this drop is secondary to fluid resuscitation and setting of pancreatitis as well as DKA - No signs or symptoms of bleeding at this time - We will continue monitor and suspected drop with morning labs given continue fluids - We will not restart home iron due to GI irritability (8) DVT prophylaxis Current Visit: Yes Status: Acute Assessment and Plan: heparin sc watch with anemia - Time Spent with Patient Total time spent is greater than 50% in coordination of care (as documented) at patient's floor/unit and/or counseling patient: Internal Medicine: Result - Labs CBC & Chem 7: 07/07/18 07:34 07/06/18 05:01 Labs: Short CBC 07/07/18 Range/Units 07:34 WBC 4.1 L (4.3-11.1) K/mcL Hgb 9.6 L (11.5-15.4) g/dL Hct 29.7 L (35.3-44.9) % Plt Count 173 (140-400) K/mcL Neutrophils # 2.0 (1.6-8.9) K/mcL - ABG Interpretation ABG results: ABG ABG pH 7.36 pH Units (7.32-7.45) 07/01/18 00:04 ABG pCO2 30 mmHg (35-45) L 07/01/18 00:04 ABG pO2 99 mmHg (85-104) 07/01/18 00:04 ABG O2 Saturation 98 % (95-98) 07/01/18 00:04 ___ <Christine Echavarria - Last Filed: 07/07/18 16:39> (1) DKA (diabetic ketoacidoses) Qualifiers: Diabetes mellitus type: type 2 Diabetes mellitus complication detail: without coma Qualified Code(s): E11.10 - Type 2 diabetes mellitus with ketoacidosis without coma (2) Leukocytosis Qualifiers: Leukocytosis type: unspecified Qualified Code(s): D72.829 - Elevated white blood cell count, unspecified (4) Hypothyroidism Qualifiers: Hypothyroidism type: acquired Qualified Code(s): E03.9 - Hypothyroidism, unspecified (6) Acute renal failure (ARF) Qualifiers: Acute renal failure type: unspecified Qualified Code(s): N17.9 - Acute kidney failure, unspecified (7) Pancreatitis Qualifiers: Chronicity: acute Pancreatitis type: unspecified pancreatitis type Acute pancreatitis complication: unspecified Qualified Code(s): K85.90 - Acute pancreatitis without necrosis or infection, unspecified (8) Anemia Qualifiers: Anemia type: iron deficiency Iron deficiency anemia type: unspecified iron deficiency Qualified Code(s): D50.9 - Iron deficiency anemia, unspecified <Manuel Greenberg - Last Filed: 07/07/18 17:33> (1) DKA (diabetic ketoacidoses) Qualifiers: Diabetes mellitus type: type 2 Diabetes mellitus complication detail: without coma Qualified Code(s): E11.10 - Type 2 diabetes mellitus with ketoacidosis without coma (2) Pancreatitis Qualifiers: Chronicity: acute Pancreatitis type: unspecified pancreatitis type Acute pancreatitis complication: unspecified Qualified Code(s): K85.90 - Acute pancreatitis without necrosis or infection, unspecified (3) Leukocytosis Qualifiers: Leukocytosis type: unspecified Qualified Code(s): D72.829 - Elevated white blood cell count, unspecified (5) Hypothyroidism Qualifiers: Hypothyroidism type: acquired Qualified Code(s): E03.9 - Hypothyroidism, unspecified (6) Acute renal failure (ARF) Qualifiers: Acute renal failure type: unspecified Qualified Code(s): N17.9 - Acute kidney failure, unspecified (7) Anemia Qualifiers: Anemia type: iron deficiency Iron deficiency anemia type: unspecified iron deficiency Qualified Code(s): D50.9 - Iron deficiency anemia, unspecified
[2018-07-07] MEDS ORDERED: Insulin LISPRO 300 UNITS/3 ML VIAL SQ SCH (11:33)
[2018-07-07] MEDS ORDERED: Insulin LISPRO 300 UNITS/3 ML VIAL SQ ONE (12:03)
[2018-07-07] MEDS ORDERED: Insulin DETEMIR 100 UNIT/ML X5UNITS SQ SCH (21:00)
[2018-07-08 07:07] LABS: Basophils % 0.6 %; Eosinophils # 0.2 K/mcL (0.0-0.6); Eosinophils % 6.9 %; Hematocrit 28.4 % (35.3-44.9); Hemoglobin 9.4 g/dL (11.5-15.4); Immature Granulocytes % 0.3 % (0-4); Lymphocytes # 1.4 K/mcL (0.6-4.6); Lymphocytes % 39.9 %; Mean Corpuscular HGB Conc 33.1 g/dL (31.6-35.5); Mean Corpuscular Hemoglobin 33.6 pg (28.0-33.3); Mean Corpuscular Volume 101.4 fL (83.0-100.0); Mean Platelet Volume 10.9 fL (9.4-12.4); Monocytes # 0.6 K/mcL (0.0-1.3); Monocytes % 16.2 %; Neutrophils # 1.3 K/mcL (1.6-8.9); Platelet Count 202 K/mcL (140-400); Red Cell Distribution Width 11.9 % (11.5-14.5); Segmented Neutrophils % 36.1 %
[2018-07-08] MEDS: Gabapentin 400 MG CAPSULE PO SCH (07:29)
[2018-07-08] MEDS: Famotidine 20 MG TABLET PO SCH (07:29)
[2018-07-08] MEDS: Aspirin 81 MG TAB.CHEW PO SCH (07:29)
[2018-07-08] MEDS: Folic Acid 1 MG TABLET PO SCH (07:29)
[2018-07-08] MEDS: Insulin LISPRO 300 UNITS/3 ML VIAL SQ SCH ×2 (07:31→12:02)
--- NOTE | 2018-07-08 07:46 | Discharge Summary ---
<Rios Garciaul Lee Ann - Last Filed: 07/08/18 14:30> Date of Encounter: 07/08/18 - Discharge Diagnosis (1) DKA (diabetic ketoacidoses) Status: Resolved Qualifiers: Diabetes mellitus type: type 2 Diabetes mellitus complication detail: without coma Qualified Code(s): E11.10 - Type 2 diabetes mellitus with ketoacidosis without coma (2) Leukocytosis Status: Resolved Qualifiers: Leukocytosis type: unspecified Qualified Code(s): D72.829 - Elevated white blood cell count, unspecified (3) Acute encephalopathy Status: Resolved (4) Hypothyroidism Status: Chronic Qualifiers: Hypothyroidism type: acquired Qualified Code(s): E03.9 - Hypothyroidism, unspecified (5) DVT prophylaxis Status: Acute (6) Acute renal failure (ARF) Status: Resolved Qualifiers: Acute renal failure type: unspecified Qualified Code(s): N17.9 - Acute kidney failure, unspecified (7) Pancreatitis Status: Acute Qualifiers: Chronicity: acute Pancreatitis type: unspecified pancreatitis type Acute pancreatitis complication: unspecified Qualified Code(s): K85.90 - Acute pancreatitis without necrosis or infection, unspecified (8) Anemia Status: Chronic Qualifiers: Anemia type: iron deficiency Iron deficiency anemia type: unspecified iron deficiency Qualified Code(s): D50.9 - Iron deficiency anemia, unspecified Hospital course: Ms. Shay is a 52 year old female - Time Spent with Patient Total time spent providing and/or coordinating discharge services: - Discharge Medications Prescriptions: Continued Liothyronine Sodium 25 mcg PO QAM Simvastatin [Zocor] 40 mg PO DAILY Sertraline [Zoloft] 25 mg PO DAILY raNITIdine HCl [Zantac] 150 mg PO BID Meclizine HCl [Wal-Dram 2] 25 mg PO TID Lisinopril [Zestril] 5 mg PO DAILY Levothyroxine Sodium [Synthroid] 400 mcg PO QAM Hydrocodone/Acetaminophen [Hydrocodon-Acetaminophen 5-325] 1 tab PO BID PRN PRN Reason: Pain Gabapentin [Neurontin] 400 mg PO TID Dicyclomine Hcl [Bentyl] 20 mg PO BID Changed Insulin ASPART [NovoLOG] 5 unit SQ TIDWM #20 vial Insulin Degludec [Tresiba Flextouch U-100] 10 unit SQ HS #10 Home Medications: Dicyclomine Hcl [Bentyl] 20 mg PO BID 06/30/18 [History] Gabapentin [Neurontin] 400 mg PO TID 06/30/18 [History] Hydrocodone/Acetaminophen [Hydrocodon-Acetaminophen 5-325] 1 tab PO BID PRN 06/30/18 [History] Levothyroxine Sodium [Synthroid] 400 mcg PO QAM 06/30/18 [History] Liothyronine Sodium 25 mcg PO QAM 06/30/18 [History] Lisinopril [Zestril] 5 mg PO DAILY 06/30/18 [History] Meclizine HCl [Wal-Dram 2] 25 mg PO TID 06/30/18 [History] Sertraline [Zoloft] 25 mg PO DAILY 06/30/18 [History] Simvastatin [Zocor] 40 mg PO DAILY 06/30/18 [History] raNITIdine HCl [Zantac] 150 mg PO BID 06/30/18 [History] Insulin ASPART [NovoLOG] 5 unit SQ TIDWM #20 vial 07/08/18 [Rx] Insulin Degludec [Tresiba Flextouch U-100] 10 unit SQ HS #10 07/08/18 [Rx] Allergies/Adverse Reactions: Allergy/AdvReac Type Severity Reaction Status Date / Time pseudoephedrine Allergy Rash Verified 06/30/18 07:59 [From [facility]] Date of admission: 06/30/18 11:31 Primary care physician: PCP NONE Consults: 06/30/18 08:30 PICC LINE [Consult to Invasive Line Access Team] [CONS] Stat Reason for Consult: poor IV accesss Line Type: Midline 06/30/18 09:51 Consult to Nutrition [CONS] Routine Comment: Consulting Provider: NUTRITION Reason for Dietary Consult: Other Other:: loss of appetitie Consult to Pastoral Services [CONS] Routine Comment: Consult to District Commercial Superintendent [CONS] Routine Reason for SW Consult: court date today with juvenile court, need help getting information to court. - Constitutional Vitals: Temp Pulse Resp BP Pulse Ox 97.6 F 81 18 130/75 100 07/08/18 12:36 07/08/18 12:36 07/08/18 12:36 07/08/18 12:36 07/08/18 12:36 - Patient Status Disposition: Home, Self-Care Condition: Good - Discharge Instructions Follow Up With: Sunday Mcneil MD [Non-Partnered Physician] - 07/14/18 1:45 pm Additional Instructions: Please follow up with her primary care physician and second hand paper machine upon discharge. Take all medications as prescribed and please note that we did change her insulin regimen. Take her blood sugars before meals and in the morning and if low, contact her doctor and eat high carbohydrate foods. - Attending Attestation I examined this patient and my medical decision-making was reviewed with the Resident Physician. I agree with the documented findings, disposition and treatment plan as described except to the extent set forth below. Discharge time 40 min. <YariManuel - Last Filed: 07/08/18 14:53> - NOTES TO OUTPATIENT PROVIDER Notes to Outpatient Provider: Patient admitted for DKA complicated by pancreatitis. DKA has resolved and she is currently tolerating a full diet with minimal abdominal pain. We did adjust her insulin regimen due to greatly fluctuating blood sugars ranging from 40s to 400s. She is currently on 5 units prandial as well as 10 units of basal in the evening. She was instructed to follow-up with PCP and second hand paper machine for further adjustments. Orders not resulted at time of discharge: Pending orders 07/08/18 04:00 BMP [Basic Metabolic Panel] AM 0400 Date of Encounter: 07/08/18 Time of Encounter: 09:00 - Discharge Diagnosis (1) DKA (diabetic ketoacidoses) Priority: Primary Status: Resolved Qualifiers: Diabetes mellitus type: type 2 Diabetes mellitus complication detail: with out coma Qualified Code(s): E11.10 - Type 2 diabetes mellitus with ketoacidosis without coma (2) Pancreatitis Priority: Secondary Status: Acute Qualifiers: Chronicity: acute Pancreatitis type: unspecified pancreatitis type Acute pancreatitis complication: unspecified Qualified Code(s): K85.90 - Acute pancreatitis without necrosis or infection, unspecified (3) Leukocytosis Priority: Secondary Status: Resolved Qualifiers: Leukocytosis type: unspecified Qualified Code(s): D72.829 - Elevated white blood cell count, unspecified (4) Acute encephalopathy Priority: Secondary Status: Resolved (5) Hypothyroidism Priority: Secondary Status: Chronic Qualifiers: Hypothyroidism type: acquired Qualified Code(s): E03.9 - Hypothyroidism, unspecified (6) Acute renal failure (ARF) Priority: Secondary Status: Resolved Qualifiers: Acute renal failure type: unspecified Qualified Code(s): N17.9 - Acute kidney failure, unspecified (7) Anemia Priority: Secondary Status: Chronic Qualifiers: Anemia type: iron deficiency Iron deficiency anemia type: unspecified iron deficiency Qualified Code(s): D50.9 - Iron deficiency anemia, unspecified (8) DVT prophylaxis Priority: Secondary Status: Acute Hospital course: Ms. Shay is a 52 year old female with history of insulin-dependent diabetes and multiple DKA admissions, hypothyroidism and hyperlipidemia presented to the emergency department on 06/30/18 with altered mental status and elevated blood glucose. History was limited at the time of presentation due to the patient being unable to provide much history. As per patient his mother she does administer her own insulin when asked from the patient had much insulin if she administers long-acting insulin to herself she is unsure. She reports that she covers her glucose levels with sliding scale insulin at mealtimes. When asked to recall her medication list she is unable to name her medications however her mother provided us with her medication list. As per her mother she had multiple episodes of DKA's they were unable to recall them was the last time she had DKA. Once the pt was more awake, she said that she occasionally went into DKA but that she was compliant with her ADA diet/insulin regimen. As per patient her blood glucose has been running high for a few days and she is been trying to covered with her insulin at home. Her mother insisted that she will come to the emergency department for further evaluation and management of her elevated blood glucose levels. Patient denies dysuria, cough, fever, chills, nausea, vomiting or diarrhea. Has had no chest pain, no palpitations or shortness of breath. The patient was admitted for further evaluation and treatment. She was started on the ICU DKA protocol after being bloused with fluids. CT abdomen and pelvis report showed Mild mosaic attenuation at the lung bases suggesting small airways disease or air trapping. No pneumonia. Inflammatory changes seen surrounding the pancreas suggesting pancreatitis. Scattered areas of colonic wall thickening are seen, likely due to the contracted state of the colon in the absence of clinical signs of colitis. Trace free fluid in the pelvis. She was started on zosyn to cover for potential colonic infection and completed 5 full days of IV abx. She will have a diabetes education as an outpatient, which has been arranged for her. She also follows with outpatient endocrinology. We did adjust her insulin to 5 units prandial as well as 10 units basal in the evening. Her blood sugars have been much better controlled although she does experience some occasional asymptomatic hypoglycemic events. Insulin was decreased and she should follow with her primary care physician and second hand paper machine for further adjustment. The pt will also require an outpatient follow up with her PCP to retest her TSH level. She has low TSH with normal T3/T4 and is also on both synthoird at 400mcg and cytomel 25mcg. The patient is medically stable for discharge. She is tolerating a full ADA diet but was advised to take her diet slowly and start with soft foods. Glucose levels have been acceptable and safe for discharge. Discharge discussed with: patient, nurse, social work, case management - Time Spent with Patient Total time spent providing and/or coordinating discharge services: Date of admission: 06/30/18 11:31 Primary care physician: PCP NONE Consults: 06/30/18 08:30 PICC LINE [Consult to Invasive Line Access Team] [CONS] Stat Reason for Consult: poor IV accesss Line Type: Midline 06/30/18 09:51 Consult to Nutrition [CONS] Routine Comment: Consulting Provider: NUTRITION Reason for Dietary Consult: Other Other:: loss of appetitie Consult to Pastoral Services [CONS] Routine Comment: Consult to District Commercial Superintendent [CONS] Routine Reason for SW Consult: court date today with juvenile court, need help getting information to court. Discharging clinician: Manuel Greenberg Anticipated date of discharge: 07/08/18 - Constitutional Vitals: Temp Pulse Resp BP Pulse Ox 98.1 F 73 16 123/65 96 07/08/18 04:44 07/08/18 04:44 07/08/18 04:44 07/08/18 04:44 07/08/18 04:44 Exam: Gen.: Vitals noted. No acute distress. AAOx3, resting comfortably in bed. HEENT: PERRL/EOMI, oropharynx clear, Normocephalic, atraumatic, MMM Cardiac: RRR, no murmur, +S1/S2, No BLE edema Pulmonary: CTA bilaterally, no wheezes, rales or rhonchi, equal chest expansion, unlabored breathing Abdomen: soft, mildly tender to epigastric and suprapubic region, no rebound tenderness., BS noted, no guarding, no palpable HSM Skin: warm and dry, no visible lesions. MSK: ROM intact, no joint swelling noted, gait no assessed while in bed. Non tender calf or clubbing Neuro: A&Ox3, moves all extremities, no focal deficits, sensation intact Psych: Appropriate mood and behavior, AOx3 - Patient Status Functional capacity at discharge: independent ambulation Overall status at discharge: patient is progressing back to baseline - Diet and Activity Activity: increase activity as tolerated, return to work once cleared by your PCP/specialist, resume usual activities as tolerated Diet: advance to your usual diet, diabetic diet, other (start slow with soft foods and advance as tolerated)
[2018-07-08 08:32] LABS: BUN/Creatinine Ratio 10 (6-26); Blood Urea Nitrogen 4 mg/dL (6-20); Calcium 8.5 mg/dL (8.6-10.3); Carbon Dioxide 25 mEq/L (23-29); Chloride 113 mEq/L (98-107); Glucose 113 mg/dL (70-105); Osmolality,Calculated 292 (280-300); Potassium 3.2 mEq/L (3.5-5.1); Sodium 142 mEq/L (136-145); eGFR For Non-African Americans > 60 (> 60)
[2018-07-08 12:39] VITALS: BP 130/75
== END 2018-07-08 14:56 | disposition home or self-care (01) | DRG 871 ==
LOC: EMEROOARM 05:01 → MERGE 05:01 → ICNU 05:01 → SUATTDRO 11:31 → 2NNU 07-02 → 3ANU 07-03 20:23 → 2ANU 07-06 11:50
PROVIDERS: ADMIT Pediatrics; ATTEND Student in an Organized Health Care Education/Training Program

== ENCOUNTER 2018-12-22 16:45 | Inpatient (IN) ==
[2018-12-22] MEDS ORDERED: *HR* Dextrose 50 % in Water (Syg) 50 ML SYRINGE IVP PRN (18:34)
[2018-12-22] MEDS: 0.9 % Sodium Chloride 1,000 ML IVC SCH ×2 (19:04→19:52)
[2018-12-22 19:23] LABS: Basophils # 0.1 K/mcL (0.0-0.2); Basophils % 1.4 %; Eosinophils # 0.2 K/mcL (0.0-0.6); Eosinophils % 4.2 %; Hematocrit 33.5 % (35.3-44.9); Hemoglobin 11.4 g/dL (11.5-15.4); Immature Granulocytes % 0.4 % (0-4); Lymphocytes # 2.1 K/mcL (0.6-4.6); Lymphocytes % 37.6 %; Mean Corpuscular Volume 105.7 fL (83.0-100.0); Monocytes # 0.7 K/mcL (0.0-1.3); Monocytes % 11.4 %; Neutrophils # 2.6 K/mcL (1.6-8.9); Platelet Count 277 K/mcL (140-400); Red Blood Count 3.17 M/mcL (3.82-4.97); Red Cell Distribution Width 13.6 % (11.5-14.5); White Blood Count 5.7 K/mcL (4.3-11.1)
[2018-12-22 19:26] LABS: Bilirubin,Urine Large (Negative); Blood,Urine Negative (Negative); Clarity,Urine Cloudy (Clear); Color,Urine Yellow (Yellow); Glucose,Urine (UA) 500 mg/dL (Normal); Ketones,Urine 80 mg/dL (Negative); Leukocyte Esterase,Urine Small (Negative); Nitrite,Urine Negative (Negative); PH,Urine 5.5 pH Units (5.0-8.0); Protein,Urine 30 mg/dL (Neg-Trace); Specific Gravity,Urine 1.028 (1.010-1.025); Urobilinogen,Urine Normal (Normal)
[2018-12-22 19:28] LABS: Bacteria,Urine Few per hpf (None-Few); Hyaline Casts,Urine None Seen per lpf (None-Few); Squamous Epithelial Cell,Urine Many per lpf (None-Few); WBC,Urine 50-100 per hpf (0-3)
[2018-12-22 19:28] LABS: VBG HCO3 18 mEq/L (21-27); VBG PCO2 32 mmHg (41-51); VBG PH 7.35 pH Units (7.32-7.42); VBG PO2 66 mmHg (25-50)
[2018-12-22 19:55] LABS: Troponin I < 0.03 ng/mL (< 0.04)
[2018-12-22 19:58] LABS: BUN/Creatinine Ratio 13 (6-26); Blood Urea Nitrogen 11 mg/dL (6-20); Calcium 9.1 mg/dL (8.6-10.3); Carbon Dioxide 16 mEq/L (23-29); Chloride 103 mEq/L (98-107); Glucose 111 mg/dL (70-105); Osmolality,Calculated 284 (280-300); Potassium 3.3 mEq/L (3.5-5.1); Sodium 137 mEq/L (136-145); eGFR For African Americans > 60 (> 60); eGFR For Non-African Americans > 60 (> 60)
[2018-12-22] MEDS ORDERED: cefTRIAXone 1,000 MG in 0.9 % Sodium Chloride Mini Bag 100 ML IVPB ONE (20:16)
[2018-12-22] MEDS ORDERED: Potassium Chloride Elixir 20 MEQ/15 ML UDC PO ONE (20:17)
[2018-12-22] MEDS ORDERED: CefTRIAXone 1,000 MG VIAL ONE (20:37)
[2018-12-22] MEDS ORDERED: Water for inj. (sterile) 10 ML ONE (20:40)
[2018-12-22] MEDS ORDERED: cefTRIAXone 1,000 MG in Water for inj. (sterile) 10 ML IVP ONE (20:45)
[2018-12-22] MEDS ORDERED: Ondansetron 4 MG/2 ML VIAL IVP PRN (21:46)
[2018-12-22] MEDS ORDERED: Naloxone 0.4 MG/ML INJ IVP PRN (21:46)
[2018-12-22] MEDS: Ringers Solution, Lactated 1,000 ML IVC SCH (22:43)
[2018-12-23] MEDS ORDERED: Dextrose Gel 15 GM/37.5 ML TUBE PO PRN (01:13)
[2018-12-23] MEDS ORDERED: D5% in Water 1,000 ML IVC PRN (01:13)
[2018-12-23] MEDS ORDERED: Ringers Solution, Lactated 1,000 ML IVC SCH (01:15)
[2018-12-23] MEDS: *HR* HYDROcodone/Acet 5/325 mg TABLET PO PRN ×3 (01:39→21:11)
[2018-12-23 04:28] LABS: Basophils # 0.1 K/mcL (0.0-0.2); Basophils % 1.5 %; Eosinophils # 0.3 K/mcL (0.0-0.6); Eosinophils % 7.6 %; Hematocrit 27.7 % (35.3-44.9); Immature Granulocytes % 0.3 % (0-4); Lymphocytes # 1.4 K/mcL (0.6-4.6); Lymphocytes % 41.2 %; Mean Corpuscular HGB Conc 34.3 g/dL (31.6-35.5); Mean Corpuscular Hemoglobin 36.4 pg (28.0-33.3); Mean Corpuscular Volume 106.1 fL (83.0-100.0); Mean Platelet Volume 10.7 fL (9.4-12.4); Monocytes # 0.3 K/mcL (0.0-1.3); Monocytes % 10.3 %; Neutrophils # 1.3 K/mcL (1.6-8.9); Platelet Count 219 K/mcL (140-400); Red Blood Count 2.61 M/mcL (3.82-4.97); Red Cell Distribution Width 13.2 % (11.5-14.5); Segmented Neutrophils % 39.1 %; White Blood Count 3.3 K/mcL (4.3-11.1)
[2018-12-23 04:28] LABS: Lipase 14 Units/L (11-82)
[2018-12-23 04:35] LABS: INR 0.9; Prothrombin Time 10.1 Seconds (9.4-12.1)
[2018-12-23 04:38] LABS: Activated Partial Thrombo Time 23.3 Seconds (26.0-36.0)
[2018-12-23 04:49] LABS: Alanine Aminotransferase 29 Units/L (7-52); Albumin 2.8 g/dL (3.5-5.7); Albumin/Globulin Ratio 1.1 (1.1-2.2); Alkaline Phosphatase 164 Units/L (34-104); Aspartate Amino Transferase 44 Units/L (13-39); BUN/Creatinine Ratio 15 (6-26); Bilirubin,Total 0.6 mg/dL (0.3-1.0); Blood Urea Nitrogen 11 mg/dL (6-20); Calcium 7.7 mg/dL (8.6-10.3); Carbon Dioxide 16 mEq/L (23-29); Chloride 102 mEq/L (98-107); Globulin 2.6 g/dL (2.4-3.5); Glucose 483 mg/dL (70-105); Osmolality,Calculated 293 (280-300); Potassium 4.3 mEq/L (3.5-5.1); Sodium 131 mEq/L (136-145); Total Protein 5.4 g/dL (6.4-8.9); eGFR For African Americans > 60 (> 60); eGFR For Non-African Americans > 60 (> 60)
[2018-12-23 05:00] LABS: Hemoglobin 9.5 g/dL (11.5-15.4)
[2018-12-23] MEDS: Ringers Solution, Lactated 1,000 ML IVC SCH (05:02)
[2018-12-23] MEDS: *HR* Heparin 5,000 UNIT/ML VIAL SQ SCH ×3 (05:05→22:45)
[2018-12-23 08:50] LABS: Estimated Average Glucose 243 mg/dl
[2018-12-23] MEDS: Insulin LISPRO 300 UNITS/3 ML VIAL SQ SCH ×3 (08:57→17:12)
[2018-12-23] MEDS: Famotidine 20 MG TABLET PO SCH ×2 (08:58→21:12)
[2018-12-23] MEDS: Gabapentin 400 MG CAPSULE PO SCH ×3 (08:58→21:12)
[2018-12-23] MEDS: Insulin DETEMIR 100 UNIT/ML X5UNITS SQ SCH ×2 (10:10→10:11)
[2018-12-23] MEDS ORDERED: Insulin DETEMIR 100 UNIT/ML X5UNITS SQ SCH (21:00)
[2018-12-24 04:41] LABS: Basophils # 0.1 K/mcL (0.0-0.2); Basophils % 1.6 %; Eosinophils # 0.4 K/mcL (0.0-0.6); Hematocrit 29.9 % (35.3-44.9); Hemoglobin 10.5 g/dL (11.5-15.4); Immature Granulocytes % 0.3 % (0-4); Lymphocytes # 1.5 K/mcL (0.6-4.6); Lymphocytes % 46.1 %; Mean Corpuscular HGB Conc 35.1 g/dL (31.6-35.5); Mean Corpuscular Hemoglobin 36.5 pg (28.0-33.3); Mean Corpuscular Volume 103.8 fL (83.0-100.0); Mean Platelet Volume 10.6 fL (9.4-12.4); Monocytes # 0.3 K/mcL (0.0-1.3); Monocytes % 9.4 %; Platelet Count 240 K/mcL (140-400); Red Blood Count 2.88 M/mcL (3.82-4.97); Red Cell Distribution Width 13.6 % (11.5-14.5); Segmented Neutrophils % 31.6 %; White Blood Count 3.2 K/mcL (4.3-11.1)
[2018-12-24 05:02] LABS: BUN/Creatinine Ratio 12 (6-26); Blood Urea Nitrogen 8 mg/dL (6-20); Calcium 8.6 mg/dL (8.6-10.3); Carbon Dioxide 18 mEq/L (23-29); Chloride 107 mEq/L (98-107); Glucose 172 mg/dL (70-105); Osmolality,Calculated 284 (280-300); Potassium 3.9 mEq/L (3.5-5.1); Sodium 136 mEq/L (136-145); eGFR For African Americans > 60 (> 60); eGFR For Non-African Americans > 60 (> 60)
[2018-12-24] MEDS: *HR* Heparin 5,000 UNIT/ML VIAL SQ SCH (05:22)
[2018-12-24] MEDS ORDERED: cefTRIAXone 1,000 MG in Water for inj. (sterile) 10 ML IVP SCH (09:00)
[2018-12-24] MEDS: Gabapentin 400 MG CAPSULE PO SCH (09:26)
[2018-12-24] MEDS: Famotidine 20 MG TABLET PO SCH (09:27)
[2018-12-24] MEDS: Insulin DETEMIR 100 UNIT/ML X5UNITS SQ SCH (09:28)
[2018-12-24] MEDS: Insulin LISPRO 300 UNITS/3 ML VIAL SQ SCH ×2 (09:58→13:26)
[2018-12-24] MEDS: *HR* HYDROcodone/Acet 5/325 mg TABLET PO PRN (09:59)
[2018-12-24 12:41] VITALS: BP 161/62
[2018-12-24] MEDS ORDERED: FLU Vac QV 19-20 (6Month+)/PF 0.5 ML SYRINGE IM ONE (13:09)
== END 2018-12-24 15:37 | disposition home or self-care (01) | DRG 690 ==
LOC: 2NENU 16:45 → EMEROOARM 16:45 → SUATTDRO 21:00 → 2NENU 21:30
PROVIDERS: ADMIT Internal Medicine; ATTEND Internal Medicine

== ENCOUNTER 2020-07-09 14:48 | Inpatient (IN) ==
[2020-07-09] MEDS ORDERED: Ringers Solution, Lactated 1,000 ML IVC ONE ×3 (14:55→16:21)
[2020-07-09] MEDS ORDERED: Ondansetron 4 MG/2 ML VIAL IVP ONE (15:14)
[2020-07-09 15:30] LABS: VBG HCO3 8 mEq/L (21-27); VBG PCO2 25 mmHg (41-51); VBG PH 7.13 pH Units (7.32-7.42); VBG PO2 49 mmHg (25-50)
[2020-07-09 15:34] LABS: Basophils # 0.1 K/mcL (0.0-0.2); Basophils % 1.3 %; Eosinophils # 0.2 K/mcL (0.0-0.6); Eosinophils % 1.8 %; Hematocrit 45.5 % (35.3-44.9); Hemoglobin 15.2 g/dL (11.5-15.4); Immature Granulocytes % 0.3 % (0-4); Lymphocytes % 21.4 %; Mean Corpuscular HGB Conc 33.4 g/dL (31.6-35.5); Mean Corpuscular Hemoglobin 33.3 pg (28.0-33.3); Mean Corpuscular Volume 99.8 fL (83.0-100.0); Mean Platelet Volume 10.9 fL (9.4-12.4); Monocytes # 0.7 K/mcL (0.0-1.3); Monocytes % 7.5 %; Neutrophils # 6.3 K/mcL (1.6-8.9); Platelet Count 420 K/mcL (140-400); Red Blood Count 4.56 M/mcL (3.82-4.97); Red Cell Distribution Width 11.9 % (11.5-14.5); Segmented Neutrophils % 67.7 %; White Blood Count 9.3 K/mcL (4.3-11.1)
[2020-07-09 15:55] LABS: Alanine Aminotransferase 33 Units/L (7-52); Albumin 4.5 g/dL (3.5-5.7); Alkaline Phosphatase 232 Units/L (34-104); Aspartate Amino Transferase 37 Units/L (13-39); BUN/Creatinine Ratio 14 (6-26); Bilirubin,Total 0.5 mg/dL (0.3-1.0); Blood Urea Nitrogen 20 mg/dL (6-20); Calcium 10.8 mg/dL (8.6-10.3); Carbon Dioxide 8 mEq/L (23-29); Chloride 97 mEq/L (98-107); Globulin 4.7 g/dL (2.4-3.5); Glucose 258 mg/dL (70-105); Magnesium 2.1 mg/dL (1.6-2.6); Osmolality,Calculated 291 (280-300); Phosphorous 3.4 mg/dL (2.7-4.5); Potassium 2.8 mEq/L (3.5-5.1); Sodium 135 mEq/L (136-145); Total Protein 9.2 g/dL (6.4-8.9); Troponin I < 0.03 ng/mL (< 0.04); eGFR For African Americans 46 (> 60); eGFR For Non-African Americans 38 (> 60)
[2020-07-09] MEDS ORDERED: Potassium Chloride 40 MEQ, Lidocaine 1% 2 ML in 0.9 % Sodium Chloride 500 ML IVPB ONE (16:14)
[2020-07-09] MEDS ORDERED: cefTRIAXone 1,000 MG in Water for inj. (sterile) 10 ML IVP ONE (16:21)
[2020-07-09 16:55] LABS: Lipase 10 Units/L (11-82)
[2020-07-09] MEDS ORDERED: Isovue-370 500 ML BOTTLE IVP ONE (17:01)
[2020-07-09] MEDS ORDERED: *HR* Dextrose 50 % in Water (Vial) 50 ML VIAL IVP PRN (17:49)
[2020-07-09] MEDS ORDERED: D5% in 0.45% NACL w KCl 20 MEQ/1,000 ML MLS IVC PRN (17:49)
[2020-07-09] MEDS ORDERED: Naloxone 0.4 MG/ML INJ IVP PRN (17:49)
[2020-07-09] MEDS ORDERED: Insulin Regular, Human 100 UNIT/ML IV PRN (17:49)
[2020-07-09] MEDS ORDERED: Ondansetron 4 MG/2 ML VIAL IVP PRN (18:00)
[2020-07-09 19:55] LABS: VBG Ionized Calcium 1.18 mmol/L (1.15-1.35)
[2020-07-09 20:25] LABS: BUN/Creatinine Ratio 15 (6-26); Blood Urea Nitrogen 16 mg/dL (6-20); Calcium 9.9 mg/dL (8.6-10.3); Carbon Dioxide 20 mEq/L (23-29); Chloride 100 mEq/L (98-107); Glucose 64 mg/dL (70-105); Magnesium 1.7 mg/dL (1.6-2.6); Osmolality,Calculated 279 (280-300); Phosphorous 2.4 mg/dL (2.7-4.5); Potassium 3.9 mEq/L (3.5-5.1); Sodium 135 mEq/L (136-145); eGFR For African Americans > 60 (> 60); eGFR For Non-African Americans 55 (> 60)
[2020-07-09] MEDS: MetroNIDAZOLE 500 MG/100 ML 500 MG/100 ML BAG IVPB SCH (21:09)
[2020-07-09] MEDS: Pantoprazole 40 MG VIAL IVP SCH (21:09)
[2020-07-09] MEDS: 0.9 % Sodium Chloride w KCl 20 MEQ/1,000 ML MLS IVC SCH (21:09)
[2020-07-09] MEDS: *HR* Heparin 5,000 UNIT/ML VIAL SQ SCH (22:58)
[2020-07-09 23:02] LABS: VBG Ionized Calcium 1.16 mmol/L (1.15-1.35)
[2020-07-09 23:19] LABS: BUN/Creatinine Ratio 17 (6-26); Blood Urea Nitrogen 16 mg/dL (6-20); Calcium 9.2 mg/dL (8.6-10.3); Carbon Dioxide 22 mEq/L (23-29); Chloride 102 mEq/L (98-107); Glucose 160 mg/dL (70-105); Osmolality,Calculated 285 (280-300); Potassium 4.5 mEq/L (3.5-5.1); Sodium 135 mEq/L (136-145); eGFR For African Americans > 60 (> 60); eGFR For Non-African Americans > 60 (> 60)
[2020-07-09 23:20] LABS: Magnesium 1.9 mg/dL (1.6-2.6); Phosphorous 2.6 mg/dL (2.7-4.5)
[2020-07-10] MEDS ORDERED: MetroNIDAZOLE 500 MG/100 ML 500 MG/100 ML BAG IVPB SCH
[2020-07-10] MEDS ORDERED: D5% in Water 1,000 ML IVC PRN (00:15)
[2020-07-10] MEDS ORDERED: Dextrose Gel 15 GM/37.5 ML TUBE PO PRN ×2 (00:15)
[2020-07-10] MEDS ORDERED: Insulin DETEMIR 100 UNIT/ML X5UNITS SUBQ ONE (00:18)
[2020-07-10 01:01] LABS: Basophils # 0.1 K/mcL (0.0-0.2); Basophils % 1.2 %; Eosinophils # 0.1 K/mcL (0.0-0.6); Eosinophils % 1.5 %; Hematocrit 35.7 % (35.3-44.9); Immature Granulocytes % 0.4 % (0-4); Lymphocytes % 25.8 %; Mean Corpuscular HGB Conc 34.2 g/dL (31.6-35.5); Mean Corpuscular Hemoglobin 32.4 pg (28.0-33.3); Mean Corpuscular Volume 94.9 fL (83.0-100.0); Mean Platelet Volume 11.1 fL (9.4-12.4); Monocytes # 0.8 K/mcL (0.0-1.3); Monocytes % 10.3 %; Neutrophils # 4.6 K/mcL (1.6-8.9); Platelet Count 305 K/mcL (140-400); Red Blood Count 3.76 M/mcL (3.82-4.97); Red Cell Distribution Width 11.6 % (11.5-14.5); Segmented Neutrophils % 60.8 %; White Blood Count 7.6 K/mcL (4.3-11.1)
[2020-07-10] MEDS: MetroNIDAZOLE 500 MG/100 ML 500 MG/100 ML BAG IVPB SCH ×2 (01:03→07:38)
[2020-07-10] MEDS: Cefepime HCl 2,000 MG in Water for inj. (sterile) 20 ML IVP SCH ×2 (01:04→07:37)
[2020-07-10 01:06] LABS: VBG HCO3 21 mEq/L (21-27); VBG PCO2 34 mmHg (41-51); VBG PO2 113 mmHg (25-50)
[2020-07-10 01:06] LABS: Hemoglobin 12.2 g/dL (11.5-15.4)
[2020-07-10 01:13] LABS: Amylase 13 Units/L (29-103); Lipase 7 Units/L (11-82)
[2020-07-10 01:16] LABS: Alanine Aminotransferase 24 Units/L (7-52); Albumin 3.4 g/dL (3.5-5.7); Alkaline Phosphatase 163 Units/L (34-104); Aspartate Amino Transferase 32 Units/L (13-39); BUN/Creatinine Ratio 17 (6-26); Bilirubin,Direct 0.1 mg/dL (0.0-0.2); Bilirubin,Indirect 0.5 mg/dL (0.0-1.0); Bilirubin,Total 0.6 mg/dL (0.3-1.0); Blood Urea Nitrogen 16 mg/dL (6-20); Calcium 9.2 mg/dL (8.6-10.3); Carbon Dioxide 20 mEq/L (23-29); Chloride 103 mEq/L (98-107); Globulin 3.4 g/dL (2.4-3.5); Glucose 250 mg/dL (70-105); Magnesium 1.9 mg/dL (1.6-2.6); Osmolality,Calculated 290 (280-300); Potassium 4.5 mEq/L (3.5-5.1); Sodium 135 mEq/L (136-145); Total Protein 6.8 g/dL (6.4-8.9); Troponin I < 0.03 ng/mL (< 0.04); eGFR For African Americans > 60 (> 60); eGFR For Non-African Americans > 60 (> 60)
[2020-07-10 01:43] LABS: Bilirubin,Urine Negative (Negative); Blood,Urine Negative (Negative); Clarity,Urine Clear (Clear); Color,Urine Yellow (Yellow); Glucose,Urine (UA) 200 mg/dL (Normal); Ketones,Urine 20 mg/dL (Negative); Leukocyte Esterase,Urine Large (Negative); Mucus,Urine Few per lpf (None-Few); Nitrite,Urine Negative (Negative); Protein,Urine 30 mg/dL (Neg-Trace); Specific Gravity,Urine > 1.030 (1.010-1.025); Squamous Epithelial Cell,Urine Few per hpf (None-Few); Urobilinogen,Urine Normal (Normal); WBC,Urine 50-100 per hpf (0-3)
[2020-07-10] MEDS: *HR* Heparin 5,000 UNIT/ML VIAL SQ SCH ×3 (06:51→21:34)
[2020-07-10] MEDS: Pantoprazole 40 MG VIAL IVP SCH ×2 (06:51→17:04)
[2020-07-10] MEDS: 0.9 % Sodium Chloride w KCl 20 MEQ/1,000 ML MLS IVC SCH ×3 (06:52→07:23)
[2020-07-10] MEDS: Insulin LISPRO 300 UNITS/3 ML VIAL SUBQ SCH ×4 (07:38→20:50)
[2020-07-10] MEDS: Acetaminophen 325 MG TABLET PO PRN (09:36)
[2020-07-10] MEDS: cefTRIAXone 1,000 MG in Water for inj. (sterile) 10 ML IVP SCH ×2 (10:04→12:48)
[2020-07-10] MEDS: Gabapentin 400 MG CAPSULE PO SCH ×2 (14:40→21:34)
[2020-07-10] MEDS ORDERED: Insulin DETEMIR 100 UNIT/ML X5UNITS SUBQ SCH (21:00)
[2020-07-11] MEDS: *HR* Heparin 5,000 UNIT/ML VIAL SQ SCH ×3 (05:45→21:11)
[2020-07-11] MEDS: Pantoprazole 40 MG VIAL IVP SCH (05:46)
[2020-07-11] MEDS: Acetaminophen 325 MG TABLET PO PRN (06:38)
[2020-07-11 06:59] LABS: Hematocrit 35.4 % (35.3-44.9); Hemoglobin 11.9 g/dL (11.5-15.4); Mean Corpuscular HGB Conc 33.6 g/dL (31.6-35.5); Mean Corpuscular Hemoglobin 32.9 pg (28.0-33.3); Mean Corpuscular Volume 97.8 fL (83.0-100.0); Mean Platelet Volume 11.1 fL (9.4-12.4); Platelet Count 217 K/mcL (140-400); Red Blood Count 3.62 M/mcL (3.82-4.97); Red Cell Distribution Width 12.2 % (11.5-14.5)
[2020-07-11 07:42] LABS: BUN/Creatinine Ratio 15 (6-26); Blood Urea Nitrogen 11 mg/dL (6-20); Calcium 9.1 mg/dL (8.6-10.3); Carbon Dioxide 21 mEq/L (23-29); Chloride 104 mEq/L (98-107); Glucose 109 mg/dL (70-105); Osmolality,Calculated 282 (280-300); Potassium 3.2 mEq/L (3.5-5.1); Sodium 136 mEq/L (136-145); eGFR For African Americans > 60 (> 60); eGFR For Non-African Americans > 60 (> 60)
[2020-07-11] MEDS: polyethylene glycoL 3350 17 GM POWD.PACK PO SCH ×2 (08:33→21:14)
[2020-07-11] MEDS: Gabapentin 400 MG CAPSULE PO SCH ×3 (08:33→21:11)
[2020-07-11] MEDS: Insulin LISPRO 300 UNITS/3 ML VIAL SUBQ SCH ×4 (08:34→21:19)
[2020-07-11] MEDS ORDERED: Insulin DETEMIR 100 UNIT/ML X5UNITS SUBQ SCH (21:00)
[2020-07-12] MEDS: *HR* Heparin 5,000 UNIT/ML VIAL SQ SCH ×3 (05:38→22:03)
[2020-07-12] MEDS: Insulin LISPRO 300 UNITS/3 ML VIAL SUBQ SCH ×4 (08:12→22:19)
[2020-07-12] MEDS: Gabapentin 400 MG CAPSULE PO SCH ×3 (09:22→20:23)
[2020-07-12] MEDS: polyethylene glycoL 3350 17 GM POWD.PACK PO SCH ×2 (09:23→20:22)
[2020-07-12] MEDS ORDERED: Bisacodyl 10 MG RECTAL SUPPOSITORY RC ONE (09:37)
[2020-07-12] MEDS ORDERED: Insulin DETEMIR 100 UNIT/ML X5UNITS SUBQ SCH (11:00)
[2020-07-12] MEDS ORDERED: Milk and Molasses Enema 200 ML RC ONE (11:52)
[2020-07-13] MEDS: *HR* Heparin 5,000 UNIT/ML VIAL SQ SCH ×3 (05:33→21:03)
[2020-07-13] MEDS ORDERED: Insulin DETEMIR 100 UNIT/ML X5UNITS SUBQ SCH ×2 (08:15→21:00)
[2020-07-13] MEDS: Insulin DETEMIR 100 UNIT/ML X5UNITS SUBQ SCH (09:50)
[2020-07-13] MEDS: Insulin LISPRO 300 UNITS/3 ML VIAL SUBQ SCH ×4 (09:50→20:54)
[2020-07-13] MEDS: Gabapentin 400 MG CAPSULE PO SCH ×3 (09:51→21:01)
[2020-07-13] MEDS: polyethylene glycoL 3350 17 GM POWD.PACK PO SCH ×2 (09:51→21:02)
[2020-07-13] MEDS: Acetaminophen 325 MG TABLET PO PRN (18:21)
[2020-07-13] MEDS: *HR* HYDROcodone/Acet 5/325 mg TABLET PO PRN (21:02)
[2020-07-14] MEDS: *HR* Heparin 5,000 UNIT/ML VIAL SQ SCH (05:33)
[2020-07-14 06:46] VITALS: BP 135/80
[2020-07-14] MEDS: polyethylene glycoL 3350 17 GM POWD.PACK PO SCH (07:11)
[2020-07-14] MEDS: Gabapentin 400 MG CAPSULE PO SCH (07:11)
[2020-07-14] MEDS: Insulin DETEMIR 100 UNIT/ML X5UNITS SUBQ SCH (07:21)
[2020-07-14] MEDS: Acetaminophen 325 MG TABLET PO PRN (07:24)
[2020-07-14] MEDS: Insulin LISPRO 300 UNITS/3 ML VIAL SUBQ SCH (08:01)
[2020-07-14] MEDS: *HR* HYDROcodone/Acet 5/325 mg TABLET PO PRN (09:21)
== END 2020-07-14 10:47 | disposition home or self-care (01) | DRG 637 ==
LOC: EMEROOARM 14:48 → SUATTDRO 18:38 → ICNU 18:38 → 2NNU 20:39 → 3ANU 07-10 13:33
PROVIDERS: ADMIT Pediatrics; ATTEND Internal Medicine